=== PATIENT | female | born 1935 | race Caucasian/White ===

== ENCOUNTER 2016-10-01 16:44 | Emergency (ER) | payer MEDICARE ==
[2016-10-01] MEDS ORDERED: CEFUROXIME AXETIL 250 MG TABLET PO STA (17:29)
[2016-10-01] MEDS ORDERED: DEXAMETHASONE 10 MG/ML VIAL PO STA (17:29)
[2016-10-01] MEDS ORDERED: DEXAMETHASONE 10 MG/ML VIAL ONE (17:36)
[2016-10-01] MEDS ORDERED: CHERRY SYRUP 10 ML UDC PO ONE (17:36)
[2016-10-01] MEDS ORDERED: CEPHALEXIN 250 MG CAPSULE PO STA (17:38)
[2016-10-01] MEDS ORDERED: CEPHALEXIN 250 MG CAPSULE PO ONE (17:38)
== END 2016-10-01 17:48 | disposition home or self-care (01) ==
DX: J40 Bronchitis, not specified as acute or chronic (principal); R13.10 Dysphagia, unspecified; I10 Essential (primary) hypertension; Z85.89 Personal history of malignant neoplasm of other organs and systems; Z95.5 Presence of coronary angioplasty implant and graft; Z79.82 Long term (current) use of aspirin; Z87.891 Personal history of nicotine dependence
CPT/HCPCS: 71020; 99283; A9270

== ENCOUNTER 2016-11-25 16:56 | Emergency (ER) | payer MEDICARE ==
[2016-11-25] MEDS ORDERED: predniSONE 20 MG TABLET PO STA (17:30)
[2016-11-25] MEDS ORDERED: AZITHROMYCIN 250 MG TABLET PO STA (17:30)
[2016-11-25] MEDS ORDERED: AZITHROMYCIN 250 MG TABLET PO ONE (17:57)
[2016-11-25] MEDS ORDERED: predniSONE 20 MG TABLET ONE (17:57)
== END 2016-11-25 18:26 | disposition home or self-care (01) ==
DX: J40 Bronchitis, not specified as acute or chronic (principal); I10 Essential (primary) hypertension; Z85.01 Personal history of malignant neoplasm of esophagus; Z87.19 Personal history of other diseases of the digestive system; I25.2 Old myocardial infarction; E03.9 Hypothyroidism, unspecified; Z87.891 Personal history of nicotine dependence
CPT/HCPCS: 71020; 99283; A9270; J7512

== ENCOUNTER 2016-12-17 04:17 | Outpatient (CLI) | payer MEDICARE | END 2016-12-17 04:18 | disposition critical access hospital (66) | DX: R06.02 Shortness of breath (principal) | CPT/HCPCS: A0425; A0427 ==

== ENCOUNTER 2016-12-17 04:30 | Emergency (ER) | payer MEDICARE ==
[2016-12-17] MEDS ORDERED: DEXAMETHASONE 10 MG/ML VIAL IVP STA (04:37)
[2016-12-17] MEDS ORDERED: RACEPINEPHRINE 2.25% NEB INH ONE ×2 (04:39→09:00)
[2016-12-17] MEDS ORDERED: DEXAMETHASONE 10 MG/ML VIAL ONE (04:42)
[2016-12-17] MEDS ORDERED: RACEPINEPHRINE 2.25% NEB INH STA ×2 (04:46→08:52)
[2016-12-17] MEDS ORDERED: D5.45NS W/20 MEQ KCL 1,000 ML IV STA (08:36)
[2016-12-17] MEDS ORDERED: D5.45NS W/20 MEQ KCL 1,000 ML IV SCH (09:00)
[2016-12-17] MEDS ORDERED: SODIUM CHLORIDE INHALATION 3 ML NEB ONE (09:01)
== END 2016-12-17 10:39 | disposition short-term general hospital (02) ==
DX: R06.1 Stridor (principal); C13.9 Malignant neoplasm of hypopharynx, unspecified; C79.89 Secondary malignant neoplasm of other specified sites; I10 Essential (primary) hypertension; I25.2 Old myocardial infarction; E03.9 Hypothyroidism, unspecified; Z87.19 Personal history of other diseases of the digestive system; Z87.891 Personal history of nicotine dependence
CPT/HCPCS: 70360; 94640; 96365; 96375; 99284; A9270

== ENCOUNTER 2017-02-03 19:18 | Emergency (ER) | payer MEDICARE ==
--- NOTE | 2017-02-03 19:37 | ED Physician Documentation ---
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 and it is obstructed today.) Review of Systems Constitutional: reports: Reviewed and negative Cardiac: reports: Reviewed and negative Respiratory: reports: Reviewed and negative PD PAST MEDICAL HISTORY - Past Medical History Cardiovascular: Hypertension, [place] Respiratory: None Neuro: None Endocrine/Autoimmune: HyPOthyroidism GI: Diverticulitis : None HEENT: Other Psych: None Musculoskeletal: Other Derm: None - Past Surgical History Past Surgical History: Yes General: Cholecystectomy Cardiovascular: Coronary stent HEENT: Tonsil/Adenoidectomy - Present Medications Home Medications: Ambulatory Orders Medication Instructions Recorded Confirmed Atenolol [Tenormin] 50 mg PO BID 11/30/13 12/17/16 Felodipine [Felodipine ER] 10 mg PO DAILY 05/30/16 12/17/16 Levothyroxine Sodium 75 mcg PO DAILY 05/30/16 12/17/16 Omeprazole 20 mg PO DAILY 05/30/16 12/17/16 Simvastatin 40 mg PO QPM 05/30/16 12/17/16 cloNIDine [Catapres] 0.1 mg ORAL QPM 10/01/16 12/17/16 Cholecalciferol (Vitamin D3) 1 cap ORAL DAILY 12/17/16 12/17/16 [Vitamin D3] Cyanocobalamin (Vitamin B-12) 1 tab ORAL DAILY 12/17/16 12/17/16 [Vitamin B-12 (500 mcg sublingual)] Hydrochlorothiazide 12.5 mg ORAL DAILY 12/17/16 12/17/16 Ibuprofen 400 mg ORAL PRN PRN 12/17/16 12/17/16 Lisinopril 1 tab ORAL BID 12/17/16 12/17/16 Multivit with Iron-Minerals 1 tab ORAL DAILY 12/17/16 12/17/16 [Cerovite Jr] Ubidecarenone [Co Q-10] 1 cap ORAL DAILY 12/17/16 12/17/16 oxyCODONE [Roxicodone] 1 tab ORAL PRN PRN 12/17/16 12/17/16 - Allergies Allergies/Adverse Reactions: Allergies Allergy/AdvReac Type Severity Reaction Status Date / Time No Known Drug Allergies Allergy Verified 12/17/16 04:34 - Social History Does the pt smoke?: No Smoking Status: Former smoker Does the pt drink ETOH?: No Does the pt have substance abuse?: No - Immunizations Immunizations are current?: Yes - POLST Patient has POLST: No PD ED PE NORMAL - Vitals Vital signs reviewed: Yes - General General: No acute distress, Other (Nonverbal) - HEENT HEENT: Other (NG tube right nares) - Abdomen Abdomen: Soft, Non tender - Psych Psych: Normal mood, Normal affect Results - Vitals Vitals: Vital Signs - 24 hr 02/03/17 02/03/17 19:23 23:05 Heart Rate 60 53 L Respiratory 18 19 Rate Blood Pressure 176/69 H 190/57 H O2 Saturation 98 99 Oxygen O2 Source Room air PD MEDICAL DECISION MAKING - ED course ED course: Tried flushing the NG tube with water, it was completely obstructed, tried [employer], then used to central line guidewire with which went in but was too short to clear the obstruction. Found a longer wire, multiple more attempts were made but still unable to clear the obstruction. The R.N. tried as well without success. I spoke with Dr. Lu, ENT surgeon at [facility] who felt that the tube should be replaced, although the patient was not wild about that idea. Hoever after a few more hours of attempted flushing and using "clog zapper" we were able to clear the obstruction. Departure - Departure Disposition: 01 Home, Self Care Clinical Impression: Feeding tube blocked Qualifiers: Encounter type: initial encounter Qualified Code(s): T85.598A - Other mechanical complication of other gastrointestinal prosthetic devices, implants and grafts, initial encounter HTN (hypertension) Qualifiers: Hypertension type: essential hypertension Qualified Code(s): I10 - Essential ( primary) hypertension Condition: Good Record reviewed to determine appropriate education?: Yes Instructions: Tube NG Care Dc Comments: Flush tube with water after each use and crush pills VERY well.. Discharge Date/Time: 02/03/17 23:10
[2017-02-03 23:05] VITALS: BP 190/57
== END 2017-02-03 23:10 | disposition home or self-care (01) ==
LOC: ED 19:18
DX: T85.598A Other mechanical complication of other gastrointestinal prosthetic devices, implants and grafts, initial encounter (principal); I10 Essential (primary) hypertension; E03.9 Hypothyroidism, unspecified; I25.2 Old myocardial infarction; Z87.19 Personal history of other diseases of the digestive system; Z87.891 Personal history of nicotine dependence
CPT/HCPCS: 99283; 99284

== ENCOUNTER 2017-02-12 21:11 | Emergency (ER) | payer MEDICARE ==
--- NOTE | 2017-02-12 22:22 | ED Physician Documentation ---
History of Present Illness - Stated complaint Stated Complaint: CLOGGED FOOD TUBE - Chief complaint Chief Complaint: General - History obtained from History obtained from: Patient, Family - History of Present Illness Timing: Other (Her feeding tube became clogged again today. 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 and anticipate having tube in for another 3 weeks.) Review of Systems Constitutional: reports: Reviewed and negative Cardiac: reports: Reviewed and negative Respiratory: reports: Reviewed and negative PD PAST MEDICAL HISTORY - Past Medical History Cardiovascular: Hypertension, [place] Respiratory: None Neuro: None Endocrine/Autoimmune: HyPOthyroidism GI: Diverticulitis : None HEENT: Other Psych: None Musculoskeletal: Other Derm: None - Past Surgical History Past Surgical History: Yes General: Cholecystectomy Cardiovascular: Coronary stent HEENT: Tonsil/Adenoidectomy - Present Medications Home Medications: Ambulatory Orders Medication Instructions Recorded Confirmed Atenolol [Tenormin] 50 mg PO BID 11/30/13 12/17/16 Felodipine [Felodipine ER] 10 mg PO DAILY 05/30/16 12/17/16 Levothyroxine Sodium 75 mcg PO DAILY 05/30/16 12/17/16 Omeprazole 20 mg PO DAILY 05/30/16 12/17/16 Simvastatin 40 mg PO QPM 05/30/16 12/17/16 cloNIDine [Catapres] 0.1 mg ORAL QPM 10/01/16 12/17/16 Cholecalciferol (Vitamin D3) 1 cap ORAL DAILY 12/17/16 12/17/16 [Vitamin D3] Cyanocobalamin (Vitamin B-12) 1 tab ORAL DAILY 12/17/16 12/17/16 [Vitamin B-12 (500 mcg sublingual)] Hydrochlorothiazide 12.5 mg ORAL DAILY 12/17/16 12/17/16 Ibuprofen 400 mg ORAL PRN PRN 12/17/16 12/17/16 Lisinopril 1 tab ORAL BID 12/17/16 12/17/16 Multivit with Iron-Minerals 1 tab ORAL DAILY 12/17/16 12/17/16 [Cerovite Jr] Ubidecarenone [Co Q-10] 1 cap ORAL DAILY 12/17/16 12/17/16 oxyCODONE [Roxicodone] 1 tab ORAL PRN PRN 12/17/16 12/17/16 - Allergies Allergies/Adverse Reactions: Allergies Allergy/AdvReac Type Severity Reaction Status Date / Time No Known Drug Allergies Allergy Verified 02/12/17 21:22 - Social History Does the pt smoke?: No Smoking Status: Former smoker Does the pt drink ETOH?: No Does the pt have substance abuse?: No - Immunizations Immunizations are current?: Yes - POLST Patient has POLST: No PD ED PE NORMAL - Vitals Vital signs reviewed: Yes - General General: Alert and oriented X 3, No acute distress, Other (uses a [employer] to write, nonverbal) - HEENT HEENT: Other (NGT in R nares, clogged) - Neuro Neuro: Alert and oriented X 3, No motor deficit, No sensory deficit - Psych Psych: Normal mood, Normal affect Results - Vitals Vitals: Vital Signs - 24 hr 02/12/17 02/12/17 21:17 23:18 Temperature 36.7 C 36.2 C L Heart Rate 62 63 Respiratory 16 18 Rate Blood Pressure 169/62 H 181/58 H O2 Saturation 100 100 Oxygen O2 Source Room air PD MEDICAL DECISION MAKING - ED course ED course: It took a while but using a combination of syringe radiation, clog zapper, and a wire I was able to unclog her feeding tube. Departure - Departure Disposition: 01 Home, Self Care Clinical Impression: Feeding tube blocked Qualifiers: Encounter type: initial encounter Qualified Code(s): T85.598A - Other mechanical complication of other gastrointestinal prosthetic devices, implants and grafts, initial encounter Condition: Good Record reviewed to determine appropriate education?: Yes Comments: Flush feeding tube several times with water before and after each feeding. Your blood pressure was elevated today on check in to the emergency department. This does not mean that you have hypertension, it is a common phenomenon to check into the emergency department and have elevated blood pressure. I recommend that you see your primary care physician within the week to have it rechecked when you're feeling better. Discharge Date/Time: 02/12/17 23:45
[2017-02-12 23:19] VITALS: BP 181/58
== END 2017-02-12 23:45 | disposition home or self-care (01) ==
LOC: ED 21:11
DX: T85.598A Other mechanical complication of other gastrointestinal prosthetic devices, implants and grafts, initial encounter (principal); R03.0 Elevated blood-pressure reading, without diagnosis of hypertension; I25.2 Old myocardial infarction; E03.9 Hypothyroidism, unspecified; Z87.891 Personal history of nicotine dependence
CPT/HCPCS: 99283

== ENCOUNTER 2017-02-18 22:42 | Emergency (ER) | payer MEDICARE ==
--- NOTE | 2017-02-19 00:26 | ED Physician Documentation ---
History of Present Illness - Stated complaint Stated Complaint: FOOD TUBE CLOG - Chief complaint Chief Complaint: General - History obtained from History obtained from: Patient, Family - History of Present Illness Timing: How many hours ago (4) - Additonal information Additional information: The patient is an 81-year-old female with history of vocal cord cancer, status post tracheostomy, and feeding tube placement, who presents with a clogged feeding tube. She finished her last feeding about 4-1/2 hours prior to arrival. Subsequently she was unable to flush the tubing. She has a history of similar episodes in the past, These have been corrected with administration of feeding tube clog buster. Review of Systems Constitutional: denies: Fever Nose: denies: Congestion Cardiac: denies: Chest pain / pressure Respiratory: denies: Dyspnea GI: denies: Abdominal Pain, Vomiting PD PAST MEDICAL HISTORY - Past Medical History Cardiovascular: Hypertension, [place] Respiratory: None Neuro: None Endocrine/Autoimmune: HyPOthyroidism GI: Diverticulitis : None HEENT: Other Psych: None Musculoskeletal: Other Derm: None - Past Surgical History Past Surgical History: Yes General: Cholecystectomy Cardiovascular: Coronary stent HEENT: Tonsil/Adenoidectomy - Present Medications Home Medications: Ambulatory Orders Medication Instructions Recorded Confirmed Atenolol [Tenormin] 50 mg PO BID 11/30/13 02/18/17 Felodipine [Felodipine ER] 10 mg PO DAILY 05/30/16 02/18/17 Levothyroxine Sodium 75 mcg PO DAILY 05/30/16 02/18/17 Omeprazole 20 mg PO DAILY 05/30/16 02/18/17 Simvastatin 40 mg PO QPM 05/30/16 02/18/17 cloNIDine [Catapres] 0.1 mg ORAL QPM 10/01/16 02/18/17 Cholecalciferol (Vitamin D3) 1 cap ORAL DAILY 12/17/16 02/18/17 [Vitamin D3] Cyanocobalamin (Vitamin B-12) 1 tab ORAL DAILY 12/17/16 02/18/17 [Vitamin B-12 (500 mcg sublingual)] Hydrochlorothiazide 12.5 mg ORAL DAILY 12/17/16 02/18/17 Ibuprofen 400 mg ORAL PRN PRN 12/17/16 02/18/17 Lisinopril 1 tab ORAL BID 12/17/16 02/18/17 Multivit with Iron-Minerals 1 tab ORAL DAILY 12/17/16 02/18/17 [Cerovite Jr] Ubidecarenone [Co Q-10] 1 cap ORAL DAILY 12/17/16 02/18/17 oxyCODONE [Roxicodone] 1 tab ORAL PRN PRN 12/17/16 02/18/17 - Allergies Allergies/Adverse Reactions: Allergies Allergy/AdvReac Type Severity Reaction Status Date / Time No Known Drug Allergies Allergy Verified 02/18/17 22:55 - Social History Does the pt smoke?: No Smoking Status: Former smoker Does the pt drink ETOH?: No Does the pt have substance abuse?: No - Immunizations Immunizations are current?: Yes - POLST Patient has POLST: No PD ED PE NORMAL - Vitals Vital signs reviewed: Yes (systolic hypertension) - General General: Alert and oriented X 3, Well developed/nourished, Other (Pleasant elderly female with feeding tube and tracheostomy in place.) - HEENT HEENT: Atraumatic, EOMI - Neck Neck: No adenopathy, Other (Tracheostomy, with clean site.) - Cardiac Cardiac: RRR - Respiratory Respiratory: No respiratory distress - Abdomen Abdomen: Soft, Non tender - Derm Derm: No rash - Neuro Neuro: Alert and oriented X 3 Results - Vitals Vitals: Oxygen O2 Source Room air PD MEDICAL DECISION MAKING - ED course Complexity details: reviewed old records, re-evaluated patient, considered differential, d/w patient, d/w family ED course: The patient's clogged feeding tube was corrected after administration of feeding tube clogged zapper. After treatment the feeding tube was easily flushed. Departure - Departure Disposition: 01 Home, Self Care Clinical Impression: Feeding tube blocked Qualifiers: Encounter type: initial encounter Qualified Code(s): T85.598A - Other mechanical complication of other gastrointestinal prosthetic devices, implants and grafts, initial encounter Condition: Stable Follow-Up: Bruce Barth MD [Primary Care Provider] - Comments: Continue tube feedings as previously prescribed. Follow-up with your primary physician or return to the emergency department if you develop recurrent tube blockage, or otherwise worsening symptoms. Discharge Date/Time: 02/19/17 00:29
[2017-02-19 00:28] VITALS: BP 175/64
== END 2017-02-19 00:29 | disposition home or self-care (01) ==
LOC: ED 22:42
DX: K94.23 Gastrostomy malfunction (principal); I10 Essential (primary) hypertension; I25.2 Old myocardial infarction; E03.9 Hypothyroidism, unspecified; Z85.21 Personal history of malignant neoplasm of larynx; Z95.5 Presence of coronary angioplasty implant and graft
CPT/HCPCS: 99283

== ENCOUNTER 2017-03-19 08:32 | Outpatient (CLI) | payer MEDICARE | END 2017-03-19 08:33 | disposition home or self-care (01) | LOC: LAB 08:32 | PROVIDERS: ATTEND Internal Medicine | DX: E03.9 Hypothyroidism, unspecified (principal) | CPT/HCPCS: 36415; 84443 ==

== ENCOUNTER 2017-05-22 12:00 | Outpatient (CLI) | payer MEDICARE ==
--- NOTE | 2017-05-22 16:42 | CONSULTATION NOTE ---
Palliative Care Consultation - Referral Referring Provider: Purnima RODRIGUEZ Time of Visit: Referral setting: Home (patient with increase weakness; poor activity tolerance ; and to facilitate family conference, it is a taxing and considerable effort to leave the home) Referral Reason: Failure to Thrive - Information Sources Records reviewed: Previous records reviewed History/Review of Systems obtained from: Patient, Family (Daughter Natali present and participated in visit) Exam limitations: No limitations - History of Present Illness Brief History of Present Illness: This is a delightful 81-year-old woman who underwent a larygopharyngectomy in December of 2016. She had reconstruction with a radial forearm fasciocutaneous microvascular free flap. 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 She is seen by Dr. deshawn Arvizu, at the head and neck oncology and microcytic vascular surgery department at [facility] [place]. 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 He continuously leaks fluid, serosanguineous with out eating, food staff with eating. She finds this quite distressing as she is unable to eat in public as she leaks all over her front of her close and actually down into her tracheostomy. She has been working with speech therapy for both voice and swallowing. She finds it takes her close to an hour just to get 6-8 ounces of boost down, she is feeling overwhelmed at her weight loss, trying to keep up, and physically feeling poorly with dehydration and low calories. She currently weighs 99 pounds, she lost 20 pounds in the last 2 months and prior to the surgery and lost another 20 pounds, 40 pounds total from her baseline. For this third cancer, she presented with a right hypopharyngeal mass. 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 At that point in time she underwent a partial glossectomy and a neck dissection. She did have postoperative adjuvant radiotherapy. She also had a PEG tube at that time to support her nutritional status. In 2013 she developed a pharyngeal cancer which was excised with the micro-laser technique and did not require any further support. In this last July she started to complain of dysphagia, had lost 20 pounds, and complaining of right-sided pain as well as increased coughing episodes. She was quite frustrated as she has lost about 20 pounds prior to getting a final diagnosis. Medical/Surgical History - Past Medical History Cardiovascular: reports: Hypertension, High cholesterol, [place] Respiratory: reports: None Neuro: reports: None, Other (Belles Palsy) Endocrine/Autoimmune: reports: HyPOthyroidism GI: reports: Chronic constipation (tongue cancer;), Diverticulitis KIER BOILER: reports: Breast cancer : reports: None HEENT: reports: Other Psych: reports: None Musculoskeletal: reports: Osteoarthritis (hoping to get left hip done;), Fatigue , Other (hip fracture 05/2016) Derm: reports: Other (fistula) MRSA Hx?: No - Past Surgical History General: reports: Cholecystectomy Ortho: reports: Other (hip repair on right for fracture) /KIER BOILER: reports: Other (lumpectomy) Cardiovascular: reports: Coronary stent HEENT: reports: Tonsil/Adenoidectomy Derm: reports: Skin grafts Other past surgical history: right thyroid lobectomy and isthmusectomy - Substance History Use: Uses substance without health or social issues: Tobacco (quit smoking), Alcohol Social History - Living Situation Living arrangement: At home Living Situation: With spouse/s.o. (has mod/severe dementia), With family ( daughter Natali has moved in to assist with caregiving) Support System: has four children; with dementia needing supervision, he goes to time together 2 x a week for respite to go to appointments Family History - Family History Family History: Mother: ( in childbirth), Father: , Alcoholism (age 49) Medications/Allergies - Medications Home Medications: Ambulatory Orders Medication Instructions Recorded Confirmed Atenolol [Tenormin] 50 mg PO BID 11/30/13 02/18/17 Levothyroxine Sodium 75 mcg PO DAILY 05/30/16 05/22/17 cloNIDine [Catapres] 0.1 mg ORAL QPM 10/01/16 05/22/17 Lisinopril 40 mg ORAL BID 12/17/16 05/22/17 - Allergies Allergies/Adverse Reactions: Allergies Allergy/AdvReac Type Severity Reaction Status Date / Time No Known Drug Allergies Allergy Verified 02/18/17 22:55 Review of Systems - Constitutional Constitutional: reports: Fatigue, Weakness, Poor appetite, Weight loss. denies : Fever, Chills - Eyes Eyes: reports: Vision loss - Ears, Nose & Throat Ears, Nose & Throat: reports: Hearing loss (mild), Dry mouth, Other ( tracheostomy) - Cardiovascular Cardiovascular: reports: Irregular heart rate, Lightheadedness, Exertional dyspnea, Decr. exercise tolerance. denies: Chest pain, Edema - Respiratory Respiratory: reports: Sputum production (clear; able to cough out easily; uses humidity in home), SOB with exertion - Gastrointestinal Gastrointestinal: reports: Constipation, Poor appetite, Early satiety. denies: Nausea - Genitourinary Genitourinary: denies: Incontinence - Musculoskeletal Musculoskeletal: reports: Muscle aches, Stiffness, Limited range of motion ( left hip), Muscle weakness - Integumentary Integumentary: reports: Other (fistula opening less than 1 cm; draining enough to saturate small guaze 5 + times a day; plus when eats in spilling on to clothes;) - Neurological Neurological: reports: General weakness - Psychiatric Psychiatric: reports: Depression (very tearful through visit; feeling overwhelmed) - Endocrine Endocrine: reports: Hypothyroidism - Hematologic/Lymphatic Hematologic/Lymphatic: denies: Recurrent infections - All Other Systems All Other Systems: reports: Reviewed and negative Physical Exam - Vital Signs Temperature: 96.7 C Pulse Rate: 50 Respiratory Rate: 18 O2 Saturation: 95 (ra @ rest) Blood Pressure: 172/58 - Physical Exam General Appearance: positive: Mild distress (feeling overwhelmed by her current situation) Eyes Bilateral: positive: Normal inspection ENT: positive: Other (tongue with partial missing on right; back of left oral cavity some white matter; denies hx of candidiasis or discomfort; white adherent coating; no areas of bleeding or abnormal tissue appreciated grossly) Neck: positive: Other (scarred neck from surgery; tracheostomy opening clear; edges clean. incision with small opeining draining creamy serosangious fluid on dressing) Cardiovascular: positive: Bradycardia, Systolic murmur Respiratory: positive: Breath sounds nml Abdomen: positive: Non-tender, Soft, Nml bowel sounds Skin: positive: Dryness Extremities: positive: Nml appearance, No pedal edema, Other (limited ROM left hip and limited ambulation related to pain; had hoped to get replaced but had surgery for cancer) Neurologic/Psychiatric: positive: Oriented x3, Weakness, Depressed mood/affect, Other (using electolarynx actually fairly well; considereing voice prosthesis; is planning to attend support group next month in [place]) Palliative Care - POLST Patient has POLST: No Pain: No pain Tiredness/Fatigue: Moderate (4-6) (feeling poorly with decreased intake) Drowsiness/Sedation: None Nausea: None Depression: Moderate (4-6) Anxiety: Moderate (4-6) (worried about how to address current situation) Dyspnea: Mild (1-3) Anorexia: Weight loss Sleep: Variable sleep pattern (dependent on husbands wandering related to his dementia; often interfers in her sleep) Constipation: Yes, Unmanaged Feelings of wellbeing/Perceived Quality of Life: Poor, Worsening Performance Status: Patient limited by left hip pain secondary to osteoarthritis as far as long distance ambulation. Her activity level and tolerance is limited by her most likely mild dehydration and decreased calorie intake. She does present with deconditioning and weakness and is quite distressed by this. - Palliative Care Discussion: Patient believes that her durable power family law attorney is set up with her daughter Natali, she will see if she has appropriate documents, if not we will pursue this. Patient's does have dementia and this would not be appropriate. In discussing patient's goals, her short-term goal is to feel both physically and emotionally better, she is feeling quite depressed with persistent hopelessness and helplessness given her current situation. She currently is not able to meet her caloric needs, she is quite embarrassed with her body image with this fistula, and has tended to isolate herself both regarding feeding but also in socialization because of her speech. She does wish, to hope for the best, she most likely has some time in measurement of years, until next recurrence. Recurrences tend to be regional. But given her frail state, weight loss, and risk for infection this is of great concern both to her and her family. Her goal is to remain healthy, and able to support and care for her with dementia, she does have some assistance with this but would like to be more participatory. She values her akua community which is [employer], and very much has family support. We did introduce advanced directives including 5 wishes as a tool to help direct was most important to her, as well as a POLST if her wishes were such that included DNA R. Currently she has limited understanding regarding advanced advanced directives, this is her first visit and establishing rapport. 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 She is presenting as a failure to thrive, with weight loss, dehydration, and functional decline. Given the limitations of her current dysphasia secondary to surgery, she is unable to meet her caloric needs. This is also complicated by her fistula. I would recommend tube feedings for support, and weighing risks and benefits, particularly the impact on patient's current quality of life will see about moving forward on this request. Recommendations/Counseling Done: 1.Weight loss. Given the limitations are related to her surgery, patient's difficulty with swallowing, and ongoing complications related to her fistula she is unable to meet her current caloric needs. She has had PEG tube feedings in the past, she is definitely not interested in nasogastric feeding again, but would entertain surgery for a PEG. I suspect she would do better with a J-tube unclear as far as her risk for aspiration from reflux. She has managed before, this should meet short-term goal for weight gain adequate fluid intake and increase calories. Help with healing of the fistula as well as improved swallow she may eventually be able to meet her caloric needs orally. At this point in time this would be an impossible task. Will follow up with head and neck surgeon, most likely would be more practical to have placed locally. After feedback from Dr. Arvizu's office will proceed with PCP and making recommendation for tube feedings. She is [place] so will need to come from their office. 2. Depression. This is multifactorial in origin. We did discuss addressing the underlying etiology which currently is her distress with her physical decline, admitting this impacts her emotionally. She is quite tearful through our conversation. Introduced use of antidepressant, but would recommend first moving forward on tube feedings, and see if this improves her outlook as well as her physical and emotional well-being. 3. Constipation. Patient reports hard stool every 4-5 days, instructed to start MiraLAX at 17 g daily, decrease or hold for loose stools with the goal of daily soft BM to assist with good GI health. 4. Hypertension. Patient presents with hypertension today, will have patient keep log and follow up with PCP. May need to get hydrated before baseline established. 5. Advanced care planning. Introduced the concept of advanced directives, durable power of health family law attorney, and defining patient's most important goals. Currently her short-term goal is to pursue further tube feedings, will work with surgeon and PCP to help facilitate this, I suspect this will be the most impactful as far as her quality of life. Second goal, if she were to have weight gain, would be able to revisit as scheduled hip surgery for her left hip. She has at baseline been very active, walking neighborhood, and now is limited by her pain as well as her weakness.Third goal, she is interested in pursuing the use of a voice prosthesis and will follow up with her surgeon regarding this at her next appointment. Thank you Purnima Pineda palliative care consult service to be involved in the care of your patient she does have significant underlying complex care needs, I suspect her prognosis is actually measured in years, thus we need to address her current underlying symptoms that are presenting as failure to thrive. Time Spent: 75 minutes with greater than 50% done in counseling regarding goals of care, nutrition, and anticipatory guidance. Will add addendum had left message for surgeon for follow up on input fistula, type of feeding tube
== END 2017-05-22 12:01 | disposition home or self-care (01) ==
LOC: PC 12:00
PROVIDERS: ATTEND Nurse Practitioner Adult Health
DX: Z51.5 Encounter for palliative care (principal); R62.7 Adult failure to thrive; R63.4 Abnormal weight loss; F32.9 Major depressive disorder, single episode, unspecified; K59.00 Constipation, unspecified; I10 Essential (primary) hypertension; J39.2 Other diseases of pharynx; Z93.0 Tracheostomy status; R53.1 Weakness; R68.81 Early satiety; M16.12 Unilateral primary osteoarthritis, left hip; E86.0 Dehydration
CPT/HCPCS: 99345

== ENCOUNTER 2017-05-23 13:31 | Outpatient (CLI) | payer MEDICARE ==
[2017-05-23 14:15] LABS: CREATININE 0.5 mg/dL (0.4-1.0)
[2017-05-23] MEDS ORDERED: IOPAMIDOL-300 100 ML VIAL ONE (15:59)
[2017-05-23] MEDS ORDERED: IOPAMIDOL-300 100 ML VIAL IVP ONE (16:13)
--- NOTE | 2017-05-24 09:53 | CT Report ---
CT CHEST WITH CONTRAST: 05/23/2017 CLINICAL INDICATION: Hypopharyngeal cancer. TECHNIQUE: Axial CT images of the chest were obtained with 100 mL Isovue-300 intravenously. No prev ious chest CT is available for comparison. In accordance with CT protocol optimization, one or more of the following dose reduction techniques w ere utilized for this exam: automated exposure control, adjustment of mA and/or KV based on patient size, or use of iterative reconstructive technique. FINDINGS: The heart and great vessels demonstrate atherosclerotic calcifications. There is fibrosis in the anterior left upper lobe, likely representing post-radiation change. There is a 9-mm nodule in the medial left upper lobe, a 9-mm nodule in the medial right lower lobe, and a 5-mm nodule in the left lower lobe, likely representing metastatic disease. No effusion or pneumothorax is present. O sseous structures demonstrate degenerative changes. There are small mixed lytic and sclerotic lesion s in the T2 vertebral body, suspicious for metastatic disease. If clinically warranted, bone scan wo uld be more sensitive. Limited evaluation of upper abdominal structures demonstrates normal adrenal glands. IMPRESSION: 1. MULTIPLE BILATERAL PULMONARY NODULES, SUSPICIOUS FOR METASTATIC DISEASE. 2. MIXED LYTIC AND SCLEROTIC LESION IN THE T2 VERTEBRAL BODY, ALSO SUSPICIOUS FOR METASTATIC DISEASE . IF CLINICALLY WARRANTED, BONE SCAN MAY BE HELPFUL. JOB #: [id number] EXT JOB #:[id number]
--- NOTE | 2017-05-24 09:54 | CT Report ---
CT NECK WITH CONTRAST: 05/23/2017 CLINICAL INDICATION: Hypopharyngeal cancer. TECHNIQUE: Axial CT images of the neck were obtained with 100 mL Isovue-300 intravenously. COMPARISON: Previous neck CT 08/30/2011. FINDINGS: The patient has undergone interval neck dissection and tracheostomy. There is a heterogen eously enhancing mass arising in the prevertebral soft tissues, just right of midline, measuring 3.1 x 3.1 x 2.3 cm. There is no identifiable fat plane this mass from the right common and in ternal carotid arteries. This likely represents recurrent or residual tumor. The arterial structure s, however, enhance normally, and while there is compression of the right internal jugular vein, it is patent. Osseous structures demonstrate degenerative changes. Please also refer to CT chest of e same day. IMPRESSION: A 3.1 X 3.1 X 2.3 CM HETEROGENEOUSLY ENHANCING MASS ARISING IN THE PREVERTEBRAL SOFT TIS SUES JUST RIGHT OF MIDLINE, LIKELY REPRESENTING TUMOR. NEW TRACHEOSTOMY. In accordance with CT protocol optimization, one or more of the following dose reduction techniques w ere utilized for this exam: automated exposure control, adjustment of mA and/or KV based on patient size, or use of iterative reconstructive technique. JOB #: [id number] EXT JOB #:[id number]
== END 2017-05-23 13:32 | disposition home or self-care (01) ==
LOC: LAB 13:31
PROVIDERS: ATTEND Otolaryngology Plastic Surgery within the Head & Neck
DX: R91.8 Other nonspecific abnormal finding of lung field (principal); M48.9 Spondylopathy, unspecified; R22.1 Localized swelling, mass and lump, neck; Z93.0 Tracheostomy status
CPT/HCPCS: 36415; 70491; 71260; 82565; 84520; Q9967

== ENCOUNTER 2017-05-28 20:02 | Outpatient (CLI) | payer MEDICARE | END 2017-05-28 20:03 | disposition critical access hospital (66) | LOC: EMS 20:02 | PROVIDERS: ATTEND Surgery | DX: R53.1 Weakness (principal) | CPT/HCPCS: A0425; A0427 ==

== ENCOUNTER 2017-05-28 20:14 | Emergency (ER) | payer MEDICARE ==
[2017-05-28] MEDS ORDERED: SODIUM CHLORIDE 0.9% 1,000 ML IV ONE ×2 (20:50→22:10)
[2017-05-28 21:06] LABS: BASOPHILS # (AUTO) 0.2 10^3/uL (0.0-0.1); EOSINOPHILS % (AUTO) 0.1 %; HCT - HEMATOCRIT 39.3 % (37.0-47.0); HGB - HEMOGLOBIN 12.7 g/dL (12.0-16.0); LYMPHOCYTES # (AUTO) 0.5 10^3/uL (1.5-3.5); LYMPHOCYTES % (AUTO) 3.3 %; MEAN CORPUSCULAR HEMOGLOBIN 26.9 pg (27.0-31.0); MEAN CORPUSCULAR HGB CONC 32.2 g/dL (32.0-36.0); MEAN CORPUSCULAR VOLUME 83.6 fL (81.0-99.0); MEAN PLATELET VOLUME 7.9 fL (7.9-10.8); MONOCYTES # (AUTO) 0.4 10^3/uL (0.0-1.0); MONOCYTES % (AUTO) 2.4 %; NEUTROPHILS # (AUTO) 14.1 10^3/uL (1.5-6.6); NEUTROPHILS % (AUTO) 93.2 %; RED BLOOD COUNT 4.71 10^6/uL (4.20-5.40); RED CELL DISTRIBUTION WIDTH 15.1 % (12.0-15.0); UNCORRECTED WHITE BLOOD COUNT 15.1 x10^3/uL; WHITE BLOOD COUNT 15.1 x10^3/uL (4.8-10.8)
[2017-05-28 21:22] LABS: ALBUMIN/GLOBULIN RATIO 1.4 (1.0-2.2); BILIRUBIN,TOTAL 1.9 mg/dL (0.2-1.0); CALCIUM 9.2 mg/dL (8.5-10.3); CREATININE 0.6 mg/dL (0.4-1.0); MAGNESIUM 1.7 mg/dL (1.7-2.8); PHOSPHORUS 2.9 mg/dL (2.5-4.6); TOTAL PROTEIN 7.2 g/dL (6.7-8.2)
[2017-05-28] MEDS ORDERED: POTASSIUM CHLORIDE 20 MEQ TABLET PO STA (22:05)
[2017-05-28] MEDS ORDERED: POTASSIUM CHLORIDE 20 MEQ TABLET PO ONE (22:15)
--- NOTE | 2017-05-28 22:20 | XRAY Preliminary Report ---
Exam: XR Chest 1 View IMPRESSION: Left base haziness concerning for pneumonia. [facility] SITE ID: [id number]
--- NOTE | 2017-05-28 22:23 | XRAY Report ---
EXAM: CHEST RADIOGRAPHY EXAM DATE: 05/28/2017 10:02 PM. CLINICAL HISTORY: Leukocytosis. COMPARISON: 11/25/2016. TECHNIQUE: 1 view. FINDINGS: Lungs/Pleura: New left base haziness, stable small left midlung nodule, otherwise no focal opacities evident. No pleural effusion. No pneumothorax. Mediastinum: Within exam limitations, the cardiomediastinal contour is normal. Other: No bony abnormality identified. IMPRESSION: Left base haziness concerning for pneumonia. [facility] Referring Provider Line: [phone] SITE ID: [id number]
[2017-05-28] MEDS ORDERED: levoFLOXacin 750 MG/150 ML 750 MG/150 ML BAG IV ONE (22:59)
[2017-05-28 23:01] VITALS: BP 150/61
[2017-05-28 23:01] LABS: BILIRUBIN,URINE NEGATIVE (NEGATIVE); PH,URINE 6.5 PH (5.0-7.5)
[2017-05-28 23:04] LABS: UA w/ MICROSCOPIC CHARGE YES
[2017-05-28 23:09] LABS: UR CULTURE IF IND INDICATED; WBC,URINE 0-3 /HPF (0-5)
[2017-05-28] MEDS ORDERED: levoFLOXacin 250 MG TABLET PO STA (23:15)
[2017-05-28] MEDS ORDERED: levoFLOXacin 250 MG TABLET ONE (23:18)
--- NOTE | 2017-05-28 23:23 | ED Physician Documentation ---
History of Present Illness - Stated complaint Stated Complaint: DIZZY,WEAK,N/V - Chief complaint Chief Complaint: General - History obtained from History obtained from: Patient, Family - History of Present Illness Timing: How many days ago (3) - Additonal information Additional information: Patient is an 81 year old female with a history of metastatic breast cancer with complications including trach, and esophageal restruction. Patient and family report that she has had trouble eating and that today she had generalized weakness. patient states that today she felt a bit dizzy and nauseated. Patient denied any chest pain or shortness of breath. Review of Systems Constitutional: reports: Myalgias, Fatigue. denies: Fever, Chills Eyes: denies: Loss of vision, Irritation Ears: denies: Ear pain, Drainage/discharge Nose: denies: Congestion Throat: reports: Oral lesions / sores, Sore throat. denies: Dental pain / toothache Cardiac: denies: Chest pain / pressure, Palpitations, Calf pain Respiratory: denies: Dyspnea, Cough, Wheezing GI: reports: Nausea. denies: Vomiting, Constipation, Diarrhea : denies: Dysuria, Frequency, Hesitancy Skin: denies: Rash Musculoskeletal: reports: Neck pain. denies: Back pain, Extremity pain Neurologic: reports: Generalized weakness. denies: Focal weakness, Numbness, Difficulty speaking, LOC Psychiatric: denies: Depressed Immunocompromised: reports: Immunocompromised PD PAST MEDICAL HISTORY - Past Medical History Cardiovascular: Hypertension, High cholesterol, [place] Respiratory: None Neuro: None, Other Endocrine/Autoimmune: HyPOthyroidism GI: Chronic constipation, Diverticulitis STRIPPER PRELIMINARY: Breast cancer : None HEENT: Other Psych: None Musculoskeletal: Osteoarthritis, Fatigue, Other Derm: Other Other Past Medical History: Carter's Palsy - Past Surgical History Past Surgical History: Yes General: Cholecystectomy Ortho: Other /STRIPPER PRELIMINARY: Other Cardiovascular: Coronary stent HEENT: Tonsil/Adenoidectomy Derm: Skin grafts - Present Medications Home Medications: Ambulatory Orders Medication Instructions Recorded Confirmed Atenolol [Tenormin] 50 mg PO BID 11/30/13 05/28/17 Levothyroxine Sodium 75 mcg PO DAILY 05/30/16 05/28/17 cloNIDine [Catapres] 0.1 mg ORAL QPM 10/01/16 05/28/17 Lisinopril 40 mg ORAL BID 12/17/16 05/28/17 Atorvastatin [Lipitor] 10 mg PO DAILY 05/28/17 05/28/17 Levofloxacin [Levaquin] 750 mg PO DAILY #4 tablet 05/28/17 amLODIPine [Norvasc] 10 mg PO DAILY 05/28/17 05/28/17 - Allergies Allergies/Adverse Reactions: Allergies Allergy/AdvReac Type Severity Reaction Status Date / Time avocado Allergy Emesis Verified 05/28/17 20:22 - Social History Does the pt smoke?: No Smoking Status: Never smoker Does the pt drink ETOH?: No Does the pt have substance abuse?: No - Immunizations Immunizations are current?: Yes - POLST Patient has POLST: No PD ED PE NORMAL - Vitals Vital signs reviewed: Yes - General General: Alert and oriented X 3 - HEENT HEENT: Atraumatic - Cardiac Cardiac: RRR, No murmur - Respiratory Respiratory: No respiratory distress - Abdomen Abdomen: Soft, Non distended - Derm Derm: Normal color, Warm and dry, No rash - Extremities Extremities: No deformity, No edema - Neuro Neuro: Alert and oriented X 3, No motor deficit, No sensory deficit, Normal speech - Psych Psych: Normal mood, Normal affect PD ED PE EXPANDED - General General: Alert - HEENT HEENT: Dry mucous membranes, Other (trach stoma, looked clean and well cared for , minimal discharge from former esophageal fistula, no purulent discharge) Results - Vitals Vitals: Vital Signs - 24 hr 05/28/17 05/28/17 05/28/17 20:19 22:33 22:56 Temperature 36.6 C 36.9 C Heart Rate 77 74 70 Respiratory 18 15 14 Rate Blood Pressure 179/77 H 148/58 H 150/61 H O2 Saturation 100 97 Oxygen O2 Source Room air - EKG (time done) 2105 Rate: Rate (enter#) (73) Rhythm: NSR Gregory: Normal Intervals: Normal MI Ischemia: Q waves Compare to prior EKG: Old EKG unavailable - Labs Labs: Laboratory Tests 05/28/17 05/28/17 05/28/17 20:55 20:55 22:50 WBC 15.1 H RBC 4.71 Hgb 12.7 Hct 39.3 MCV 83.6 MCH 26.9 L MCHC 32.2 RDW 15.1 H Plt Count 171 MPV 7.9 Neut # 14.1 H Lymph # 0.5 L [place] # 0.4 Eos # 0.0 Baso # 0.2 H Absolute Nucleated RBC 0.00 Nucleated RBC % 0.0 Sodium 140 Potassium 3.0 L Chloride 103 Carbon Dioxide 24 Anion Gap 13.0 BUN 27 H Creatinine 0.6 Estimated GFR (MDRD) 96 Glucose 125 H Calcium 9.2 Phosphorus 2.9 Magnesium 1.7 Total Bilirubin 1.9 H AST 25 ALT 16 Alkaline Phosphatase 54 Total Protein 7.2 Albumin 4.2 Globulin 3.0 Albumin/Globulin Ratio 1.4 Lipase 29 Urine Color YELLOW Urine Clarity CLEAR Urine pH 6.5 Ur Specific [place] 1.015 Urine Protein NEGATIVE Urine Glucose (UA) NEGATIVE Urine Ketones 40 H Urine Occult Blood TRACE-LYSE Urine Nitrite NEGATIVE Urine Bilirubin NEGATIVE Urine Urobilinogen 0.2 (NORMAL) Ur Leukocyte Esterase TRACE H Urine RBC 6-10 H Urine WBC 0-3 Ur Squamous Epith Cells RARE Squamous Urine Bacteria Rare Ur Microscopic Review INDICATED Urine Culture Comments INDICATED - Rads (name of study) chest x-ray Radiology: Final report received (left base haziness concerning for pneumonia) PD MEDICAL DECISION MAKING - ED course Complexity details: reviewed old records, reviewed results, re-evaluated patient , considered differential, d/w patient, d/w family ED course: Patient was seen and examined at bedside. IV access was gained and labs were drawn. Patient was started on a fluid bolus. Patient was find to be mildly dehydrated with a leukocytosis. Patient was found to have a possible opacity on chest x-ray and was treated with levaquin. patient's potassium was replaced. Patient was fairly high risk with all of her comorbidities and admission was offered but patient stated that she wanted to go home. Patient stated that she understood the risks and would follow up with her doctor or come back if things worsening. Patient required no further work up and was stable for discharge with outpatient follow up. Departure - Departure Disposition: 01 Home, Self Care Clinical Impression: Pneumonia Condition: Good Instructions: ED Pneumonia Adult Follow-Up: Zacarias Lord ARNP [Primary Care Provider] - Within 3 Days Prescriptions: Levofloxacin [Levaquin] 750 mg PO DAILY #4 tablet Comments: Your symptoms today are likely being caused by an infection. You had your first dose of antibiotics today and will need to take it for the next 4 days. I understand that you want to go home, but you are at a risk for getting worse. You will need to follow up with your pmd this week. If you are unable to follow up with your pmd, you should return to the emergency department for further evaluation and care. Discharge Date/Time: 05/28/17 23:37
== END 2017-05-28 23:37 | disposition home or self-care (01) ==
LOC: EDUNIT# → ED 20:14
DX: J18.9 Pneumonia, unspecified organism (principal); I10 Essential (primary) hypertension; E78.00 Pure hypercholesterolemia, unspecified; I25.2 Old myocardial infarction; C50.919 Malignant neoplasm of unspecified site of unspecified female breast; E03.9 Hypothyroidism, unspecified; Z95.5 Presence of coronary angioplasty implant and graft
CPT/HCPCS: 36415; 71010; 80053; 81001; 83690; 83735; 84100; 85025; 87086; 93005; 96360; 99284; A9270; 81003

== ENCOUNTER 2017-06-01 06:11 | Day surgery (SDC) | payer MEDICARE ==
[2017-06-01] MEDS ORDERED: LACTATED RINGERS 1,000 ML IV ONE (06:33)
[2017-06-01] MEDS ORDERED: BUPIVACAINE 0.5%-EPI 1:200000 PF 30 ML VIAL SUBQ ONE (08:11)
[2017-06-01] MEDS ORDERED: LIDOCAINE 1% 50 ML MDV SUBQ ONE (08:11)
[2017-06-01] MEDS ORDERED: MIDAZOLAM 2 MG/2 ML VIAL IVP ONE (08:20)
[2017-06-01] MEDS ORDERED: METOPROLOL 5 MG/5 ML VIAL IVP ONE (08:20)
[2017-06-01] MEDS ORDERED: KETAMINE 500 MG/10 ML VIAL IVP ONE (08:20)
[2017-06-01] MEDS ORDERED: fentaNYL 100 MCG/2 ML VIAL IVP ONE (08:20)
[2017-06-01] MEDS ORDERED: HYDROmorphone 1 MG/ML AMP ONE (08:59)
[2017-06-01] MEDS ORDERED: ONDANSETRON 4 MG/2 ML VIAL ONE (09:21)
[2017-06-01] MEDS ORDERED: SODIUM CHLORIDE FLUSH 0.9% 10 ML SYRINGE IVP ONE (09:22)
[2017-06-01] MEDS ORDERED: HYDROmorphone 1 MG/ML SYRINGE IVP PRN ×2 (11:40→11:41)
[2017-06-01] MEDS ORDERED: SODIUM CHLORIDE FLUSH 0.9% 10 ML SYRINGE IVP PRN (11:45)
[2017-06-01] MEDS ORDERED: ONDANSETRON 4 MG/2 ML VIAL IVP PRN (11:45)
[2017-06-01] MEDS: LACTATED RINGERS 1,000 ML IV SCH (12:21)
[2017-06-01] MEDS: LISINOPRIL 20 MG TABLET PO SCH (13:56)
[2017-06-01] MEDS: ATENOLOL 25 MG TABLET PO SCH ×2 (13:56→20:00)
[2017-06-01] MEDS ORDERED: IBUPROFEN 400 MG TABLET PO PRN (20:09)
[2017-06-01] MEDS ORDERED: cloNIDine 0.1 MG TABLET PO SCH (21:00)
[2017-06-01] MEDS ORDERED: HYDROcod/ACETAM 5/325 MG TABLET PO PRN (22:02)
[2017-06-02 05:32] LABS: ALBUMIN/GLOBULIN RATIO 1.3 (1.0-2.2); BILIRUBIN,TOTAL 1.4 mg/dL (0.2-1.0); CALCIUM 8.7 mg/dL (8.5-10.3); CREATININE 0.4 mg/dL (0.4-1.0); MAGNESIUM 1.6 mg/dL (1.7-2.8); PHOSPHORUS 3.5 mg/dL (2.5-4.6); TOTAL PROTEIN 5.7 g/dL (6.7-8.2)
[2017-06-02 05:47] VITALS: BP 152/58
[2017-06-02] MEDS ORDERED: PANTOPRAZOLE 40 MG VIAL IVP SCH (07:00)
[2017-06-02] MEDS ORDERED: LEVOTHYROXINE 75 MCG TABLET PO SCH (07:00)
[2017-06-02] MEDS ORDERED: NEOMYCIN/BACITRA/POLYMYX OINT PACKET TOP SCH (08:00)
[2017-06-02] MEDS: LACTATED RINGERS 1,000 ML IV SCH (08:21)
[2017-06-02] MEDS: LISINOPRIL 20 MG TABLET PO SCH (08:42)
[2017-06-02] MEDS: ATENOLOL 25 MG TABLET PO SCH (08:42)
--- NOTE | 2017-06-02 10:42 | Discharge Plan ---
Discharge Plan Disposition: Home, Self Care Condition: Fair Diet: Soft Activity Restrictions: Wt Bearing as Tolerated Shower Restrictions: Yes Driving Restrictions: Yes Additional Instructions or Follow Up instructions: 3 cans given partially over 5 hours. Sunday up to 5 cans daily. Flush 15 ml water after each feeding or every 6 hrs. If Nurse from infusion company does not change dressing on Sunday, then make nurse appt Tues at surgery clinic for dressing change. No Smoking: If you smoke, Please STOP! Call for help. Follow-up with: Zacarias Lord ARNP [Primary Care Provider] - 1 Week Keven Da Silva MD [Provider Admit Priv/Credential] - 1 Week
== END 2017-06-02 11:16 | disposition home or self-care (01) ==
LOC: SDS 06:11 → OBS 09:16 → SDS 06-02 11:16
PROVIDERS: ATTEND Surgery
PROC: 0DH63UZ Insertion of Feeding Device into Stomach, Percutaneous Approach (ICD-10-PCS; principal; 2017-06-01 07:30)
PROC: 0DB68ZX Excision of Stomach, Via Natural or Artificial Opening Endoscopic, Diagnostic (ICD-10-PCS; 2017-06-01 07:30)
DX: K22.2 Esophageal obstruction (principal); K44.9 Diaphragmatic hernia without obstruction or gangrene; K29.70 Gastritis, unspecified, without bleeding; C10.9 Malignant neoplasm of oropharynx, unspecified; I10 Essential (primary) hypertension; E78.5 Hyperlipidemia, unspecified; Z85.3 Personal history of malignant neoplasm of breast; I25.2 Old myocardial infarction; F17.200 Nicotine dependence, unspecified, uncomplicated; R39.198 Other difficulties with micturition
CPT/HCPCS: 36415; 43239; 43246; 51701; 80053; 83735; 84100; 84134; 88305; 88342; A9270; J1170; J7120

== ENCOUNTER 2017-06-16 16:56 | Emergency (ER) | payer MEDICARE ==
--- NOTE | 2017-06-16 18:05 | ED Physician Documentation ---
History of Present Illness - Stated complaint Stated Complaint: FEEDING TUBE ISSUE - Chief complaint Chief Complaint: Resp - History obtained from History obtained from: Patient - History of Present Illness Timing: Today Pain level max: 0 Pain level now: 0 Improved by: nothing Worsened by: nothing - Additonal information Additional information: Patient is an 81-year-old female who presents to the emergency department with swelling on the anterior neck. She has a history of laryngeal cancer, status post removal of the larynx. She has a tracheostomy in place and had multiple fistulas, most of the fistulas are closed except one which now appears more swollen than usual. She also has swelling to the anterior neck and was approximately 3 x 3 cm area. Mild redness. Review of Systems Constitutional: denies: Fever, Chills Nose: denies: Rhinorrhea / runny nose, Congestion Throat: denies: Sore throat Cardiac: denies: Chest pain / pressure Respiratory: reports: Cough (mild, brown sputum) GI: denies: Abdominal Pain, Nausea, Vomiting, Diarrhea Skin: denies: Rash PD PAST MEDICAL HISTORY - Past Medical History Past Medical History: Yes Cardiovascular: Hypertension, High cholesterol, [place] Respiratory: None Neuro: None, Other Endocrine/Autoimmune: HyPOthyroidism GI: Chronic constipation, Diverticulitis CHARGER: Breast cancer : None HEENT: Other Psych: Depression Musculoskeletal: Osteoarthritis, Fatigue, Other Derm: Other - Past Surgical History Past Surgical History: Yes General: Cholecystectomy Ortho: Other /CHARGER: Other Cardiovascular: Coronary stent HEENT: Tonsil/Adenoidectomy Derm: Skin grafts - Present Medications Home Medications: Ambulatory Orders Medication Instructions Recorded Confirmed Atenolol [Tenormin] 50 mg PO BID 11/30/13 06/16/17 Levothyroxine Sodium 75 mcg PO DAILY 05/30/16 06/16/17 cloNIDine [Catapres] 0.1 mg ORAL QPM 10/01/16 06/16/17 Lisinopril 40 mg ORAL BID 12/17/16 06/16/17 amLODIPine [Norvasc] 10 mg PO DAILY 05/28/17 06/16/17 Acetaminophen 500 - 1,000 mg PO TID PRN 06/04/17 06/16/17 Potassium Chloride 20 meq PEG DAILY 06/04/17 06/16/17 - Allergies Allergies/Adverse Reactions: Allergies Allergy/AdvReac Type Severity Reaction Status Date / Time avocado Allergy Emesis Verified 06/16/17 17:19 - Social History Does the pt smoke?: No Smoking Status: Never smoker Does the pt drink ETOH?: No Does the pt have substance abuse?: No - Immunizations Immunizations are current?: Yes - POLST Patient has POLST: No PD ED PE NORMAL - Vitals Vital signs reviewed: Yes - General General: Alert and oriented X 3, No acute distress - HEENT HEENT: Moist mucous membranes - Neck Neck: Supple, no meningeal sign, Other (3 x 3 cm area of swelling with very minimal erythema to the anterior aspect of the neck, just above the tracheal stoma. No drainage. Tracheal stoma appears without infection.3 x 3 cm area of swelling with very minimal erythema to the anterior aspect of the neck, just above the tracheal stoma. No drainage. Tracheal stoma appears without infection.) - Cardiac Cardiac: RRR, Strong equal pulses - Respiratory Respiratory: No respiratory distress, Clear bilaterally - Derm Derm: Warm and dry - Neuro Neuro: Alert and oriented X 3 - Psych Psych: Normal mood, Normal affect Results - Vitals Vitals: Vital Signs - 24 hr 06/16/17 06/16/17 17:11 19:59 Temperature 36.5 C 36.7 C Heart Rate 60 68 Respiratory 16 21 Rate Blood Pressure 199/74 H 214/67 H O2 Saturation 100 100 Oxygen O2 Source Room air - Labs Labs: Laboratory Tests 06/16/17 06/16/17 06/16/17 18:20 18:20 18:20 WBC 8.6 RBC 4.54 Hgb 12.6 Hct 38.2 MCV 84.3 MCH 27.8 MCHC 33.0 RDW 16.8 H Plt Count 209 MPV 8.6 Neut # 6.4 Lymph # 1.4 L [place] # 0.8 Eos # 0.0 Baso # 0.1 Absolute Nucleated RBC 0.00 Nucleated RBC % 0.0 ESR 44 H Sodium 136 Potassium 3.8 Chloride 99 L Carbon Dioxide 28 Anion Gap 9.0 BUN 22 H Creatinine 0.5 Estimated GFR (MDRD) 118 Glucose 95 Calcium 9.2 Total Bilirubin 0.7 AST 37 ALT 30 Alkaline Phosphatase 75 C-Reactive Protein < 1.0 Total Protein 8.2 Albumin 4.3 Globulin 3.9 Albumin/Globulin Ratio 1.1 Lipase 35 - Rads (name of study) CT neck Radiology: Prelim report reviewed, EMP read contemporaneously, See rad report CXR Radiology: Prelim report reviewed, EMP read contemporaneously, See rad report ( NAD) PD MEDICAL DECISION MAKING - ED course Complexity details: reviewed results, re-evaluated patient, considered differential, d/w patient, d/w family, d/w marketing regional consultant ED course: 1809 - Dr. Arvizu (head and neck surgery [facility]) recommends labs, CT neck. Recontacted Dr. Arvizu after laboratory testing as well as the CT scan was performed and reviewed the findings together. Does not feel patient warrants antibiotics at this time and I feel this is reasonable. Will hold antibiotics currently. We will have her follow-up with Dr. Arvizu's office on Sunday for further evaluation and care and to see if she needs a repeat biopsy for possible recurrence of the mass. Patient and family counseled regarding signs and symptoms for which I believe and urgent re-evaluation would be necessary. Patient with good understanding of and agreement to plan and is comfortable going home at this time This document was made in part using voice recognition software. While efforts are made to proofread this document, sound alike and grammatical errors may occur. Departure - Departure Disposition: Home, Self Care Clinical Impression: Laryngeal cancer Condition: Good Instructions: ED Tumor [facility] Follow-Up: Luh Hobbs on Sunday [Other] Comments: I spoke with Dr. Luh jarrell. He wants you to call his office on Sunday for an appointment. Return if you worsen. There doesn't appear to be an infection chrystal. Discharge Date/Time: 06/16/17 20:01
[2017-06-16 18:39] LABS: BASOPHILS # (AUTO) 0.1 10^3/uL (0.0-0.1); BASOPHILS % (AUTO) 0.8 %; EOSINOPHILS % (AUTO) 0.4 %; HCT - HEMATOCRIT 38.2 % (37.0-47.0); HGB - HEMOGLOBIN 12.6 g/dL (12.0-16.0); LYMPHOCYTES # (AUTO) 1.4 10^3/uL (1.5-3.5); LYMPHOCYTES % (AUTO) 15.8 %; MEAN CORPUSCULAR HEMOGLOBIN 27.8 pg (27.0-31.0); MEAN CORPUSCULAR VOLUME 84.3 fL (81.0-99.0); MEAN PLATELET VOLUME 8.6 fL (7.9-10.8); MONOCYTES # (AUTO) 0.8 10^3/uL (0.0-1.0); MONOCYTES % (AUTO) 8.7 %; NEUTROPHILS # (AUTO) 6.4 10^3/uL (1.5-6.6); NEUTROPHILS % (AUTO) 74.3 %; RED BLOOD COUNT 4.54 10^6/uL (4.20-5.40); RED CELL DISTRIBUTION WIDTH 16.8 % (12.0-15.0); UNCORRECTED WHITE BLOOD COUNT 8.6 x10^3/uL; WHITE BLOOD COUNT 8.6 x10^3/uL (4.8-10.8)
[2017-06-16] MEDS ORDERED: IOPAMIDOL-300 100 ML VIAL IVP ONE (18:48)
[2017-06-16 18:52] LABS: ALBUMIN/GLOBULIN RATIO 1.1 (1.0-2.2); BILIRUBIN,TOTAL 0.7 mg/dL (0.2-1.0); BUN - BLOOD UREA NITROGEN 22 mg/dL (6-20); CALCIUM 9.2 mg/dL (8.5-10.3); CARBON DIOXIDE - CO2 28 mmol/L (21-32); CHLORIDE 99 mmol/L (101-111); CREATININE 0.5 mg/dL (0.4-1.0); GFR - MDRD 118 (>89); GLUCOSE 95 mg/dL (70-100); LIPASE 35 U/L (22-51); POTASSIUM 3.8 mmol/L (3.5-5.0); SODIUM 136 mmol/L (135-145); TOTAL PROTEIN 8.2 g/dL (6.7-8.2)
--- NOTE | 2017-06-16 19:19 | CT Report ---
EXAM: CT SOFT TISSUE NECK EXAM DATE: 06/16/2017 06:49 PM. HISTORY: Anterior soft tissue neck swelling, hypopharyngeal mass COMPARISONS: CT soft tissue neck 05/23/2017. TECHNIQUE: Routine soft tissue neck CT protocol. IV contrast: 100 cc Isovue-300. Reconstructions: Cor onal and sagittal. In accordance with CT protocol optimization, one or more of the following dose reduction techniques w ere utilized for this exam: automated exposure control, adjustment of mA and/or KV based on patient s ize, or use of iterative reconstructive technique. FINDINGS: Postoperative changes of laryngectomy. Increased thickness of heterogeneously enhancing soft tissue in the midline, right paracentral suprag lottic region. This tumor roughly measures 3.9 x 4.9 x 5.8 cm (previously 2.0 x 4.5 x 4.7 cm). The ma ss is comprised of heterogeneously enhancing soft tissue along its anterior and inferior margin with areas of hypodensity/necrosis posteriorly. There is focal peripherally enhancing, centrally hypodense collection to the left lobe midline, medial to the left carotid space just above the tracheostomy si te measuring 1.6 x 2.2 x 2.5 cm. This is new compared to 05/23/2017 Chronic postsurgical changes of bilateral neck dissections are again demonstrated. Fat stranding surr ounding bilateral carotid space correlates to postsurgical changes. Soft tissue posterior to the righ t carotid space demonstrates subtle enhancement and tumor extension posterior to the right carotid sp tammy cannot be completely excluded. Postsurgical tracheostomy. Atherosclerotic calcification and stenosis of the proximal left common car otid artery and subclavian artery. Atherosclerotic calcification of the aortic arch. Pulmonary artery appear unremarkable. Fibrosis demonstrated along the anterior medial left upper lobe. Rounded spiculated nodule demonstrat ed within the medial left superior segment of the left lower lobe measuring 9.8 mm (previously 7 mm), possibly metastasis versus primary bronchogenic carcinoma. Postsurgical changes of prior surgery in the axillary region with surgical clips. Visualized intracranial contents appear unremarkable. Atherosclerotic calcification of the proximal i ntracranial right vertebral artery. Parapharyngeal space and infratemporal fossa appear unremarkable. Orbits and paranasal sinuses are unremarkable. Significant degenerative changes at C5-C6 and C6-C7. Multilevel facet degenerative changes. No suspic ious lytic or sclerotic osseous lesions. IMPRESSION: 1. Increased size of heterogeneously enhancing mass lesion in the right paracentral neck superior to the laryngectomy site compared to 05/23/2017. Mass appears to surround the right carotid artery narro wing the right internal jugular vein, likely involving the right carotid space. Posterior hypoenhanci ng, potentially necrotic component appears larger when compared to 05/23/2017. Loculated peripherally enhancing centrally hypodense collection is seen to the left of the mass, medial to the left carotid space, possibly extension of necrotic material, superimposed infection/abscess considered less likel y due to lack of fat stranding/swelling, although cannot be completely excluded. 2. Enlarging spiculated nodule in the medial superior left upper lobe compared to 05/23/2017, metasta sis versus primary bronchogenic carcinoma. 3. 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 This i s stable compared to the prior study. 4. Tracheostomy with its tip at T2-T3. [facility] The above findings were discussed with Dr. Guan by Dr. Benji Hall at 19:15 hrs on 06/16/17. Referring Provider Line: [phone] SITE ID: [id number]
--- NOTE | 2017-06-16 19:41 | XRAY Preliminary Report ---
Exam: XR CHEST 2 VIEW PA/LAT IMPRESSION: 1. No evidence of acute cardiopulmonary process. 2. Stable nonspecific mild left apical pleural-parenchymal thickening. [facility] SITE ID: [id number]
--- NOTE | 2017-06-16 19:43 | XRAY Report ---
EXAM: CHEST RADIOGRAPHY EXAM DATE: 06/16/2017 07:29 PM. CLINICAL HISTORY: Cough. COMPARISON: 11/25/2016 10/01/2016. TECHNIQUE: 2 views. FINDINGS: Lungs/Pleura: Mild left apical pleural-parenchymal thickening is stable. No focal consolidation, pneu mothorax, or pleural effusion is seen. Mediastinum: Heart and mediastinal contours are unremarkable. Other: There is an apparent tracheostomy device in expected position. Surgical clips are present at t he left neck base. There is evidence of prior left breast surgery and axillary lymph node dissection. IMPRESSION: 1. No evidence of acute cardiopulmonary process. 2. Stable nonspecific mild left apical pleural-parenchymal thickening. [facility] Referring Provider Line: [phone] SITE ID: [id number]
[2017-06-16 19:59] VITALS: BP 214/67
== END 2017-06-16 20:01 | disposition home or self-care (01) ==
LOC: ED 16:56
DX: C32.9 Malignant neoplasm of larynx, unspecified (principal); Z93.0 Tracheostomy status; I10 Essential (primary) hypertension; I25.2 Old myocardial infarction; E78.00 Pure hypercholesterolemia, unspecified; E03.9 Hypothyroidism, unspecified; M19.90 Unspecified osteoarthritis, unspecified site; Z85.3 Personal history of malignant neoplasm of breast
CPT/HCPCS: 36415; 70491; 71020; 80053; 83690; 85025; 85651; 86140; 99283; 99284; Q9967

== ENCOUNTER 2017-06-19 08:50 | Outpatient (CLI) | payer MEDICARE ==
[2017-06-19] MEDS ORDERED: BARIUM SULFATE 148 GM POWDER PO ONE (09:46)
--- NOTE | 2017-06-20 09:28 | XRAY Report ---
MODIFIED BARIUM SWALLOW: 06/19/2017 COMPARISON STUDY: Modified barium swallow 01/14/2014. INDICATION: Extensive neck dissection due to carcinoma. Severe dysphagia. TOTAL FLUORO TIME: 1 minute, 27 seconds. TOTAL NUMBER OF IMAGES: 72. FINDINGS/IMPRESSION: Serial thicknesses of barium were administered orally and followed fluoroscopic ally with the Speech Pathologist in attendance. Barium was not visualized inferior to the vallecula. Swallow was not effectively initiated. There w as no aspiration or penetration. Please refer to the Speech report for further details. JOB #: [id number] EXT JOB #:[id number]
== END 2017-06-19 08:51 | disposition home or self-care (01) ==
LOC: DI 08:50
PROVIDERS: ATTEND Internal Medicine
DX: C76.0 Malignant neoplasm of head, face and neck (principal); C13.9 Malignant neoplasm of hypopharynx, unspecified
CPT/HCPCS: 74230

== ENCOUNTER 2017-06-28 18:01 | Outpatient (CLI) | payer MEDICARE ==
--- NOTE | 2017-06-28 14:08 | CONSULTATION NOTE ---
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 Initially nutritional status has improved somewhat as she is getting 6 cans and is up to 100 pounds. Of note her fistula has quit draining, does appear to be well-healed, but weight is fairly remarkable on her exam is increased swelling in the right neck area. She is receiving her first chemotherapy, she has had chemotherapy teaching with Maya Vaughan. She will be receiving carboplatin and cetuximab. Her daughter Natali is the primary caregiver, the patient tries to manage as much as possible independently. They are all quite overwhelmed, adding the complexity is Delarosa does have dementia and has very little understanding of what is going on with his , as well as needed supervision at most times. Social History - Living Situation Living arrangement: At home Living Situation: With spouse/s.o., With family Support System: Daughter Natali is primary caregiver both for her mother and father, she is quite tearful and feeling overwhelmed. They do use time together to be able to take a break, she does exhibit signs and symptoms of caregiver fatigue. This is not lost on the patient Dayana, who is quite tearful by the situation as well and feels very badly about this Medications/Allergies - Medications Home Medications: Ambulatory Orders Medication Instructions Recorded Confirmed Atenolol [Tenormin] 50 mg PO BID 11/30/13 06/28/17 Levothyroxine Sodium 75 mcg PO DAILY 05/30/16 06/28/17 cloNIDine [Catapres] 0.1 mg ORAL QPM 10/01/16 06/28/17 Lisinopril 40 mg ORAL BID 12/17/16 06/28/17 amLODIPine [Norvasc] 10 mg PO DAILY 05/28/17 06/28/17 Acetaminophen 500 - 1,000 mg PO TID PRN 06/04/17 06/28/17 Methocarbamol 500 mg PO QID PRN 06/21/17 06/28/17 Prochlorperazine Supp [Compazine 25 mg LA Q8HR PRN 06/26/17 06/28/17 Supp] Hydrocodone/Acetaminophen 5 - 10 mg PEG Q4HR PRN 06/28/17 06/28/17 [Hydrocodon-Acetamin 7.5-325/15] Nystatin 5 ml PO QID 06/28/17 06/28/17 Ondansetron [Ondansetron Odt] 4 mg SL Q6HR PRN 06/28/17 06/28/17 Ondansetron HCl [Zofran] 4 mg PO Q6H PRN #10 tablet 06/30/17 Promethazine HCl 10 - 20 ml PO Q6H PRN #300 ml 06/30/17 - Allergies Allergies/Adverse Reactions: Allergies Allergy/AdvReac Type Severity Reaction Status Date / Time avocado Allergy Emesis Verified 06/30/17 16:30 Review of Systems - Constitutional Constitutional: reports: Fatigue, Weight stable (100 per report) - Eyes Eyes: reports: Vision loss - Ears, Nose & Throat Ears, Nose & Throat: reports: Hearing loss, Dry mouth, Other (with increasing mass has not been able to swallow;) - Cardiovascular Cardiovascular: reports: Decr. exercise tolerance, Other (hypertension) - Respiratory Respiratory: reports: Cough, Sputum production, Wheezing, SOB with exertion, Other (trach) - Gastrointestinal Gastrointestinal: reports: Other (PEG tube feedings about 6 cans a day with flushes;). denies: Constipation, Nausea - Genitourinary Genitourinary: reports: Frequency - Musculoskeletal Musculoskeletal: reports: Muscle pain, Back pain, Stiffness, Limited range of motion (left hip), Muscle weakness, Assistive devices (has walker) - Integumentary Integumentary: reports: Other (fistula closed; no further drainage) - Neurological Neurological: reports: Headache (dull right sided but not responsive to apap), Other (uses electolarynx) - Psychiatric Psychiatric: reports: Depression, Anxiety - Endocrine Endocrine: reports: Hypothyroidism - Hematologic/Lymphatic Hematologic/Lymphatic: reports: Anemia - All Other Systems All Other Systems: reports: Reviewed and negative Physical Exam - Physical Exam General Appearance: positive: Mild distress, Anxious Eyes Bilateral: positive: No lid inflammation ENT: positive: Other (white patches scattered on tongue/buccal cavity; increase discomfort and dryness; does not feel at this time down throat) Neck: positive: Other (increased tumor mass effect swelling right side of neck area; trach tube slight crooked in response with some rubbing at top; having increase difficulty managing oral secretions as cannot swallow) Palliative Care - POLST Patient has POLST: No Pain: Pain worsening, Location (dull ache in right side of head; left hip DJD; has tried acetminophen without results; has used ibuprofen with some response but concern given her ongoing hypertensive issues; has tolerated opioids in past ; would like liquid form), Pattern (both hip and headache intermittent) Tiredness/Fatigue: Moderate (4-6) Drowsiness/Sedation: None Nausea: None Depression: Moderate (4-6) Anxiety: Moderate (4-6) Dyspnea: Mild (1-3) Anorexia: Weight loss (using 6 cans at this time) Sleep: Variable sleep pattern (this is attributed to husbands behaviors at night as well as her anxiety) Constipation: Intermittent constipation Feelings of wellbeing/Perceived Quality of Life: Poor, Worsening Performance Status: Patient still able to bathe independently, her ambulation is only limited by her left hip pain not deconditioning at this time. She is managing her tube feedings fairly independently with minimal assist. - Palliative Care Discussion: Both patient and daughter feeling overwhelmed by her current decline, increased and recurrent disease, and the uncertainty of the future. Patient is feeling poorly both physically and emotionally given the increased burden she is putting on her daughter, is feeling some distress and overwhelmed by the complexity of the situation. Both understand the treatment is palliative in nature, she is hoping to decrease her swallowing issues and by some time as well. Impression and Recommendations - Palliative Care Impression: This is an 81-year-old woman with hypopharyngeal cancer carcinoma with recurrent masses, metastatic disease to both her T2 and pulmonary nodules. She is initiating palliative chemotherapy, is feeling both physically and emotionally overwhelmed, her goal is hopefully to improve her quality of life as well as prolong her survival. Recommendations/Counseling Done: 1. Malnutrition. Patient is tolerating 6 cans of feeding a day, she is working with dietitian from [facility]. Reinforced the need to stay hydrated particularly in the context of her chemotherapy, reviewed signs and symptoms of dehydration including darkened urine, increased dizziness, and a feeling of thirst. 2. Oral candidiasis. I suspect this is adding to her discomfort of her mouth, did prescribe nystatin 100,000 units per male with instructions for 5 mils 4 times daily, and need for good oral care. 3. Depression, she is continued to experience depressive symptoms and feeling overwhelmed by her current situation. Counseling to normalize her current feelings of grief and loss, reactions to uncertainty, and distress with her current home situation. Will make a referral to the palliative care medical billing coder as support for both patient and daughter. 4. Constipation. Patient reports her bowels are moving every day or every other day currently no symptoms of constipation or diarrhea, though she does recognize me of change in bowel program in the context of initiating opioids as well as her chemotherapy. 5. Acute on chronic pain. Patient is experiencing some increasing headache pain, suspect related to tumor compression. Did give her description for hydrocodone acetaminophen 10 mg/325 mg per 15 ml inst to use 7.5 to 10 mls every 4 hours as needed to be able to use and titrate accordingly. Were able to verbalize back instructions. 6. Fistula. This appears to have close at this point in time. No further leaking or dressing needed. She still has pressure area above her trach, this is impacted by the increasing mass on that right side. Instructed continue to monitor and wear trachostomy tube looser if able. 7. Hypertension. They did not bring in the log of blood pressures, but reports that it is staying in the fairly high side but not alarmingly. She has long-term been on multiple hypertensive medications. 8. Hypokalemia. She has completed her potassium supplementation. She is within normal range, I suspect this was more due to malnutrition will continue to monitor. 9. Advanced care planning. Patient aware of the seriousness of her illness, is feeling somewhat overwhelmed by the quickness of her decline. She is at this point moving forward with palliative chemotherapy. She will weigh ongoing the benefits and burdens regarding this. Time Spent: 45 minutes with greater than 50% of this done in counseling for depression, pain management, and management of nutrition as well as anticipatory guidance.
== END 2017-06-28 18:02 | disposition home or self-care (01) ==
LOC: PC 18:01
PROVIDERS: ATTEND Nurse Practitioner Adult Health
DX: Z51.5 Encounter for palliative care (principal); E46 Unspecified protein-calorie malnutrition; B37.0 Candidal stomatitis; F43.21 Adjustment disorder with depressed mood; G89.29 Other chronic pain; R51 Headache; M16.12 Unilateral primary osteoarthritis, left hip; L89.899 Pressure ulcer of other site, unspecified stage; I10 Essential (primary) hypertension; C13.9 Malignant neoplasm of hypopharynx, unspecified; C78.02 Secondary malignant neoplasm of left lung; C78.01 Secondary malignant neoplasm of right lung; C79.51 Secondary malignant neoplasm of bone; F41.9 Anxiety disorder, unspecified; Z93.0 Tracheostomy status; Z93.1 Gastrostomy status
CPT/HCPCS: 99215

== ENCOUNTER 2017-07-05 13:17 | Outpatient (CLI) | payer MEDICARE ==
--- NOTE | 2017-07-05 19:28 | CONSULTATION NOTE ---
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 She has completed her first chemotherapy, she did have significant nausea and vomiting with her carboplatin M and ended up in the emergency room over the weekend. Unfortunately there was some misunderstanding, patient did not continue with her tube feedings and became dehydrated as well. I discussed both with the patient on speaker phone as well as the daughter the need to continue, using antiemetics, and strategies of small frequent feedings. I am seeing her today she is here for her day 8 of cetuximab, unfortunately she is having a reaction to the Benadryl with restless leg syndrome. She is also having increased trouble with swallowing, this results in large amounts of secretions that she has to spit out. She also had several episodes of vomiting through theThe visit, she had no nausea with this but more was a reaction in conjunction with her restless leg syndrome. She has had significant fatigue, she has used the hydrocodone elixir with some improvement of her pain, she has had some intermittent constipation. She is here with both her daughter and her who has moderate to severe dementia. There identified concerns today, is that she has had increased cough, she is with a tracheostomy. She is having trouble with her secretions and with her cough effort. She does have diminished breath sounds throughout all as well as some upper airway rhonchi. She denies fever chills that she is at high risk for pneumonia. Social History - Living Situation Living arrangement: At home Living Situation: With spouse/s.o., With family Support System: Patient tends to be somewhat independent, she is a caregiver for her demented . Natali her daughter has been trying to be caregiver to both. She is exhibiting signs and symptoms of caregiver burnout. Have offered her the palliative care social group worker at this point in time that is on hold Medications/Allergies - Medications Home Medications: Ambulatory Orders Medication Instructions Recorded Confirmed Atenolol [Tenormin] 50 mg PO BID 11/30/13 07/04/17 Levothyroxine Sodium 75 mcg PO DAILY 05/30/16 07/04/17 cloNIDine [Catapres] 0.1 mg ORAL QPM 10/01/16 07/04/17 Lisinopril 40 mg ORAL BID 12/17/16 07/04/17 amLODIPine [Norvasc] 10 mg PO DAILY 05/28/17 07/04/17 Acetaminophen 500 - 1,000 mg PO TID PRN 06/04/17 07/04/17 Methocarbamol 500 mg PO QID PRN 06/21/17 07/04/17 Prochlorperazine Supp [Compazine 25 mg OK Q8HR PRN 06/26/17 07/04/17 Supp] Hydrocodone/Acetaminophen 5 - 10 mg PEG Q4HR PRN 06/28/17 07/04/17 [Hydrocodon-Acetamin 7.5-325/15] Nystatin 5 ml PO QID 06/28/17 07/04/17 Ondansetron [Ondansetron Odt] 4 mg SL Q6HR PRN 06/28/17 07/04/17 Ondansetron HCl [Zofran] 4 mg PO Q6H PRN #10 tablet 06/30/17 07/04/17 Promethazine HCl 10 - 20 ml PO Q6H PRN #300 ml 06/30/17 07/04/17 - Allergies Allergies/Adverse Reactions: Allergies Allergy/AdvReac Type Severity Reaction Status Date / Time avocado Allergy Emesis Verified 06/30/17 16:30 Review of Systems - Constitutional Constitutional: reports: Fatigue, Weakness - Ears, Nose & Throat Ears, Nose & Throat: reports: Dry mouth (improvement with nystatin) - Cardiovascular Cardiovascular: reports: Lightheadedness, Decr. exercise tolerance - Respiratory Respiratory: reports: Cough (increased cough over last couple of days), Sputum production, SOB with exertion - Gastrointestinal Gastrointestinal: reports: Nausea, Vomiting (over weekend; has resolved; had tried compazine with side effects thought she was having a stroke), Other (Tube feedings trying to keep up with extra water and 6 cans a day) - Genitourinary Genitourinary: reports: Urgency - Musculoskeletal Musculoskeletal: reports: Limited range of motion (left hip), Other (severe "jumpy legs" with benadryl adminisitration) - Integumentary Integumentary: reports: Dryness, Other (denies rash or skin changes secondary to chemotherapy) - Neurological Neurological: reports: General weakness, Headache (has used hydrocodone for neck /headache pain a couple of times with relief), Abnormal gait (due to DJD) - Psychiatric Psychiatric: reports: Depression, Anxiety - Endocrine Endocrine: denies: Diabetes type 2 - Hematologic/Lymphatic Hematologic/Lymphatic: reports: Anemia - All Other Systems All Other Systems: reports: Reviewed and negative Physical Exam - Vital Signs Temperature: 36.9 C Respiratory Rate: 71 Blood Pressure: 162/57 - Physical Exam General Appearance: positive: Moderate distress ("spitting" actually large volumes of fluid/vomit though denies nausea with it) Eyes Bilateral: positive: Other (watery) ENT: positive: Other (candidiasis improved though still with some white patches ; reports feeling better though) Neck: positive: Trachea midline, Stiff neck, Other (swelling on right side of neck; reports not better or worse) Cardiovascular: positive: Regular rate & rhythm Respiratory: positive: Diminished throughout, Rhonchi (upper airways; trach difficulty clearing secretions; creamy in nature) Abdomen: positive: Soft Skin: positive: Pallor, Other (moist desquamation upper chest airway with increase resp. secretions) Extremities: positive: No pedal edema, Other (unable to stay still; moving restless legs) Neurologic/Psychiatric: positive: Oriented x3, Weakness, Depressed mood/affect Palliative Care - POLST Patient has POLST: No Pain: Pain unchanged, Location (right neck area and headache pain/pressure) Tiredness/Fatigue: Severe (7-10) Drowsiness/Sedation: None Nausea: None, With vomiting (had TF just before arrival; "spit' but actually large volumes/observed abdominal contrations; patient with separate trachea/ esophagus with surgical resection) Depression: Moderate (4-6) Anxiety: Moderate (4-6) Dyspnea: Mild (1-3), Comment (worsened with coughing) Sleep: Variable sleep pattern Constipation: Yes, Opoid induced, Managed ("normal" BM today) Feelings of wellbeing/Perceived Quality of Life: Fair, Worsening Performance Status: Patient is independent in her ADLs, she has been doing her own medication management and tube feedings, she is allowing Natali to provide support at least some supervision over the last few days. She tries to participate in household tasks, she feels quite guilty about being a burden on her daughter. She is able to ambulate, though this is impacted by her severe left hip osteoarthritis. I would put her actually at a PPS today of 50% Impression and Recommendations - Palliative Care Impression: This is an 81-year-old woman with hypopharyngeal cancer with metastases to her lung and bone, she has had some complications with her first round of chemotherapy, including side effects from Benadryl most likely culprit, nausea and vomiting poorly controlled, dehydration and difficulty again with malnutrition. She continues to have difficulty with swallowing and managing oral secretions will order her suction machine today. Recommendations/Counseling Done: 1. Dysphasia. Patient with mass pressing on her right upper neck area, unable to manage secretions with swallowing. She "spits them" on a regular basis into Kleenex. He had improved with treatment of her oral candidiasis, it is quite tiring for her particularly when she is feeling poorly. Contacted [employer], and prescription sent for oral suction machine with the acres section to be delivered today. 2. Pain of neoplastic origin. She has used the hydrocodone a couple times to manage a dull aching pain on the right side of her neck resulting in headache pain as well. She reports currently this is managed and only intermittent. 3. Constipation, opioid induced. She is working with the [employer]ira[employer] and senna, she is fearful of diarrhea, counseling and instruction regarding need for aggressive bowel program particularly with increased use of ondansetron. 4. Cough. Patient high risk for aspiration pneumonia, she has had a change in her secretions both in amount, though they are somewhat white and throughout frothy. Will get chest x-ray in follow-up today. 5. oral candidiasis. This has improved somewhat, on exam appears somewhat better but not resolved. Instructed to continue currently. 6. Fistula. Had been closed, does appear to have some leakage from it, appears like consistency of tube feeding that she is currently vomiting up. No signs of symptoms of infection at this time. 7. Advanced care planning. Patient in quite a bit of distress today did not revisit at this point though have wanted to talk about this as far as moving forward on documenting her wishes. Will defer to next meeting. Time Spent: Time spent 45 minutes with greater than 50% of this and coordination of care have been ordering suction machine follow-up with clinical staff at the time of visit for managing acute symptoms as well as counseling for symptom management of pain, nausea, malnutrition, and constipation.
== END 2017-07-05 13:18 | disposition home or self-care (01) ==
LOC: PC 13:17
PROVIDERS: ATTEND Nurse Practitioner Adult Health
DX: Z51.5 Encounter for palliative care (principal); R13.10 Dysphagia, unspecified; G89.3 Neoplasm related pain (acute) (chronic); K59.03 Drug induced constipation; T40.2X5D Adverse effect of other opioids, subsequent encounter; R05 Cough; B37.0 Candidal stomatitis; L98.8 Other specified disorders of the skin and subcutaneous tissue; C13.9 Malignant neoplasm of hypopharynx, unspecified; C78.00 Secondary malignant neoplasm of unspecified lung; C79.51 Secondary malignant neoplasm of bone; R11.2 Nausea with vomiting, unspecified; T45.1X5A Adverse effect of antineoplastic and immunosuppressive drugs, initial encounter; Z93.1 Gastrostomy status; G25.81 Restless legs syndrome; T45.0X5A Adverse effect of antiallergic and antiemetic drugs, initial encounter; Z79.891 Long term (current) use of opiate analgesic; Z93.0 Tracheostomy status; Z63.6 Dependent relative needing care at home; E11.9 Type 2 diabetes mellitus without complications; M16.12 Unilateral primary osteoarthritis, left hip; E46 Unspecified protein-calorie malnutrition
CPT/HCPCS: 99215

== ENCOUNTER 2017-07-05 16:07 | Outpatient (CLI) | payer MEDICARE ==
--- NOTE | 2017-07-06 10:23 | XRAY Report ---
TWO-VIEW CHEST: 07/05/2017 CLINICAL INDICATION: Cough. FINDINGS: Frontal and lateral views of the chest are compared to previous frontal view of 06/22/2017 . The cardiac silhouette is within normal limits. Right subclavian port terminates in the distal super ior vena cava. There is an 11-mm nodule at the right lung base, suspicious for pulmonary metastatic disease, previously demonstrated on CT of 05/23/2017. No focal infiltrate, effusion, or pneumothorax is present. Old, healed rib fracture and postoperative changes in the left axilla are stable. IMPRESSION: PULMONARY NODULE, COMPATIBLE WITH PULMONARY METASTATIC DISEASE, PREVIOUSLY DOCUMENTED ON CT OF 05/23/2017. NO EVIDENCE OF ACUTE CARDIOPULMONARY DISEASE. JOB #: [id number] EXT JOB #:[id number]
== END 2017-07-05 16:08 | disposition home or self-care (01) ==
LOC: DI 16:07
PROVIDERS: ATTEND Nurse Practitioner Adult Health
DX: C13.9 Malignant neoplasm of hypopharynx, unspecified (principal); R91.1 Solitary pulmonary nodule
CPT/HCPCS: 71020

== ENCOUNTER 2017-08-02 12:20 | Outpatient (CLI) | payer MEDICARE ==
--- NOTE | 2017-08-02 17:41 | CONSULTATION NOTE ---
Palliative Care Follow Up - Referral Referring Provider: Purnima RODRIGUEZ Time of Visit: [id number] Referral setting: Home (Is a taxing considerable effort for the patient to leave the home, she has significant left hip pain as well as fatigue.) Referral Reason: Hypopharyngeal Cancer - Information Sources Records reviewed: Previous records reviewed History/Review of Systems obtained from: Patient, Family (Daughter Natali present for the visit. 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 She is finishing her second cycle of chemotherapy, and has had to be put on hold related to skin toxicities. This includes cracking of her fingers and peeling, as well as severe fatigue. She has noted some softening of the tumor around her neck, some increased ability to manage and swallow her secretions, but does complain of tenseness and tension in her neck and upper back. She reports no increase in shortness of breath or difficulty with secretions, but still remain problematic. She does have a tracheostomy as a result of previous surgeries. She also has a fistula, she is hoping that it will heal, but still leaks from time to time. This is been a deterrent as far as being able to resume oral feedings. She does report her depression is better, but she is very discouraged regarding her lack of energy and fatigue. She has recently had her levothyroxine adjusted. Though she reports her blood pressures have remained "in the normal range". She is used to running higher, and is wondering if this is contributing to some of her distress. Social History - Living Situation Living arrangement: At home Living Situation: With spouse/s.o., With family Support System: Spouse has dementia, does need 24-hour supervision. He is less and less able to do things, so gets quite frustrated. She has been his primary caregiver and has only been able to participate somewhat, they do have her daughter Natali who is an excellent caregiver and overseeing both of their care. Patient still tries to be as independent as possible. Medications/Allergies - Medications Home Medications: Ambulatory Orders Medication Instructions Recorded Confirmed Atenolol [Tenormin] 50 mg PEG BID 11/30/13 08/02/17 cloNIDine [Catapres] 0.1 mg PEG QPM 10/01/16 08/02/17 Lisinopril 40 mg PEG BID 12/17/16 08/02/17 amLODIPine [Norvasc] 10 mg PO DAILY 05/28/17 08/02/17 Acetaminophen 500 - 1,000 mg PEG TID PRN 06/04/17 08/02/17 Methocarbamol 500 mg PO QID PRN 06/21/17 08/02/17 Prochlorperazine Supp [Compazine 25 mg MS Q8HR PRN 06/26/17 08/02/17 Supp] Hydrocodone/Acetaminophen 5 - 10 mg PEG Q4HR PRN 06/28/17 08/02/17 [Hydrocodon-Acetamin 7.5-325/15] Nystatin 5 ml PO QID 06/28/17 08/02/17 Ondansetron HCl [Zofran] 4 mg PO Q6H PRN #10 tablet 06/30/17 08/02/17 Promethazine HCl 10 - 20 ml PO Q6H PRN #300 ml 06/30/17 08/02/17 Levothyroxine [Synthroid] 1.5 tab PEG QDAC 07/26/17 08/02/17 Polyethylene Glycol 3350 [Miralax] 17 gm PEG DAILY PRN 08/02/17 08/02/17 Dexamethasone [Decadron] 2 mg PO DAILY 08/03/17 08/03/17 Fluconazole [Diflucan] 100 mg PO ONCE 08/03/17 08/03/17 - Allergies Allergies/Adverse Reactions: Allergies Allergy/AdvReac Type Severity Reaction Status Date / Time avocado Allergy Emesis Verified 06/30/17 16:30 Review of Systems - Constitutional Constitutional: reports: Fatigue, Weight stable (110-105), Other (has been trying to get 2000 mls a day) - Ears, Nose & Throat Ears, Nose & Throat: reports: Other (thrush; oral secretions; can swallow some; occasionally using suction) - Cardiovascular Cardiovascular: reports: Exertional dyspnea, Decr. exercise tolerance - Respiratory Respiratory: reports: Cough, Sputum production (clear; managing better) - Gastrointestinal Gastrointestinal: reports: Nausea (managing with occasional ondansetron). denies: Constipation, Reflux/heartburn - Musculoskeletal Musculoskeletal: reports: Muscle pain (upper thoracic tightness), Stiffness, Limited range of motion (left hip alters gait; painful), Muscle weakness - Integumentary Integumentary: reports: Dryness, Other (crackes in fingers; peeling hands) - Neurological Neurological: reports: Headache (feels like has hat tied around her head and under chin), Abnormal gait, Other (uses electrolarynx for communcation) - Psychiatric Psychiatric: reports: Depression (expressing feelings of sadness and anticipatory grief) - Endocrine Endocrine: reports: Hypothyroidism - Hematologic/Lymphatic Hematologic/Lymphatic: reports: Anemia (33.6), Bruising. denies: Recurrent infections - All Other Systems All Other Systems: reports: Reviewed and negative Physical Exam - Vital Signs Temperature: 96.9 C Pulse Rate: 56 Respiratory Rate: 18 O2 Saturation: 99 (ra @ rest) Blood Pressure: 122/48 - Physical Exam General Appearance: positive: Mild distress, Anxious Eyes Bilateral: positive: Normal inspection, Other (left eye droop) ENT: positive: Other (thicker plaques of candidiasis noted; has only been using nystation 1-2 times a day) Neck: positive: Lymphadenopathy (R), Lymphadenopathy (L), Other (swelling from tumor noted on right side; tenderness at back; fistula incision appears healed though reports still "leaks" at times) Cardiovascular: positive: Regular rate & rhythm, Bradycardia Respiratory: positive: Rhonchi (upper airways only; clear bases). negative: Wheezes Abdomen: positive: Soft, Nml bowel sounds, Other (PEG tube) Skin: positive: Pallor, Bruising Extremities: positive: No pedal edema Neurologic/Psychiatric: positive: Oriented x3, Depressed mood/affect Palliative Care - POLST Patient has POLST: Yes POLST Status: DNR, Limited Interventions Pain: Pain worsening, Location (neck and left hip; only takes occasional apap and/or methocarbonal. Hydrocodone available but has not felt that sever.) Tiredness/Fatigue: Severe (7-10) (notes worse in AM on awakening; tolerates activity poorly for a few a hours then improves through day) Drowsiness/Sedation: None Nausea: Mild (1-3) (intermittent with chemotherapy; much improved) Depression: Mild (1-3) Anxiety: Mild (1-3) Dyspnea: Moderate (4-6) (with coughing) Sleep: Variable sleep pattern (dependent on husbands sleep patterns) Constipation: Yes, Managed Feelings of wellbeing/Perceived Quality of Life: Fair, Worsening Performance Status: Patient reports poor activity tolerance is able to ambulate but has left hip pain. With decreased activity pain does increase. She is feeling post week in the morning. She is able to do her shower independently but does take quite a bit of energy. - Palliative Care Discussion: Patient quite discouraged that she is feeling so weak, was hoping to have improved energy and quality of life particularly giving a break from her chemotherapy. She did have a nice Thanksgiving, is looking forward to the holidays with her family. Does express distress about putting the burden on her daughter Natali. Counseling to normalize her feelings of grief and loss. Patient does have her SUMMER ST in place with DNAR and limited interventions Results - Lab Results Lab results reviewed: Yes Lab and Imaging Results: k 4.3; na 135; hct 33.6; wbc 8.9 from 08/01 labs Impression and Recommendations - Palliative Care Impression: This is a nirali 81-year-old woman with hypopharyngeal cancer with metastases to the lung and bone. She is having increased symptom burden, most distressful is her fatigue. Patient experiencing side effects of her chemotherapy, is currently on hold.Patient presents is quite tearful and discouraged today. Recommendations/Counseling Done: 1. Fatigue. This is multifactorial in origin, including recent change for her hypothyroidism, side effects of chemotherapy, and anemia. Counseling regarding multiple options, did decide in the end to initiate dexamethasone 2 mg twice daily for 3 days and then 2 mg ongoing. Counseled this is just a short-term intervention that may help her over this hump. We also discussed treating her depression, she would like to hold off at this point in time. Hopefully this will help elevate her mood as well as improve her feelings of fatigue. 2. Dysphagia. Patient with mass pressing on right upper neck area, still continues to have difficulty managing secretions, this is able to swallow some. Her oral candidiasis is worsened again, which I suspect this adds to this distress of this. She does have the oral suction machine, but has not needed it. 3. Pain of neoplastic origin. Patient has not needed to use further hydrocodone for right neck or headache pain though does acknowledge it is uncomfortable at times. This continues to improve somewhat though she does have increased pain and tightness across her neck. Did discuss just trying some heat in this area, she does not like to take medications. She does use Tylenol for her severe DJD of her left hip, this does impact her ambulation. 4. Oral candidiasis. This is now worsened, will have her take Diflucan 100 mg 1 and continue the nystatin up to 4 times a day. Will have her do weekly 4 weeks see if this will improve. Am concerned not only is it oral but may also be pharyngeal as well. 5. Cough. Her secretions are clear, no fever or chills, breath sounds are clear though is at high risk for infection given her immunocompromised state. Counseling reviewed with daughter and patient for signs and symptoms to notify PCP or myself. 6. Hypertension. Patient's blood pressures are actually within normal range, she reports she tends to feel better with higher numbers. She has not been tracking though on a regular basis. Did leave a message for her PCP Purnima per her, will have patient take blood pressures on a regular basis 2 times a day to get a sense of trans-, would recommend decreasing lisinopril from 40 mg twice daily to 20 mg twice daily if patient continues to feel poorly and blood pressure remains on the lower side. #7 is again alteration secondary to chemotherapy side effects. Patient was slits in her hand, she is using appropriate ointment, reviewed care and instructions regarding this. 7. Depression. Patient is tearful, feeling overwhelmed, fatigue is impacting her quality of life as well. Counseling regarding normalizing her feelings of grief and loss, her distress of increased dependence. Did counseling services director weigh benefits and burdens of treating depression, would like to wait yet. 8. Advanced care planning SUMMER ST in place, patient does understand the seriousness of her illness, is hoping to get both quantity and quality of life through her treatment regimens. She does not though want to experience recurrent hospitalizations or prolonged suffering if she is experiencing a end- of-life event. Time Spent: 45 minutes with greater than 50% of this done in counseling and coordination of care regarding management of fatigue, oral candidiasis, underlying pain and depression and anticipatory guidance
== END 2017-08-02 12:21 | disposition home or self-care (01) ==
LOC: PC 12:20
PROVIDERS: ATTEND Nurse Practitioner Adult Health
DX: Z51.5 Encounter for palliative care (principal); R53.83 Other fatigue; T45.1X5D Adverse effect of antineoplastic and immunosuppressive drugs, subsequent encounter; E03.9 Hypothyroidism, unspecified; D64.9 Anemia, unspecified; R13.19 Other dysphagia; G89.3 Neoplasm related pain (acute) (chronic); C13.9 Malignant neoplasm of hypopharynx, unspecified; C78.00 Secondary malignant neoplasm of unspecified lung; C79.51 Secondary malignant neoplasm of bone; M16.12 Unilateral primary osteoarthritis, left hip; B37.0 Candidal stomatitis; R05 Cough; I10 Essential (primary) hypertension; F32.9 Major depressive disorder, single episode, unspecified; R23.8 Other skin changes; Z93.1 Gastrostomy status; Z66 Do not resuscitate; Z93.0 Tracheostomy status
CPT/HCPCS: 99349

== ENCOUNTER 2017-09-01 16:25 | Emergency (ER) | payer MEDICARE ==
--- NOTE | 2017-09-01 17:19 | ED Physician Documentation ---
History of Present Illness - Stated complaint Stated Complaint: NECK PX - Chief complaint Chief Complaint: General - History obtained from History obtained from: Patient, Family - History of Present Illness Timing: Other (This is a nirali 81-year-old woman with recurrent hypopharyngeal cancer with metastases and neck pain from same. Her oncologist prescribed her oxycodone which is making her nauseous and she requests a substitution.) Review of Systems Constitutional: denies: Fever, Chills Cardiac: denies: Chest pain / pressure, Palpitations Respiratory: denies: Dyspnea, Cough PD PAST MEDICAL HISTORY - Past Medical History Cardiovascular: Hypertension, High cholesterol, PR Respiratory: Other Neuro: None, Other Endocrine/Autoimmune: HyPOthyroidism GI: Chronic constipation, Diverticulitis JOB COMPOSITOR: Breast cancer : None HEENT: Other Psych: Depression Musculoskeletal: Osteoarthritis, Fatigue, Other Derm: Other - Past Surgical History Past Surgical History: Yes General: Cholecystectomy, Other Ortho: Other /JOB COMPOSITOR: Other Cardiovascular: Coronary stent HEENT: Tonsil/Adenoidectomy, Other Derm: Skin grafts - Present Medications Home Medications: Ambulatory Orders Medication Instructions Recorded Confirmed Atenolol [Tenormin] 50 mg PEG BID 11/30/13 08/29/17 cloNIDine [Catapres] 0.1 mg PEG QPM 10/01/16 08/29/17 Lisinopril 40 mg PEG BID 12/17/16 08/29/17 amLODIPine [Norvasc] 10 mg PO DAILY 05/28/17 08/29/17 Acetaminophen 500 - 1,000 mg PEG TID PRN 06/04/17 08/29/17 Methocarbamol 500 mg PO QID PRN 06/21/17 08/29/17 Prochlorperazine Supp [Compazine [address] Q8HR PRN 06/26/17 08/29/17 Supp] Hydrocodone/Acetaminophen 5 - 10 mg PEG Q4HR PRN 06/28/17 08/29/17 [Hydrocodon-Acetamin 7.5-325/15] Nystatin 5 ml PO QID 06/28/17 08/29/17 Ondansetron HCl [Zofran] 4 mg PO Q6H PRN #10 tablet 06/30/17 08/29/17 Promethazine HCl 10 - 20 ml PO Q6H PRN #300 ml 06/30/17 08/29/17 Levothyroxine [Synthroid] 1.5 tab PEG QDAC 07/26/17 08/29/17 Polyethylene Glycol 3350 [Miralax] 17 gm PEG DAILY PRN 08/02/17 08/29/17 Dexamethasone [Decadron] 2 mg PO DAILY 08/03/17 08/29/17 Fluconazole [Diflucan] 100 mg PO ONCE 08/03/17 08/29/17 Dexamethasone 1 mg PO DAILY 08/08/17 08/29/17 Fluconazole 2 tab PO DAILY 08/08/17 08/29/17 Atorvastatin [Lipitor] 1 tab PO DAILY 08/29/17 08/29/17 oxyCODONE [Roxicodone] 5 mg PO Q4HR PRN 08/29/17 08/29/17 fentaNYL [Fentanyl 25mcg patch] 1 each TD Q3D #3 patch.td72 09/01/17 - Allergies Allergies/Adverse Reactions: Allergies Allergy/AdvReac Type Severity Reaction Status Date / Time avocado Allergy Emesis Verified 09/01/17 16:32 - Social History Does the pt smoke?: No Smoking Status: Never smoker Does the pt drink ETOH?: No Does the pt have substance abuse?: No - Immunizations Immunizations are current?: Yes - POLST Patient has POLST: Yes PD ED PE NORMAL - Vitals Vital signs reviewed: Yes - General General: Alert and oriented X 3, No acute distress - HEENT HEENT: Other (Uses a vocal cord box to talk, she has a tracheostomy in place, there is a firm mass on the right side of the neck that is mildly tender.) - Psych Psych: Normal mood, Normal affect Results - Vitals Vitals: Vital Signs - 24 hr 09/01/17 16:27 Temperature 36.3 C L Heart Rate 80 Respiratory 22 Rate Blood Pressure 156/58 H O2 Saturation 94 Oxygen O2 Source Room air PD MEDICAL DECISION MAKING - ED course ED course: She needs something different for pain that will make her nauseous. She is already on Zofran. I wanted to give her a fentanyl patch. I tried but failed to get a hold of the palliative care nurse practitioner, I did leave her message. We will start her on fentanyl and she can return if worse. Departure - Departure Disposition: 01 Home, Self Care Clinical Impression: Laryngeal cancer Condition: Good Record reviewed to determine appropriate education?: Yes Prescriptions: fentaNYL [Fentanyl 25mcg patch] 1 each TD Q3D #3 patch.[id number] Comments: If you are having troubles you can call me tonight or tomorrow afternoon at . Return if worse. Hopefully Rosy will call you and see how you are doing as well. Your blood pressure was elevated today on check into the emergency department. This does not mean that you have hypertension, it is a common phenomenon to come to the emergency department and have elevated blood pressure. I recommend that you see your primary care physician within the week to have it rechecked when you are feeling better.
[2017-09-01] MEDS ORDERED: fentaNYL 25 MCG PATCH TOP STA (18:18)
[2017-09-01 19:03] VITALS: BP 150/60
== END 2017-09-01 19:03 | disposition home or self-care (01) ==
LOC: ED 16:25
DX: C32.9 Malignant neoplasm of larynx, unspecified (principal); C79.9 Secondary malignant neoplasm of unspecified site; R11.2 Nausea with vomiting, unspecified; T45.1X5A Adverse effect of antineoplastic and immunosuppressive drugs, initial encounter; C50.919 Malignant neoplasm of unspecified site of unspecified female breast; I25.2 Old myocardial infarction; I10 Essential (primary) hypertension; E78.00 Pure hypercholesterolemia, unspecified; E03.9 Hypothyroidism, unspecified; Z93.0 Tracheostomy status; Z95.5 Presence of coronary angioplasty implant and graft; Z93.1 Gastrostomy status
CPT/HCPCS: 96372; 99283; A9270

== ENCOUNTER 2017-09-01 21:38 | Emergency (ER) | payer MEDICARE ==
[2017-09-01] MEDS ORDERED: PROMETHAZINE 25 MG/1 ML VIAL IM STA (22:10)
[2017-09-01] MEDS ORDERED: ACETAMINOPHEN 160 MG/5 ML SUSP UDC PO STA (23:11)
[2017-09-01] MEDS ORDERED: LIDOCAINE PATCH 5% TOP STA (23:12)
--- NOTE | 2017-09-01 23:48 | ED Physician Documentation ---
History of Present Illness - Stated complaint Stated Complaint: VOMITING - Chief complaint Chief Complaint: Abd Pain - History obtained from History obtained from: Patient, Family - History of Present Illness Timing: Today - Additonal information Additional information: Patient is an 81 year old female with a history of throat ca who is presenting to the emergency department for pain and vomiting. Patient has tried mulitple opiods and most of them make her vomit. patient and daughter report that the zofran doesn't seem to help. patient was seen in the emergency department earlier today and a fentanyl patch was placed on the patient. this evening patient's vomiting became worse so the daughter brought the patient in for evaluation. Review of Systems Constitutional: denies: Fever, Chills Eyes: denies: Decreased vision Ears: denies: Ear pain, Drainage/discharge Nose: denies: Congestion Cardiac: denies: Chest pain / pressure, Palpitations Respiratory: reports: Cough. denies: Wheezing GI: reports: Nausea, Vomiting. denies: Constipation, Diarrhea : reports: Reviewed and negative Skin: reports: Rash, Lesions Musculoskeletal: reports: Neck pain Neurologic: reports: Generalized weakness. denies: Focal weakness, Numbness Immunocompromised: reports: Immunocompromised PD PAST MEDICAL HISTORY - Past Medical History Cardiovascular: Hypertension, High cholesterol, [place] Respiratory: Other Neuro: Other Endocrine/Autoimmune: HyPOthyroidism GI: Chronic constipation, Diverticulitis [employer] C[employer] FEEDER: Breast cancer : None HEENT: Other Psych: Depression Musculoskeletal: Osteoarthritis, Fatigue, Other Derm: Other Other Past Medical History: neck tumor. tongue CA, Throat CA, largnectomy - Past Surgical History Past Surgical History: Yes General: Cholecystectomy, Other Ortho: Other /[employer]EDER: Other Cardiovascular: Coronary stent HEENT: Tonsil/Adenoidectomy, Other Derm: Skin grafts - Present Medications Home Medications: Ambulatory Orders Medication Instructions Recorded Confirmed Atenolol [Tenormin] 50 mg PEG BID 11/30/13 08/29/17 cloNIDine [Catapres] 0.1 mg PEG QPM 10/01/16 08/29/17 Lisinopril 40 mg PEG BID 12/17/16 08/29/17 amLODIPine [Norvasc] 10 mg PO DAILY 05/28/17 08/29/17 Acetaminophen 500 - 1,000 mg PEG TID PRN 06/04/17 08/29/17 Methocarbamol 500 mg PO QID PRN 06/21/17 08/29/17 Prochlorperazine Supp [Compazine 25 mg ND Q8HR PRN 06/26/17 08/29/17 Supp] Hydrocodone/Acetaminophen 5 - 10 mg PEG Q4HR PRN 06/28/17 08/29/17 [Hydrocodon-Acetamin 7.5-325/15] Nystatin 5 ml PO QID 06/28/17 08/29/17 Ondansetron HCl [Zofran] 4 mg PO Q6H PRN #10 tablet 06/30/17 08/29/17 Promethazine HCl 10 - 20 ml PO Q6H PRN #300 ml 06/30/17 08/29/17 Levothyroxine [Synthroid] 1.5 tab PEG QDAC 07/26/17 08/29/17 Polyethylene Glycol 3350 [Miralax] 17 gm PEG DAILY PRN 08/02/17 08/29/17 Dexamethasone [Decadron] 2 mg PO DAILY 08/03/17 08/29/17 Fluconazole [Diflucan] 100 mg PO ONCE 08/03/17 08/29/17 Dexamethasone 1 mg PO DAILY 08/08/17 08/29/17 Fluconazole 2 tab PO DAILY 08/08/17 08/29/17 Atorvastatin [Lipitor] 1 tab PO DAILY 08/29/17 08/29/17 oxyCODONE [Roxicodone] 5 mg PO Q4HR PRN 08/29/17 08/29/17 Lidocaine Patch 5% [Lidoderm Patch] 1 each TOP DAILY #14 patch 09/01/17 fentaNYL [Fentanyl 25mcg patch] 1 each TD Q3D #3 patch.td72 09/01/17 - Allergies Allergies/Adverse Reactions: Allergies Allergy/AdvReac Type Severity Reaction Status Date / Time avocado Allergy Emesis Verified 09/01/17 16:32 - Social History Does the pt smoke?: No Smoking Status: Never smoker Does the pt drink ETOH?: No Does the pt have substance abuse?: No - Immunizations Immunizations are current?: Yes - POLST Patient has POLST: Yes PD ED PE NORMAL - Vitals Vital signs reviewed: Yes - General General: Alert and oriented X 3 - Neck Neck: Other (right sided neck mass) PD ED PE EXPANDED - General General: Alert, Other (actively vomiting) - Neck Neck: Other (trach) - Cardiac Cardiac: Tachy - Respiratory Respiratory: Rhonchi - Abdomen Abdomen: Surgical scars, Other (PEG tube in place) Results - Vitals Vitals: Vital Signs - 24 hr 09/01/17 09/01/17 21:44 23:55 Temperature 35.9 C L 36.8 C Heart Rate 123 H 88 Respiratory 20 20 Rate Blood Pressure 144/68 H 187/63 H O2 Saturation 93 100 Oxygen O2 Source Room air PD MEDICAL DECISION MAKING - ED course Complexity details: reviewed old records, reviewed results, re-evaluated patient , considered differential, d/w patient, d/w family ED course: Patient was seen and examined at bedside. Patient's fentanyl patch was removed. Patient was treated with IM phenagren. Patient had no vomiting for about an hour. Patient was treated with tylenol and a lidoderm patch was placed on her neck. Patient was still nauseated but wanted to go home. Patient was discharge in stable condition. Departure - Departure Disposition: Home, Self Care Clinical Impression: Chemotherapy induced nausea and vomiting Condition: Good Instructions: ED Nausea Vomiting Follow-Up: regine,care provider [Other] - Within 3 Days Prescriptions: Lidocaine Patch 5% [Lidoderm Patch] 1 each TOP DAILY #14 patch Discharge Date/Time: 09/01/17 23:55
[2017-09-01 23:56] VITALS: BP 187/63
== END 2017-09-01 23:55 | disposition home or self-care (01) ==
LOC: ED 21:38
DX: R11.2 Nausea with vomiting, unspecified (principal); T45.1X5A Adverse effect of antineoplastic and immunosuppressive drugs, initial encounter; C50.919 Malignant neoplasm of unspecified site of unspecified female breast; I10 Essential (primary) hypertension; E78.00 Pure hypercholesterolemia, unspecified; I25.2 Old myocardial infarction; E03.9 Hypothyroidism, unspecified; Z93.1 Gastrostomy status; Z95.5 Presence of coronary angioplasty implant and graft

== ENCOUNTER 2017-09-03 16:15 | Outpatient (CLI) | payer MEDICARE ==
--- NOTE | 2017-09-03 18:39 | CONSULTATION NOTE ---
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 She has had increasing pain and discomfort in the area of her right neck where the mass is. Of note on her most recent CT scan though the dominant mass has not changed significantly in size a had increased at some level. She also is complaining of pain up in her upper neck area as well as fairly severe in her right shoulder. She had been prescribed some oxycodone by Dr. Robledo, ibuprofen was not managing this, as well as is causing her some stomach distress and some increased signs and symptoms of bleeding with her bronchial secretions. She started the oxycodone unfortunately she had severe nausea and vomiting and ended up in the ED over the weekend. In the context of this they put her on a fentanyl patch and unfortunately as the patch was absorbing within 2 3 hours she was back into the ED as well. Today she is using acetaminophen 650 mg 3 times daily as well as a topical lidocaine patch to her neck area in the back. She feels is adequately controlled though is rightfully distressed about if she does have more pain what is she going to do with her intolerance to pain medication. She is also having more difficulty with her oral secretions, she is using her suction more. She is unable to swallow any of these and these are quite problematic. She has also had some increased bronchial secretions and more difficulty coughing and clearing these as well. These are slightly blood tinged which has been for about 2 or 3 days. She denies any flu, chills, fever. No increased shortness of breath. She is just feeling pretty run out from her distress over the weekend with the ED. Currently patient is scheduled to start K to do next week. She still has some residual splitting of her fingers from her last chemotherapy. She continues to complain of severe fatigue. But is still managing to ambulate around the house , and attend to her ADLs, and manage her own tube feedings. Social History - Living Situation Living arrangement: At home Living Situation: With spouse/s.o., With family Support System: Daughter Natali and provides transportation, as well as oversight and care for patient's who has advanced Alzheimer's. She assists her mother as needed with medication management, and ADLs.They have recently made connections with home watch him to be able to provide some respite for the daughter. Medications/Allergies - Medications Home Medications: Ambulatory Orders Medication Instructions Recorded Confirmed Atenolol [Tenormin] 50 mg PEG BID 11/30/13 09/03/17 cloNIDine [Catapres] 0.1 mg PEG QPM 10/01/16 09/03/17 Lisinopril 40 mg PEG BID 12/17/16 09/03/17 amLODIPine [Norvasc] 10 mg PO DAILY 05/28/17 09/03/17 Acetaminophen 500 - 1,000 mg PEG TID PRN 06/04/17 09/03/17 Methocarbamol 500 mg PO QID PRN 06/21/17 09/03/17 Prochlorperazine Supp [Compazine 12.5 - [address] Q8HR PRN 06/26/17 09/03/17 Supp] Nystatin 5 ml PO BID 06/28/17 09/03/17 Ondansetron HCl [Zofran] 4 mg PO Q6H PRN #10 tablet 06/30/17 09/03/17 Levothyroxine [Synthroid] 1.5 tab PEG QDAC 07/26/17 09/03/17 Polyethylene Glycol 3350 [Miralax] 17 gm PEG DAILY PRN 08/02/17 09/03/17 Atorvastatin [Lipitor] 1 tab PO DAILY 08/29/17 09/03/17 Lidocaine Patch 5% [Lidoderm Patch] 1 each TOP DAILY #14 patch 09/01/17 09/03/17 - Allergies Allergies/Adverse Reactions: Allergies Allergy/AdvReac Type Severity Reaction Status Date / Time avocado Allergy Emesis Verified 09/01/17 16:32 fentanyl AdvReac Nausea Verified 09/03/17 18:40 oxycodone AdvReac Nausea Verified 09/03/17 18:40 Review of Systems - Constitutional Constitutional: reports: Fatigue, Other (weight variable 106;Tolerating her tube feeding at 6 cans trying to keep the total fluid greater than 2000 mils, she does get thirsty and will increase her water intake. If she is too much pressure it "bubbles back up" and causes more difficulty with secretions.) - Ears, Nose & Throat Ears, Nose & Throat: reports: Mouth lesions (improved) - Cardiovascular Cardiovascular: reports: Decr. 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 with increase tumor pressure) ENT: positive: No signs of dehydration, Oral lesions (canidiasis well controlled currently with nystatin BID; just few white patches limited to tongue ) Neck: positive: Stiff neck (poor range of motion), Other (swelling right side of neck appears larger than last visit) Cardiovascular: positive: Regular rate & rhythm Respiratory: positive: Diminished in bases, Rhonchi (upper airways anteriorly; clear with coughing) Abdomen: positive: Soft, Nml bowel sounds Skin: positive: Pallor, Other (fistula site with small crevice) Extremities: positive: No pedal edema Neurologic/Psychiatric: positive: Oriented x3, Depressed mood/affect Palliative Care - POLST Patient has POLST: Yes POLST Status: DNR, Selective Treatment Pain: Pain worsening, Location (back of neck right side; right neck "full"; left hip;Using methocarbamol 500 mg TID, with APAP 650 mg with lidocaine patch on back of neck.) Tiredness/Fatigue: Severe (7-10) Drowsiness/Sedation: None Nausea: None (did have vomiting with opioids over weekend) Depression: Mild (1-3) Anxiety: Mild (1-3) Dyspnea: Mild (1-3) Sleep: Variable sleep pattern Constipation: Yes, Opoid induced, Managed Feelings of wellbeing/Perceived Quality of Life: Fair, Acceptable, Worsening Performance Status: Patient still managing bathing with just minor assist from daughter, is doing her on tube feedings and medications. She is able to ambulate short distances in the home. She does feel quite fatigued, and worries about getting out particular around management of her secretions. - Palliative Care Discussion: She is very discouraged over the weekend, she is feeling better now that her pain is under control. She is worried about worsening pain and what her options are. We did discuss in the future patient would be a good candidate for methadone, the side effects particularly in opioid intolerant patients are better, as well as could initiate some gabapentin. This did relieve her concerns somewhat as she is worried about how her is going to go particularly with difficulty with secretions, her airway, and now with pain. She is somewhat discouraged, though is glad that there is further option as far as treatment. She wishes she felt better, she does tend to isolate herself because of management of her increasing secretions.She dislikes being a burden on her daughter. Results - Lab Results Lab results reviewed: Yes Lab and Imaging Results: Recent chest CT with contrast does show regression of some pulmonary nodules, but there is a new 4 mm nodule in the right middle lobe. CT of her neck original mass 5.3 x 4.6 x 3.8 cm now measuring 5.2 x 5.2 x 3.6 cm Impression and Recommendations - Palliative Care Impression: This is an 81-year-old woman who unfortunately now has proven to be somewhat opioid intolerant, she does have pain of neoplastic origin and increasing difficulty with management of secretions. She is still receiving active palliative chemotherapy, but does present with fairly high symptom burden of fatigue, pain, depression, and dyspnea. Patient's goals continue to focus on extending quantity of life as long as quality of life is acceptable. Recommendations/Counseling Done: Pain of neoplastic origin. Patient describes her pain as a dull ache in her right neck and radiating across her right shoulder and fairly intense in her right shoulder joint. She has gotten some relief with the lidocaine on the back of her neck so she is in faithfully doing 12 hours on and 12 hours off. I did instruct patient can leave it on for longer periods of time up to 24 hours so would recommend off a couple hours to give her skin a break. Also recommended she try cutting the patch and putting part of it on her right shoulder discomfort. Patient had been taking ibuprofen about 1200 mg and was asked not to do that anymore secondary to concern about bleeding. Patient's methocarbamol 500 mg 3 times daily does help with some of the stiffness. This does appear to get exacerbated with sleeping in her bed. She does have a wedge. I suspect between managing her secretions and her tumor burden she would do better in a hospital bed, she declined this at this point in time encouraged to try perhaps sleeping in the recliner. She is using acetaminophen 650 mg 3 times daily as well. We did counseling regarding future medications that are options given her opioid intolerance. This was of quite relieved to her and her family. Patient declined to start methadone at this point in time, but would make that the next step in starting with methadone 2.5 mg daily and increase every 3-4 days. 2. Secretion management secondary to dysphagia. She is using her Ang now, this is better managing as well as removing the secretions does help with the fistula drainage. She has noted though she is needing some more difficulty with her trach and secretions. They are somewhat slightly thickened and blood- tinged today. Call to [employer] to get trach supplies for suctioning. 2 also have respiratory therapist come out and do training with patient and family. Patient is at high risk for aspiration pneumonia, am concerned about her increasing secretions and difficulty managing them. 3. Fatigue this is multifactorial in origin. Patient does appear to be getting adequate food and fluids at this point in time with no further weight loss. Her blood pressure is increased back to her normal high range, she would like to be able to participate more in activities that bring her georgie and allow her to be with her family. She is hoping to see her granddaughter malik on Sunday. 4. Caregiver fatigue. Natali continues to support both her parents, she does have friends thatFeels are supportive. They have initiated hiring some she has some home watch caregiver group to give her respite, and also so she and her mom can go out. I continue to flush out a schedule that can be supportive for them both. 5. Advanced care planning. Patient to initiate new palliative chemotherapy, he does remain at high risk for pneumonia and sequela from her progressing tumor growth. Counseling regarding depression and normalizing her feelings of round grief and loss. Will continue to provide anticipatory guidance Time Spent: 85 minutes with greater than 50% of this done in counseling regarding management of pain, depression, secretions as well as coordination of care follow-up with [employer] regarding trach supplies and training with RT.
== END 2017-09-03 16:16 | disposition home or self-care (01) ==
LOC: PC 16:15
PROVIDERS: ATTEND Nurse Practitioner Adult Health
DX: Z51.5 Encounter for palliative care (principal); G89.3 Neoplasm related pain (acute) (chronic); C13.9 Malignant neoplasm of hypopharynx, unspecified; C78.00 Secondary malignant neoplasm of unspecified lung; C79.51 Secondary malignant neoplasm of bone; B37.0 Candidal stomatitis; Z66 Do not resuscitate; T40.2X5A Adverse effect of other opioids, initial encounter; Z79.1 Long term (current) use of non-steroidal anti-inflammatories (NSAID); R13.10 Dysphagia, unspecified; J95.04 Tracheo-esophageal fistula following tracheostomy; R53.83 Other fatigue
CPT/HCPCS: 99349

== ENCOUNTER 2017-09-20 18:51 | Outpatient (CLI) | payer MEDICARE ==
--- NOTE | 2017-09-20 19:13 | CONSULTATION NOTE ---
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 She does have a dominant mass in her right side of her neck that does appear to be causing more pain and swelling. We have been titrating her gabapentin with some relief, but she is feeling overall somewhat discouraged. She is experiencing some pressure on her trach/laryngectomy site, the bleeding has improved somewhat, she does have intermittent reflux that causes increased coughing, that then drains out her fistula and down into her stoma. She remains at high risk for pneumonia. She denies any chills fever or increased shortness of breath at this point in time. But is concerned over all her continued poor quality of life Social History - Living Situation Living arrangement: At home Living Situation: With spouse/s.o. (Spouse has advanced Alzheimer's, this is been both stressful on the daughter and the patient. He does appear to understand that she is not well, recognizes her most days. Is concerned about long-term care planning for him as well.), With family (Daughter Natali is caring for both patient and her , does have some caregiver fatigue) Medications/Allergies - Medications Home Medications: Ambulatory Orders Medication Instructions Recorded Confirmed Atenolol [Tenormin] 50 mg PEG BID 11/30/13 09/20/17 cloNIDine [Catapres] 0.5 mg PEG QPM 10/01/16 09/20/17 Lisinopril 40 mg PEG BID 12/17/16 09/20/17 amLODIPine [Norvasc] 10 mg PO DAILY 05/28/17 09/20/17 Acetaminophen 500 - 1,000 mg PEG TID PRN 06/04/17 09/20/17 Methocarbamol 500 mg PO QID PRN 06/21/17 09/20/17 Prochlorperazine Supp [Compazine 12.5 - 25 mg [place] Q8HR PRN 06/26/17 09/20/17 Supp] Nystatin 5 ml PO QID 06/28/17 09/20/17 Ondansetron HCl [Zofran] 4 mg PO Q6H PRN #10 tablet 06/30/17 09/20/17 Levothyroxine [Synthroid] 150 mcg PEG QDAC 07/26/17 09/20/17 Polyethylene Glycol 3350 [Miralax] 17 gm PEG DAILY PRN 08/02/17 09/20/17 Lidocaine Patch 5% [Lidoderm Patch] 1 each TOP DAILY #14 patch 09/01/17 09/20/17 Gabapentin 200 mg PEG .0800;1400;1800 09/20/17 09/20/17 Gabapentin 300 mg PEG ACHS 09/20/17 09/20/17 Omeprazole [PriLOSEC] 20 mg PEG BID 09/20/17 09/20/17 - Allergies Allergies/Adverse Reactions: Allergies Allergy/AdvReac Type Severity Reaction Status Date / Time avocado Allergy Emesis Verified 09/01/17 16:32 fentanyl AdvReac Nausea Verified 09/03/17 18:40 oxycodone AdvReac Nausea Verified 09/03/17 18:40 Review of Systems - Constitutional Constitutional: reports: Fatigue, Weakness, Weight stable (105; using fibersource-causing too much stooling and cramping; 6 cans day with 400 ml water ) - Eyes Eyes: reports: Vision loss - Ears, Nose & Throat Ears, Nose & Throat: reports: Hearing loss, Dry mouth - Cardiovascular Cardiovascular: reports: Palpitations (this am), Decr. exercise tolerance - Respiratory Respiratory: reports: Cough, SOB at rest, SOB with exertion - Gastrointestinal Gastrointestinal: reports: Diarrhea, Nausea, Bloating. denies: Reflux/heartburn - Genitourinary Genitourinary: reports: Incontinence - Musculoskeletal Musculoskeletal: reports: Stiffness (neck and upper back), Limited range of motion (bilateral shoulders), Muscle weakness - Neurological Neurological: reports: General weakness - Psychiatric Psychiatric: reports: Depression - Endocrine Endocrine: reports: Hypothyroidism - Hematologic/Lymphatic Hematologic/Lymphatic: reports: Anemia. denies: Recurrent infections - All Other Systems All Other Systems: reports: Reviewed and negative Physical Exam - Vital Signs Temperature: 98.6 C Pulse Rate: 86 Respiratory Rate: 18 O2 Saturation: 95 (ra @ rest) Blood Pressure: 122/62 - Physical Exam General Appearance: positive: Mild distress, Anxious Eyes Bilateral: positive: No scleral icterus, Other (right eye ptosis worsening) ENT: positive: Oral lesions (white coating on tongue; down in to pharyngeal area ) Neck: positive: Tracheal deviation (tracheostomy tube with deviation to left; some bleeding noted with cough;), Other (increase swelling right side of neck; skin tag at fistula formation;). negative: Trachea midline Cardiovascular: positive: Regular rate & rhythm Respiratory: positive: Rhonchi (scattered through out; clear with coughing) Abdomen: positive: Nml bowel sounds, Tenderness Skin: positive: Pallor, Other (moist around exit site of trachea secondary to secretions; fistula still leaking at times) Extremities: positive: No pedal edema, Other (left hip severe DJD) Neurologic/Psychiatric: positive: Oriented x3, Weakness, Depressed mood/affect, Flat affect Palliative Care - POLST Patient has POLST: Yes POLST Status: DNR, Selective Treatment Pain: Pain worsening Tiredness/Fatigue: Severe (7-10) Drowsiness/Sedation: Moderate (4-6) Nausea: Mild (1-3) (using ondansetron) Depression: Moderate (4-6) Anxiety: Moderate (4-6) Dyspnea: Mild (1-3) Anorexia: Moderate (4-6) Sleep: Variable sleep pattern Constipation: No Feelings of wellbeing/Perceived Quality of Life: Poor, Worsening Performance Status: Patient spending more time sitting in recliner, does ambulate around the house, daughter is helping her more with smaller tasks particular on her medications and feedings.PPS 60% - Palliative Care Discussion: Patient discouraged overall, worried about the future. Is aware all interventions are palliative in nature, many stressors including long-term plan for her , and concerned about being a burden on her daughter. Trying to stay in the moment, but does not feel well, is hopeful treatment is going to buy her some time. Impression and Recommendations - Palliative Care Impression: This is a nirali 81-year-old woman with continued high symptom burden related to her hypopharyngeal cancer. She is currently receiving palliative immunotherapy, is hoping to improve quality as well as quantity of life Recommendations/Counseling Done: 1.1. Pain of neoplastic origin. Have been titrating up gabapentin, and attempt to provide better pain control. Pain is pressure and feeling like a tight band around her head and neck. Have increased gabapentin to 200 mg 4 times daily, will increase nighttime to 300 mg as this is the time she has most difficulty as far as awakening. She is taking intermittent Tylenol, though this is at times make her a little bit more nauseated. Instructed to hold the methyl carbinol at this point in time as it is not really spasms she is experiencing and not to add to her feeling of sedation. She is using lidocaine patches to supplement, encouraged to continue to use heat as well. May need to introduce methadone if pain does not improve. 2. Malnutrition. Patient is not tolerating fiber source feedings, reports causes lots of cramping and too much stooling. Called to Karly. staking engineer, [phone], to change formula. Instructed to send two fiber source and four regular formula for 24 hour supplement. Encouraged patient to use more water in day, only at about 400 mls with meds. Did discuss at length with patient about recommendation to continue sitter continuous feedings particularly at night, she has had some problem with GERD, though landy Montelongo is helping. 3. Hypertension. Patient feels blood pressure has been running quite low, she attributes some of her sick feeling at night actually to her clonidine specifically when dosing this. Had spoken earlier to Purnima per [facility], she is in agreement to titrate medications as needed. Previous blood pressures have been as low as 112/48. Will go ahead and titrate off clonidine 0.1 mg half tab at bedtime for 4-5 days then discontinue, this was in consultation with pharmacist. They are instructed to take blood pressure daily and notify me if it is escalating. 4. Depression. Patient had initiate mirtazapine 7.5 mg at bedtime per Dr. Robledo, will leave it at 7.5 mg until other medications titrated and stabilized as feeling poorly in the evening. Patient with intermittent nausea, feeling discouraged overall. This is multifactorial in origin. Time Spent: 60 minutes with greater than 50% of this done in counseling regarding depression , adjustment to illness, medication reconciliation and adherence, as well as coordination of care with dietitian and anticipatory guidance
== END 2017-09-20 18:52 | disposition home or self-care (01) ==
LOC: PC 18:51
PROVIDERS: ATTEND Nurse Practitioner Adult Health
DX: Z51.5 Encounter for palliative care (principal); G89.3 Neoplasm related pain (acute) (chronic); E46 Unspecified protein-calorie malnutrition; I10 Essential (primary) hypertension; F32.9 Major depressive disorder, single episode, unspecified; K21.9 Gastro-esophageal reflux disease without esophagitis; J95.04 Tracheo-esophageal fistula following tracheostomy; C13.9 Malignant neoplasm of hypopharynx, unspecified; C78.00 Secondary malignant neoplasm of unspecified lung; C79.51 Secondary malignant neoplasm of bone; Z66 Do not resuscitate; Z79.899 Other long term (current) drug therapy
CPT/HCPCS: 99350

== ENCOUNTER 2017-10-04 15:10 | Outpatient (CLI) | payer MEDICARE ==
--- NOTE | 2017-10-04 18:40 | XRAY Report ---
TWO VIEW CHEST: 10/04/2017 CLINICAL INDICATION: Cough, shortness of breath, increasing white count. COMPARISON: Chest CT 08/23/2017, chest x-ray 07/05/2017. FINDINGS: Frontal and lateral views of the chest demonstrate a normal cardiac silhouette. Right subclavian port is stable. There is a new small left effusion with basilar infiltrate. Tracheostomy is stable. The right lung is clear. No pneumothorax. IMPRESSION: NEW SMALL LEFT PLEURAL EFFUSION WITH BASILAR INFILTRATE. TD: 10/04/2017 18:39
== END 2017-10-04 15:11 | disposition home or self-care (01) ==
LOC: DI 15:10
PROVIDERS: ATTEND Nurse Practitioner Adult Health
DX: R91.8 Other nonspecific abnormal finding of lung field (principal); J90 Pleural effusion, not elsewhere classified
CPT/HCPCS: 71046

== ENCOUNTER 2017-10-04 16:48 | Outpatient (CLI) | payer MEDICARE ==
--- NOTE | 2017-10-04 17:28 | CONSULTATION NOTE ---
Palliative Care Follow Up - Referral Referring Provider: Purnima RODRIGUEZ Time of Visit: [id number] Referral setting: Home (Is a taxing and considerable effort for the patient to leave the home, she is quite fatigued and having increased symptoms today.) Referral Reason: hypopharyngeal cancer - Information Sources Records reviewed: Previous records reviewed History/Review of Systems obtained from: Patient, Family (daughter natali present for visit) Exam limitations: Clinical condition (patient using electrolarnyx; more difficult to understand) - History of Present Illness Update Brief HPI Update: This is a nirali 81-year-old woman with 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 She has a dominant mass in her right side of her neck that is increasing in size and firmness, as well as progressive skin changes at her fistula site including surrounding area of cellulitis and blistering, currently is not open but looks quite fragile, and this has increased in pain and size. She has felt more fatigued, has had increased cough, almost daily nausea, and muscle weakness. Her pain is progressive as well including localized to the right side of her neck radiating from the subclavicular area down into her mediastinal, as well as feeling like she has a tourniquet on her head. She currently has her gabapentin up to 400 mg 3 times daily after visit with Dr. Robledo on 09/26, and she is leaning Tylenol every 8 hours. She has been opioid intolerant up to this point and feels currently her pain regimen is acceptable. She does have scattered rhonchi in her lower lobes left greater than right, as well as diminished in the bases. Her "button" she uses for her tracheostomy, also appears to have be shifting because of the mass-effect in her throat. Social History - Living Situation Living arrangement: At home Living Situation: With spouse/s.o. (Her spouse has advanced dementia, he goes to time together a daycare program a couple times a week, and Natali her daughter mostly oversees his care at this point in time.), With family (Her daughter Natali is living with both her parents to provide support and care.) Medications/Allergies - Medications Home Medications: Ambulatory Orders Medication Instructions Recorded Confirmed Atenolol [Tenormin] 50 mg PEG BID 11/30/13 10/05/17 cloNIDine [Catapres] 0.25 mg PEG QPM 10/01/16 10/05/17 Lisinopril 40 mg PEG BID 12/17/16 10/05/17 amLODIPine [Norvasc] 10 mg PO DAILY 05/28/17 10/05/17 Acetaminophen 500 - 1,000 mg PEG TID PRN 06/04/17 10/05/17 Methocarbamol 500 mg PO QID PRN 06/21/17 10/05/17 Prochlorperazine Supp [Compazine 12.5 - 25 mg [place] Q8HR PRN 06/26/17 10/05/17 Supp] Nystatin 5 ml PO QID 06/28/17 10/05/17 Ondansetron HCl [Zofran] 4 mg PO Q6H PRN #10 tablet 06/30/17 10/05/17 Levothyroxine [Synthroid] 150 mcg PEG QDAC 07/26/17 10/05/17 Polyethylene Glycol 3350 [Miralax] 17 gm PEG DAILY PRN 08/02/17 10/05/17 Lidocaine Patch 5% [Lidoderm Patch] 1 each TOP DAILY #14 patch 09/01/17 10/05/17 Gabapentin 400 mg PEG TID 09/20/17 10/05/17 Omeprazole [PriLOSEC] 20 mg PEG BID 09/20/17 10/05/17 Levofloxacin [Levaquin] 750 mg PEG .Q48 X 3 DOSE 10/05/17 10/05/17 - Allergies Allergies/Adverse Reactions: Allergies Allergy/AdvReac Type Severity Reaction Status Date / Time avocado Allergy Emesis Verified 09/01/17 16:32 fentanyl AdvReac Nausea Verified 09/03/17 18:40 oxycodone AdvReac Nausea Verified 09/03/17 18:40 Review of Systems - Constitutional Constitutional: reports: Fatigue, Malaise, Weakness, Weight stable (107) - Eyes Eyes: reports: Vision loss - Ears, Nose & Throat Ears, Nose & Throat: reports: Postnasal drainage, Dry mouth - Cardiovascular Cardiovascular: reports: Exertional dyspnea, Decr. exercise tolerance - Respiratory Respiratory: reports: Cough, Hemoptysis, SOB with exertion - Gastrointestinal Gastrointestinal: reports: Diarrhea (improved), Nausea (using ondansetron at least daily), Reflux/heartburn (improved) - Musculoskeletal Musculoskeletal: reports: Back pain, Muscle aches, Stiffness, Limited range of motion (neck and left hip), Muscle weakness - Integumentary Integumentary: reports: Other (fistula worsening) - Neurological Neurological: reports: General weakness, Headache, Abnormal gait (severe left hip DJD) - Psychiatric Psychiatric: reports: Depression, Anxiety - Endocrine Endocrine: reports: Hypothyroidism - Hematologic/Lymphatic Hematologic/Lymphatic: reports: Anemia (hct 33.5) - All Other Systems All Other Systems: reports: Reviewed and negative Physical Exam - Vital Signs Temperature: 98.5 C Pulse Rate: 57 Respiratory Rate: 20 O2 Saturation: 99 (ra @ rest) Blood Pressure: 132/68 - Physical Exam General Appearance: positive: Alert, Mild distress Eyes Bilateral: positive: Other (right eye drooping worse) ENT: positive: No signs of dehydration, Other (candidiasis improved) Neck: positive: Other (mass right posterior neck enlarged; increase in fullness through all of nect area; fistula was just scarring last examined with small "button"; now several raised fluid filled blisters and surrounding area reddened ; no open at this time but appears close) Cardiovascular: positive: Regular rate & rhythm Respiratory: positive: Rhonchi (scattered lower lobes; left greater than right; cough moist;). negative: Wheezes Abdomen: positive: Non-tender, Other (has PEG tube) Skin: positive: Pallor, Wound (see neck) Extremities: positive: No pedal edema Neurologic/Psychiatric: positive: Oriented x3, Depressed mood/affect Palliative Care - POLST Patient has POLST: Yes POLST Status: DNR, Selective Treatment Pain: Pain worsening, Location (neck; on gabapentin 400 mg TID; apap q8 hours) Tiredness/Fatigue: Severe (7-10) Drowsiness/Sedation: Mild (1-3) Nausea: Moderate (4-6) Depression: Moderate (4-6) Anxiety: Mild (1-3) Dyspnea: Moderate (4-6) Anorexia: Mild (1-3) Sleep: Variable sleep pattern Constipation: Yes, Opoid induced, Managed Feelings of wellbeing/Perceived Quality of Life: Poor, Worsening Performance Status: Patient with decreased activity tolerance, spending most of the time in recliner , feeling quite weak. Reports her shower just wipes her out, this is been worsening over the last week. We will put her at a PPS of 50% - Palliative Care Discussion: Patient expressing concern over her increasing neck mass, feeling poorly, and her deteriorating quality of life. She dislikes being a burden on her daughter , she is worried about the future, she does express concern over her deterioration when her daughter leaves the room, she reports her daughter likes to stay positive, and all are hoping for the best but she is concerned about her future. She is somewhat overwhelmed at the thought of adding radiation, stress and travel, as well and is concerned about side effects. Results - Lab Results Lab results reviewed: Yes Lab and Imaging Results: 09/26 WBC 14.5;ashutosh 13 Impression and Recommendations - Palliative Care Impression: This is an 81-year-old woman with recurrent hypopharyngeal carcinoma with metastatic disease to the lung and bone. She currently is on immunotherapy of pembrolizumab after progression on carboplatin and cetuximab. She presents today with symptoms of pnemonia; increasing tumor burden; fistula worsening; and high symptom burden of pain, fatigue, nausea, dyspnea, and weakness. Recommendations/Counseling Done: 1.Recurrent hypopharyngeal carcinoma,, with increase in size. Patient is scheduled for consult with radiation next week, concern regarding visual displacement of her tracheostomy button, and progressive fistula. Patient does describe increased pain radiating down right side of neck, also increase in secretions. Her hemoptysis had improved, but was recurrent yesterday. Call placed to Dr. Arvizu's office, regarding need for further evaluation, possible new sizing for her tracheostomy, as they need a prescription that is appropriate for new supplies. Would also be of help, to have a better idea what is happening in her airway space. Report left on voicemail, requesting urgent visit for patient, and call back for further information. Will send most recent notes. Daughter Natali to follow up has not heard about appointment by end of day. 2. Pneumonia. Did discuss with patient need to get chest x-ray, elevated white count for pneumonia versus cellulitis/fistula. Stat chest x-ray performed with new Basilar left infiltrate, as well as small pleural effusion. Patient started on Levaquin 750 mg every 48 hours 3 doses after consultation with pharmacist regarding creatinine clearance and recommended dosing. This is called in to [facility], medication may be crushed and put through PEG tube. 3. Pain of neoplastic origin. She has had some increased pain control with the gabapentin titrated up, she has switched to time-released Tylenol every 8 hours, she is suspect that the liquid Tylenol was adding to her diarrhea. 4. Fatigue, most likely multifactorial in origin. Counseling regarding pacing activities, continuing with focus on hydration, and managing pain. 5. Depression. Patient expressing feelings of concern, grief, counseling to normalize her current experience as well as to encourage expression of her fears and concerns. Time Spent: 45 minutes with greater than 50% of this done in counseling coordination of care , follow-up on ordering a chest x-ray, update to Dr. Robledo, and follow-up with Dr. Arvizu.
== END 2017-10-04 16:49 | disposition home or self-care (01) ==
LOC: PC 16:48
PROVIDERS: ATTEND Nurse Practitioner Adult Health
DX: Z51.5 Encounter for palliative care (principal); C13.9 Malignant neoplasm of hypopharynx, unspecified; C78.00 Secondary malignant neoplasm of unspecified lung; C79.51 Secondary malignant neoplasm of bone; R04.2 Hemoptysis; L03.221 Cellulitis of neck; J18.9 Pneumonia, unspecified organism; R91.8 Other nonspecific abnormal finding of lung field; J90 Pleural effusion, not elsewhere classified; G89.3 Neoplasm related pain (acute) (chronic); R53.83 Other fatigue; F32.9 Major depressive disorder, single episode, unspecified; Z93.1 Gastrostomy status; Z93.0 Tracheostomy status; Z79.899 Other long term (current) drug therapy; Z66 Do not resuscitate
CPT/HCPCS: 99349

== ENCOUNTER 2017-10-11 11:45 | Outpatient (CLI) | payer MEDICARE ==
--- NOTE | 2017-10-11 17:16 | CONSULTATION NOTE ---
Palliative Care Follow Up - Referral Referring Provider: Purnima RODRIGUEZ Time of Visit: 11:45-12:30 Referral setting: Home (It is a taxing considerable effort for the patient leave the home, she does have increased difficulty with secretions and to facilitate family conference.) Referral Reason: Hypopharyngeal Cancer - Information Sources Records reviewed: Previous records reviewed History/Review of Systems obtained from: Patient, Family (Natali daughter at visit ) Exam limitations: Clinical condition (Becoming more difficult to understand her with her electrolarynx) - History of Present Illness Update Brief HPI Update: This is a nirali 81-year-old woman with 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 She has continued extended growth, with a dominant mass in her right size, his continued to enlarge. She also has tumor growth now under needs her fistula site, which is now open and draining clear serous fluid. She had progression despite treatment on carboplatinum and cetuximab, is currently receiving immunotherapy of pembrolizumab., When I saw her last week she did present with increased cough , fatigue, and adventitious breath sounds. Her chest x-ray did show left infiltrate, and she was started on Levaquin. She is feeling somewhat better, her cough is improved though persistent, unfortunately now she presents with increased oral candidiasis. She is also had improvement in her pain, she had been on gabapentin 400 mg 3 times daily, they had decreased it secondary to needing a new prescription, so was taking 200 mg a.m. 200 mg mid day, and 600 at night.Patient did have a consult for radiation, was fairly traumatic in the context she had a examination of the larynx endoscopy, at this point in time the notes show the patient had no tumor lesion seen or palpable on the oral tongue base in the posterior lateral pharynx. She did not feel given the distress of laying flat, needing to be contained and lays still with difficulty with coughing and her secretions, at the benefits would outweigh the burdens, she did have radiation before with significant side effects. At this point in time she is declining radiation, though we did agree I would follow-up with Dr. Diaz with some residual questions she had. She remains quite miserable, discouraged with her continued high symptom burden, and now management of her increasing tumor mass as well as open area on her neck. Dr. Arvizu had seen picture of fistula, and felt it was tumor growth, did not go to appointment, would like RX though for new "button"/Laryngectomy tube and patient feels to far to travel. Social History - Living Situation Living arrangement: At home Living Situation: With spouse/s.o. (with advanced dementia), With family (Natali her daughter provides care and support for both parents, he can be quite challenging with managing appointments and her father with his dementia. He does appear to have some insight that Dayana is sick, but certainly does not understand the severity of the situation.) Medications/Allergies - Medications Home Medications: Ambulatory Orders Medication Instructions Recorded Confirmed Atenolol [Tenormin] 50 mg PEG BID 11/30/13 10/12/17 cloNIDine [Catapres] 0.25 mg PEG QPM 10/01/16 10/12/17 Lisinopril 40 mg PEG BID 12/17/16 10/12/17 amLODIPine [Norvasc] 10 mg PO DAILY 05/28/17 10/12/17 Acetaminophen 500 - 1,000 mg PEG TID PRN 06/04/17 10/12/17 Methocarbamol 500 mg PO QID PRN 06/21/17 10/12/17 Prochlorperazine Supp [Compazine 12.5 - 25 mg [place] Q8HR PRN 06/26/17 10/12/17 Supp] Nystatin 5 ml PO QID 06/28/17 10/12/17 Ondansetron HCl [Zofran] 4 mg PO Q6H PRN #10 tablet 06/30/17 10/12/17 Levothyroxine [Synthroid] 150 mcg PEG QDAC 07/26/17 10/12/17 Polyethylene Glycol 3350 [Miralax] 17 gm PEG DAILY PRN 08/02/17 10/12/17 Lidocaine Patch 5% [Lidoderm Patch] 1 each TOP DAILY #14 patch 09/01/17 10/12/17 Gabapentin 300 mg PEG .AM/1400 09/20/17 10/12/17 Omeprazole [PriLOSEC] 20 mg PEG BID 09/20/17 10/12/17 Fluconazole [Diflucan] 100 mg PEG .QD X3, THEN WEEKLY 10/12/17 10/12/17 Gabapentin 600 mg PEG ACHS 10/12/17 10/12/17 - Allergies Allergies/Adverse Reactions: Allergies Allergy/AdvReac Type Severity Reaction Status Date / Time avocado Allergy Emesis Verified 09/01/17 16:32 fentanyl AdvReac Nausea Verified 09/03/17 18:40 oxycodone AdvReac Nausea Verified 09/03/17 18:40 Review of Systems - Constitutional Constitutional: reports: Fatigue, Weakness, Weight stable (111 with clothes at radiation) - Ears, Nose & Throat Ears, Nose & Throat: reports: Mouth lesions - Cardiovascular Cardiovascular: reports: Decr. exercise tolerance - Respiratory Respiratory: reports: Cough (improved but still continuous), Sputum production ( clear white), SOB with exertion - Gastrointestinal Gastrointestinal: reports: Other (PEG bolus feeding of 6 cartons daily) - Genitourinary Genitourinary: denies: Incontinence - Musculoskeletal Musculoskeletal: reports: Muscle pain, Muscle aches, Stiffness, Limited range of motion (Having increased stiffness and neck discomfort radiating down into right shoulder.), Muscle weakness - Integumentary Integumentary: reports: Other (fistula opended draining) - Neurological Neurological: reports: General weakness, Headache (less but pressure from tumor) , Other (more difficulty forming words with electrolarynx) - Psychiatric Psychiatric: reports: Depression - Endocrine Endocrine: reports: Hypothyroidism - Hematologic/Lymphatic Hematologic/Lymphatic: reports: Recurrent infections (presented with pneumonia last week) - All Other Systems All Other Systems: reports: Reviewed and negative Physical Exam - Vital Signs Temperature: 98.0 C Pulse Rate: 72 Respiratory Rate: 18 O2 Saturation: 99 (ra @ rest) Blood Pressure: 142/52 - Physical Exam General Appearance: positive: Mild distress (Does get overwhelmed and exhausted with managing oral/respiratory secretions.) Eyes Bilateral: positive: Other (right eye droop) ENT: positive: Oral lesions (Thick coating of white, oral candidiasis on tongue , and bilateral buccal scattered patches.) Neck: positive: Other (Right mass continues to protrude outward, does appear more firm in nature, is causing more pressure at tracheostomy site with rotation of button, she does report more difficulty getting in and out.) Cardiovascular: positive: Regular rate & rhythm, Diastolic murmur Respiratory: positive: Diminished in bases, Rhonchi (scattered but much improved ). negative: Wheezes Abdomen: positive: Soft, Nml bowel sounds, Other (PEG tube) Skin: positive: Wound (Left-sided neck fluid-filled blister about 1.5 x 1 cm, closer to distal and of fistula small open area of eschar less than 0.5 cm. Does appear to intermittently drain unfortunately drips down into her tracheostomy area. Unable to really contain her provide dressing that is not uncomfortable.) Extremities: positive: No pedal edema Neurologic/Psychiatric: positive: Oriented x3, Weakness, Depressed mood/affect Palliative Care - POLST Patient has POLST: Yes POLST Status: DNR, Selective Treatment Pain: Pain improved, Location (Pain is described as tight and pressuring into her right side, also has some sharp shooting discomfort down the right heart of her throat. Her pain also extends into her right neck where pressure is as well as into her shoulder. She is using lidocaine topical patches with some relief. Her current baseline pain medications she had adjusted secondary to running out of gabapentin 100 mg, she is using Tylenol, as well as occasional methocarbonal for support) Tiredness/Fatigue: Severe (7-10) (some improvement with treatment of pneumonia) Drowsiness/Sedation: Mild (1-3) Nausea: Mild (1-3) Depression: Moderate (4-6) Anxiety: Moderate (4-6) Dyspnea: Mild (1-3) Sleep: Variable sleep pattern Constipation: No Feelings of wellbeing/Perceived Quality of Life: Poor, Worsening Performance Status: Patient spends most of her time in a recliner, she can walk short distances though she is quite fatigued. She tends to isolate herself and gets discouraged with trying to manage her secretions and drainage around her neck. I would put her at a PPS of 60% - Palliative Care Discussion: Patient remains quite saddened and somewhat anxious, by her progressive symptoms , and when daughter leaves the room is expressing her concerns about what happens with her disease at end of life. She absolutely feels at this point the burdens outweigh the benefits regarding radiation, her daughter Natali remains quite hopeful that the immunotherapy is going to be that "miracle drug" . Patient is concerned about how her symptoms are going to be managed at end of life, we did discuss the role of hospice, she does have her PEG tube, would be able to use that for her medications and focus on comfort at that time. She continues to express distress regarding no longer being able to be that caregiver role for her , and feeling somewhat overwhelmed with the uncertainty of the situation. Results - Lab Results Lab results reviewed: Yes Impression and Recommendations - Palliative Care Impression: This is a nirali 81-year-old woman with recurrent hypopharyngeal carcinoma with metastatic disease to the lung, and progressive right neck mass. She has been treated for her pneumonia, this is improved her fatigue and cough. She continues with high symptom burden of pain, fatigue, and depression. Palliative care to continue to follow for symptom management and support through ongoing palliative therapy for cancer. Recommendations/Counseling Done: 1. Recurrent hypopharyngeal carcinoma, continues increase in size. Patient did receive her radiation therapy consult, somewhat discouraged but quite adamant at this point in time her perceptions of burdens outweigh the benefits. Patient has some residual questions, I will follow-up with Dr. Gary Thompson and relay these back. Dr. Arvizu's office did follow up, had sent a picture for evaluation, does feel tumors below the fistula along that surgical incisional line. Patient does not feel at this point will be of benefit to follow-up, though still needs new prescription for supplies and resizing. They do have contact number for [facility], have left message as far as process, may be able to make referral to local ENT for prescription. Will coordinate with PCP 2 Pneumonia. Patient presented with elevated white count, increased cough, and stat chest x-ray revealed new basiler left infiltrate, Did treat with Levaquin 50 mg every 48 hours 3 doses with consultation with pharmacist regarding creatinine clearance. She has completed this, with some improvement in symptoms. I do suspect though she is continuing to aspirate. 3. Pain of neoplastic origin pain is somewhat improved, we did schedule to ease dosing with 300 mg capsules, 1 AM, 1 at 1400, and 2 at bedtime. She will continue use the intermittent acetaminophen, lidocaine patch, and methocarbamolAs needed. 4. Oral candidiasis. Patient does present with significant symptoms and discomfort regarding oral candidiasis, suspect exacerbated by antibiotics. Will go ahead and order Diflucan 100 mg 3, and then weekly and continue to evaluate. 5. Depression. Patient continues to express feelings of concern, grief, and fear of the future. Counseling to include the continuum of care as well as initiated conversation regarding hospice support at the point it is appropriate. Reassurance given the focus is to relief suffering, and can manage her symptoms to medications through her PEG tube. Time Spent: Time spent 45 minutes with good than 50% of this done in counseling regarding pain management, depression, anticipatory guidance. Coronation of care with radiation oncologist and [facility] in follow-up regarding management of tracheostomy.
== END 2017-10-11 11:46 | disposition home or self-care (01) ==
LOC: PC 11:45
PROVIDERS: ATTEND Nurse Practitioner Adult Health
DX: Z51.5 Encounter for palliative care (principal); G89.3 Neoplasm related pain (acute) (chronic); C13.9 Malignant neoplasm of hypopharynx, unspecified; C78.00 Secondary malignant neoplasm of unspecified lung; C79.51 Secondary malignant neoplasm of bone; J18.9 Pneumonia, unspecified organism; B37.0 Candidal stomatitis; F32.9 Major depressive disorder, single episode, unspecified; F41.9 Anxiety disorder, unspecified; R53.83 Other fatigue; L98.8 Other specified disorders of the skin and subcutaneous tissue; Z93.1 Gastrostomy status; Z96.3 Presence of artificial larynx; Z66 Do not resuscitate
CPT/HCPCS: 99349

== ENCOUNTER 2017-11-01 20:04 | Outpatient (CLI) | payer MEDICARE ==
--- NOTE | 2017-11-01 20:58 | CONSULTATION NOTE ---
Palliative Care Follow Up - Referral Referring Provider: Purnima RODRIGUEZ Time of Visit: [id number] Referral setting: Home Referral Reason: Hypopharyngeal cancer/Pain of neoplastic origin - Information Sources Records reviewed: Previous records reviewed History/Review of Systems obtained from: Patient, Family (daughter Marisol at visit) Exam limitations: Clinical condition (difficult to communicate with electrolarynx) - History of Present Illness Update Brief HPI Update: This is a nirali 81-year-old woman with hypopharyngeal carcinoma with metastases to her lung and bone including a T2 lesion. She continues to have a dominant mass in the right side of her neck, this does appear enlarged, of most note to myself the extension is filled and closer up to her job bone. There used to be some space and there. She has had progressive pain particularly in the back of her right neck area. She does have some radiation and sharp shooting pains down her right shoulder resulting in intermittent muscle spasms. She does have some rhonchi that clear with coughing, her secretions are clear. Does appear her pneumonia has resolved. She she has had no fever or further chills. She did have severe nausea and vomiting lasting about a week after her last immunotherapy treatment, this is since resolved with only occasional evening nausea. Her most impactful symptom is her overwhelming fatigue, this is progressed through the last couple treatment cycles. She has at this point in time decided not to pursue radiation therapy, she does recognize the treatment is palliative in nature, and wonder given her difficult week after treatment whether she should continue. She does present with depressive symptoms today, I am meeting with her and her other daughter Marisol. Her daughter Natali who is her primary caregiver is getting some respite today. Social History - Living Situation Living arrangement: At home Living Situation: With spouse/s.o., With family (daughter Natali is primary caregiver for both parents; she is on respite day today) Medications/Allergies - Medications Home Medications: Ambulatory Orders Medication Instructions Recorded Confirmed Atenolol [Tenormin] 50 mg PEG BID 11/30/13 11/01/17 Lisinopril 40 mg PEG BID 12/17/16 11/01/17 amLODIPine [Norvasc] 10 mg PO DAILY 05/28/17 11/01/17 Acetaminophen 500 - 1,000 mg PEG TID PRN 06/04/17 11/01/17 Methocarbamol 500 mg PO QID PRN 06/21/17 11/01/17 Prochlorperazine Supp [Compazine 12.5 - 25 mg [place] Q8HR PRN 06/26/17 11/01/17 Supp] Ondansetron HCl [Zofran] 4 mg PO Q6H PRN #10 tablet 06/30/17 11/01/17 Levothyroxine [Synthroid] 150 mcg PEG QDAC 07/26/17 11/01/17 Polyethylene Glycol 3350 [Miralax] 17 gm PEG DAILY PRN 08/02/17 11/01/17 Lidocaine Patch 5% [Lidoderm Patch] 1 each TOP DAILY #14 patch 09/01/17 11/01/17 Gabapentin 300 mg PEG .AM/NOON 09/20/17 11/01/17 Omeprazole [PriLOSEC] 20 mg PEG BID PRN 09/20/17 11/01/17 Fluconazole [Diflucan] 100 mg PEG .WEEKLY 10/12/17 11/01/17 Gabapentin 600 mg PEG .1800 2200 10/12/17 11/01/17 Mirtazapine 7.5 mg PO ACHS 11/01/17 11/01/17 - Allergies Allergies/Adverse Reactions: Allergies Allergy/AdvReac Type Severity Reaction Status Date / Time avocado Allergy Emesis Verified 09/01/17 16:32 fentanyl AdvReac Nausea Verified 09/03/17 18:40 oxycodone AdvReac Nausea Verified 09/03/17 18:40 Review of Systems - Constitutional Constitutional: reports: Fatigue, Weakness, Weight loss (103). denies: Fever, Chills - Eyes Eyes: reports: Vision loss - Ears, Nose & Throat Ears, Nose & Throat: reports: Other (better control of candidiasis with weekly diflucan) - Cardiovascular Cardiovascular: reports: Lightheadedness, Decr. exercise tolerance - Respiratory Respiratory: reports: Cough, SOB with exertion. denies: Hemoptysis - Gastrointestinal Gastrointestinal: reports: Nausea (had severe nausea and vomiting for one week after treatment last week; now resolved with nausea about one to two times a week; change up of formula helped too), Reflux/heartburn - Genitourinary Genitourinary: denies: Incontinence - Musculoskeletal Musculoskeletal: reports: Muscle aches (right neck pain and stiffness), Stiffness, Muscle weakness, Joint pain (left hip worsening;) - Integumentary Integumentary: reports: Other (reports no bleeding at trach exit site/nor erosion; some tightness). denies: Rash - Neurological Neurological: reports: General weakness, Headache (pressure along right side of head) - Psychiatric Psychiatric: reports: Depression (worsening dark mood; more persistent) - Endocrine Endocrine: reports: Intolerance to cold - Hematologic/Lymphatic Hematologic/Lymphatic: reports: Recurrent infections (recent treatment for pneumonia) - All Other Systems All Other Systems: reports: Reviewed and negative Physical Exam - Vital Signs Temperature: 97.4 C Pulse Rate: 73 Respiratory Rate: 18 O2 Saturation: 97 (ra @ rest) Blood Pressure: 136/62 - Physical Exam General Appearance: positive: No acute distress Eyes Bilateral: positive: Normal inspection, Other (drooping right eyelid) ENT: positive: Other (candidiasis much improved on diflucan;) Neck: positive: Other (tumor swelling has increased in space) Cardiovascular: positive: Regular rate & rhythm Respiratory: positive: Diminished in bases, Rhonchi (clear with coughing). negative: Wheezes Abdomen: positive: Soft Skin: positive: Pallor, Dryness, Other (PEG exit site without signs of infection ) Extremities: positive: No pedal edema, Other (gait with limping on left; left hip pain worsening) Neurologic/Psychiatric: positive: Oriented x3, Depressed mood/affect Palliative Care - POLST Patient has POLST: Yes POLST Status: DNR, Selective Treatment Pain: Pain worsening, Location (right neck pain; head pressure ; left hip) Tiredness/Fatigue: Severe (7-10) Drowsiness/Sedation: Moderate (4-6) Nausea: Mild (1-3) Depression: Severe (7-10) Anxiety: Mild (1-3) Dyspnea: Mild (1-3) Sleep: Variable sleep pattern Constipation: Yes, Managed Feelings of wellbeing/Perceived Quality of Life: Fair, Worsening Performance Status: Patient does need some assistance with showering, she is still able to dress. She is managing her own tube feeding and medications with Natali's assistance. She does spend most of the time in a recliner, she is reticent to go out both because of fatigue and the enlarging mass. - Palliative Care Discussion: Discussion focused on patient's feeling of grief and loss, persistent depressive symptoms, and diminishing quality of life. We did focus on weighing benefits and burdens regarding continuing treatment, she is due for her last cycle before restaging next week, did frame in the context of symptom management that no treatment also has consequences as well. She remains worried about the impact of her illness on her family, she is finding less and less things that provide her quality of life, and with progressive discomfort worried about the future. This is a first time I met with Marisol and her, addressed questions and concerns. Results - Lab Results Lab results reviewed: Yes Impression and Recommendations - Palliative Care Impression: Is a nirali 81-year-old woman with recurrent hypopharyngeal carcinoma with metastatic disease to the lung, and progressive right neck mass. She continues with high symptom burden regarding fatigue, depression, and pain. Palliative care to provide support for pain and symptom management as well as anticipatory guidance until transition to hospice. Recommendations/Counseling Done: 1. Oral candidiasis. Patient is doing much better on weekly Diflucan, she dislikes nystatin swish and swallow which so far has not been effective, will continue. 2. Pain of neoplastic origin secondary to increasing right neck mass. Patient currently using gabapentin 300 mg a.m. 2 PM and dinner and 600 p.m. at bedtime. Counseling regarding patient's concerns, has used Tylenol for breakthrough pain medication with good effect, though has had increased pain over the last several days. We did discuss her current gabapentin total dosing is only 1500 mg and we have some room to titrate up, will go ahead and titrate up another 300 mg today and every few days as patient needs for comfort. Discussed adding methadone, given her nausea and vomiting after treatment last week, will wait until last cycle completed. Then agreed would introduce slowly to see if patient can tolerate. Am concerned regarding her tools and managing her pain at end of life. She is also using intermittent methyl carbinol for spasms as well as lidocaine patches. Discussed the addition of heat has she does have tightness in that area, or other topicals alternating with lidocaine patch. 2. Protein calorie malnutrition. Patient is holding weight at 103. They are changing of formula as she has had part most likely of her nausea with the fiber source. They are using a combination of boost fiber source at this point in time. Patient does appear to be able to titrate this according to her need. Did encourage her not to the point in nausea, but if she is having a better day to increase up to 6 cans as possible, and to also make sure she is getting enough water. 3. Hypo-pharyngeal carcinoma, recurrent. Neck mass does appear to be increasing in size, as well as discomfort. She does feel currently her Will tube does fit, there is a smaller one if needed, she is not having any erosion at this point in time. She is managing his secretions with both oral suction and adequate cough effort currently. 4. Depression. Patient had initiate mirtazapine, but only taken 1 dose secondary to felt it disturbed her sleep. Did offer to change of antidepressant , she is having trouble sleeping would like to rechallenge mirtazapine will try this evening, if this does not work she will contact me. Counseling regarding depression, anticipatory grief, and feelings of grief and loss. 5. Advanced care planning. Patient's SUMMER ST in place, she does have a very complex disease, and concern about sequela as disease progresses. Will continue to provide palliative care support and active symptom management. Transition to hospice when appropriate Time Spent: 60 minutes with greater than 50% of this done in counseling regarding pain and symptom management, depression, and anticipatory guidance
== END 2017-11-01 20:05 | disposition home or self-care (01) ==
LOC: PC 20:04
PROVIDERS: ATTEND Nurse Practitioner Adult Health
DX: Z51.5 Encounter for palliative care (principal); B37.0 Candidal stomatitis; G89.3 Neoplasm related pain (acute) (chronic); E46 Unspecified protein-calorie malnutrition; C13.9 Malignant neoplasm of hypopharynx, unspecified; C78.00 Secondary malignant neoplasm of unspecified lung; C79.51 Secondary malignant neoplasm of bone; F32.9 Major depressive disorder, single episode, unspecified; Z87.01 Personal history of pneumonia (recurrent); Z93.1 Gastrostomy status; Z66 Do not resuscitate; Z79.899 Other long term (current) drug therapy; Z93.0 Tracheostomy status
CPT/HCPCS: 99350

== ENCOUNTER 2017-11-11 15:59 | Inpatient (IN) | payer MEDICARE ==
[2017-11-11] MEDS ORDERED: MORPHINE 2 MG/ML CARPUJECT IVP STA ×2 (16:13→18:22)
--- NOTE | 2017-11-11 16:15 | ED Physician Documentation ---
History of Present Illness - Stated complaint Stated Complaint: DIFF BREATHING - History obtained from History obtained from: Patient, Family - History of Present Illness Timing: Today Pain level max: 0 Pain level now: 0 Improved by: nothing Worsened by: nothing - Additonal information Additional information: Patient is an 81-year-old female with a history of hypopharyngeal cancer and laryngectomy. She states that today she began having trouble breathing and felt like her heart rate was increased. Family tried suctioning her at home but this did not help her difficulty breathing. Does not normally use nebulizers. Is currently undergoing chemotherapy. Sees Dr. Robledo. No fevers. Mild dry cough. Review of Systems Ten Systems: 10 systems reviewed and negative Constitutional: denies: Fever, Chills Ears: denies: Ear pain Nose: denies: Rhinorrhea / runny nose, Congestion Throat: denies: Sore throat Cardiac: denies: Chest pain / pressure Respiratory: reports: Dyspnea GI: denies: Abdominal Pain, Nausea, Vomiting, Diarrhea Skin: denies: Rash Musculoskeletal: denies: Neck pain, Back pain Neurologic: denies: Focal weakness, Numbness, Headache PD PAST MEDICAL HISTORY - Past Medical History Cardiovascular: Hypertension, High cholesterol, [place] Respiratory: Other Neuro: Other Endocrine/Autoimmune: HyPOthyroidism GI: Chronic constipation, Diverticulitis ENTRY LEVEL CHEMIST: Breast cancer : None HEENT: Other Psych: Depression Musculoskeletal: Osteoarthritis, Fatigue, Other Derm: Other - Past Surgical History Past Surgical History: Yes General: Cholecystectomy, Other Ortho: Other /ENTRY LEVEL CHEMIST: Other Cardiovascular: Coronary stent HEENT: Tonsil/Adenoidectomy, Other Derm: Skin grafts - Present Medications Home Medications: Ambulatory Orders Medication Instructions Recorded Confirmed Atenolol [Tenormin] 50 mg PEG BID 11/30/13 11/07/17 Lisinopril 40 mg PEG BID 12/17/16 11/07/17 amLODIPine [Norvasc] 10 mg PO DAILY 05/28/17 11/07/17 Acetaminophen 500 - 1,000 mg PEG TID PRN 06/04/17 11/07/17 Methocarbamol 500 mg PO QID PRN 06/21/17 11/07/17 Prochlorperazine Supp [Compazine 12.5 - 25 mg ND Q8HR PRN 06/26/17 11/07/17 Supp] Ondansetron HCl [Zofran] 4 mg PO Q6H PRN #10 tablet 06/30/17 11/07/17 Levothyroxine [Synthroid] 150 mcg PEG QDAC 07/26/17 11/07/17 Polyethylene Glycol 3350 [Miralax] 17 gm PEG DAILY PRN 08/02/17 11/07/17 Lidocaine Patch 5% [Lidoderm Patch] 1 each TOP DAILY #14 patch 09/01/17 11/07/17 Gabapentin 300 mg PEG .AM/NOON 09/20/17 11/07/17 Omeprazole [PriLOSEC] 20 mg PEG BID PRN 09/20/17 11/07/17 Fluconazole [Diflucan] 100 mg PEG .WEEKLY 10/12/17 11/07/17 Gabapentin 600 mg PEG .1800 2200 10/12/17 11/07/17 Mirtazapine 7.5 mg PO ACHS 11/01/17 11/07/17 - Allergies Allergies/Adverse Reactions: Allergies Allergy/AdvReac Type Severity Reaction Status Date / Time avocado Allergy Emesis Verified 09/01/17 16:32 fentanyl AdvReac Nausea Verified 09/03/17 18:40 oxycodone AdvReac Nausea Verified 09/03/17 18:40 - Social History Does the pt smoke?: No Smoking Status: Never smoker Does the pt drink ETOH?: No Does the pt have substance abuse?: No - Immunizations Immunizations are current?: Yes - POLST Patient has POLST: Yes PD ED PE NORMAL - Vitals Vital signs reviewed: Yes - General General: Alert and oriented X 3, No acute distress - HEENT HEENT: PERRL, Ears normal, Moist mucous membranes - Neck Neck: Supple, no meningeal sign, Other (tracheal stoma in place without signs of infection.) - Cardiac Cardiac: RRR - Respiratory Respiratory: No respiratory distress, Other (decreased BS on the L.) - Abdomen Abdomen: Soft, Non tender, Non distended - Derm Derm: Warm and dry - Extremities Extremities: No calf tenderness / cord - Neuro Neuro: Alert and oriented X 3 - Psych Psych: Normal mood, Normal affect Results - Vitals Vitals: Vital Signs - 24 hr 11/11/17 11/11/17 11/11/17 16:04 16:56 18:47 Temperature 36.1 C L 37.5 C Heart Rate 98 87 97 Respiratory 24 17 16 Rate Blood Pressure 169/86 H 145/60 H 158/76 H O2 Saturation 94 90 L 94 11/11/17 20:22 Temperature Heart Rate 89 Respiratory 22 Rate Blood Pressure 145/57 H O2 Saturation 99 Oxygen O2 Source Simple Mask - Labs Labs: Laboratory Tests 11/11/17 11/11/17 11/11/17 16:30 16:30 16:30 WBC 20.4 H RBC 3.96 L Hgb 10.7 L Hct 33.3 L MCV 84.1 MCH 27.2 MCHC 32.3 RDW 14.2 Plt Count 361 MPV 6.5 L Neut # 18.9 H Lymph # 0.5 L Branch # 0.7 Eos # 0.0 Baso # 0.1 Absolute Nucleated RBC 0.00 Nucleated RBC % 0.0 Manual Slide Review Indicated Platelet Estimate NORMAL (130-450,000) Platelet Morphology NORMAL APPEARANCE RBC Morph Micro Appear 1+ ANISOCYTOSIS Sodium 128 L Potassium 4.4 Chloride 87 L Carbon Dioxide 28 Anion Gap 13.0 BUN 18 Creatinine 0.4 Estimated GFR (MDRD) 153 Glucose 182 H Calcium 8.7 Magnesium Total Bilirubin < 0.2 L AST 64 H ALT 88 H Alkaline Phosphatase 98 Troponin I < 0.04 Total Protein 6.7 Albumin 2.9 L Globulin 3.8 Albumin/Globulin Ratio 0.8 L Lipase 13 L 11/11/17 16:30 WBC RBC Hgb Hct MCV MCH MCHC RDW Plt Count MPV Neut # Lymph # Branch # Eos # Baso # Absolute Nucleated RBC Nucleated RBC % Manual Slide Review Platelet Estimate Platelet Morphology RBC Morph Micro Appear Sodium Potassium Chloride Carbon Dioxide Anion Gap BUN Creatinine Estimated GFR (MDRD) Glucose Calcium Magnesium 2.0 Total Bilirubin AST ALT Alkaline Phosphatase Troponin I Total Protein Albumin Globulin Albumin/Globulin Ratio Lipase - Rads (name of study) CXR Radiology: Prelim report reviewed, EMP read contemporaneously, See rad report ( Increasing left-sided pleural effusion now large. Left lower lung consolidation is also increased, a component of which likely reflects compressive atelectasis. Underlying infection or other process cannot be excluded) CT chest Radiology: Prelim report reviewed, EMP read contemporaneously, See rad report ( Increased large neck malignant mass as described above. 2. Multiple new left- sided pleural-based masses concerning for pleural metastasis. 3. New large left pleural effusion. Left passive atelectasis. Pneumonia not excluded. 4. New right lung pulmonary nodules most concerning for metastasis. 5. New mediastinal lymphadenopathy concerning for metastasis. 6. There is debris within the trachea and fluid in the bilateral bronchi, left greater than right. 6. See the remainder of the findings as above. ) PD MEDICAL DECISION MAKING - ED course Complexity details: reviewed old records, reviewed results, re-evaluated patient , considered differential, d/w patient, d/w family, d/w systems consultant (Dr. Renee - oncology) ED course: Patient is an 81-year-old female with a long history of hypopharyngeal cancer, presents with worsening dyspnea today. Appears to have a large left pleural effusion. I discussed the case with her oncologist polymerization helper who recommends admission to the hospital and radiology to drain the effusion in the morning. A CT scan also be performed. She is hypoxic and is requiring supplemental oxygen. Feels better after small doses of morphine for the air hunger. Discussed the case with Dr. Rodriguez, hospitalist who accepts. This document was made in part using voice recognition software. While efforts are made to proofread this document, sound alike and grammatical errors may occur. Departure - Departure Disposition: [facility] DC/Xfer Clinical Impression: Hypoxia, Pleural effusion Pneumonia Qualifiers: Pneumonia type: due to unspecified organism Laterality: left Lung location: unspecified part of lung Qualified Code(s): J18.9 - Pneumonia, unspecified organism Condition: Stable Discharge Date/Time: 11/11/17 21:58
[2017-11-11 16:41] LABS: BASOPHILS # (AUTO) 0.1 10^3/uL (0.0-0.1); BASOPHILS % (AUTO) 0.4 %; EOSINOPHILS % (AUTO) 0.2 %; HGB - HEMOGLOBIN 10.7 g/dL (12.0-16.0); LYMPHOCYTES # (AUTO) 0.5 10^3/uL (1.5-3.5); LYMPHOCYTES % (AUTO) 2.7 %; MEAN CORPUSCULAR HEMOGLOBIN 27.2 pg (27.0-31.0); MEAN CORPUSCULAR HGB CONC 32.3 g/dL (32.0-36.0); MEAN CORPUSCULAR VOLUME 84.1 fL (81.0-99.0); MEAN PLATELET VOLUME 6.5 fL (7.9-10.8); MONOCYTES # (AUTO) 0.7 10^3/uL (0.0-1.0); MONOCYTES % (AUTO) 3.7 %; NEUTROPHILS # (AUTO) 18.9 10^3/uL (1.5-6.6); PLT - PLATELET COUNT 361 10^3/uL (130-450); RED BLOOD COUNT 3.96 10^6/uL (4.20-5.40); RED CELL DISTRIBUTION WIDTH 14.2 % (12.0-15.0); WHITE BLOOD COUNT 20.4 x10^3/uL (4.8-10.8)
[2017-11-11 16:53] LABS: ALBUMIN 2.9 g/dL (3.2-5.5); ALBUMIN/GLOBULIN RATIO 0.8 (1.0-2.2); ALKALINE PHOSPHATASE 98 IU/L (42-121); ALT ALANINE AMINOTRANSFERASE 88 IU/L (10-60); AST ASPARTATE AMINOTRANSFERASE 64 IU/L (10-42); BILIRUBIN,TOTAL < 0.2 mg/dL (0.2-1.0); BUN - BLOOD UREA NITROGEN 18 mg/dL (6-20); CALCIUM 8.7 mg/dL (8.5-10.3); CARBON DIOXIDE - CO2 28 mmol/L (21-32); CHLORIDE 87 mmol/L (101-111); CREATININE 0.4 mg/dL (0.4-1.0); GFR - MDRD 153 (>89); GLUCOSE 182 mg/dL (70-100); LIPASE 13 U/L (22-51); SODIUM 128 mmol/L (135-145); TOTAL PROTEIN 6.7 g/dL (6.7-8.2)
[2017-11-11 16:56] LABS: PLATELET ESTIMATE, MANUAL NORMAL (130-450,000) (NORMAL); PLATELET MORPHOLOGY NORMAL APPEARANCE (NORMAL); RBC MORPHOLOGY (MULTIPLE) 1+ ANISOCYTOSIS (NORMAL)
--- NOTE | 2017-11-11 16:58 | XRAY Report ---
EXAM: CHEST RADIOGRAPHY EXAM DATE: 11/11/2017 04:43 PM. CLINICAL HISTORY: Dyspnea. COMPARISON: 10/04/2017. TECHNIQUE: 1 view. FINDINGS: Lungs/Pleura: Large left pleural effusion now seen, increased compared to prior. Left basilar consoli dation is also increased. Unchanged coarse linear right basilar opacities, likely reflecting atelecta sis and scarring. No new right-sided consolidation. No pneumothorax. Mediastinum: Heart size and mediastinum appear unchanged. Atheromatous calcification noted aortic arc h. Other: Stable position of chest port catheter. IMPRESSION: 1. Increasing left-sided pleural effusion now large. 2. Left lower lung consolidation is also increased, a component of which likely reflects compressive atelectasis. Underlying infection or other process cannot be excluded. [facility] Referring Provider Line: [phone] SITE ID: [id number]
--- NOTE | 2017-11-11 16:58 | XRAY Preliminary Report ---
Exam: XR CHEST 1 VIEW X-RAY IMPRESSION: 1. Increasing left-sided pleural effusion now large. 2. Left lower lung consolidation is also increased, a component of which likely reflects compressive atelectasis. Underlying infection or other process cannot be excluded. [facility] SITE ID: [id number]
[2017-11-11] MEDS ORDERED: ONDANSETRON 4 MG/2 ML VIAL IVP STA (18:22)
[2017-11-11] MEDS ORDERED: IOPAMIDOL-300 100 ML VIAL ONE (19:10)
[2017-11-11] MEDS ORDERED: IOPAMIDOL-300 100 ML VIAL IVP ONE (19:50)
--- NOTE | 2017-11-11 20:47 | CT Report ---
EXAM: CT CHEST EXAM DATE: 11/11/2017 07:56 PM. CLINICAL HISTORY: Left sided pleural effusion, leukocytosis. COMPARISONS: Chest CT 08/23/2017. TECHNIQUE: Routine helical CT imaging was performed through the chest. IV contrast: 80 ML Isovue 300. Reconstructions: Coronal and sagittal. In accordance with CT protocol optimization, one or more of the following dose reduction techniques w ere utilized for this exam: automated exposure control, adjustment of mA and/or KV based on patient s ize, or use of iterative reconstructive technique. FINDINGS: Increased size of the large neck mass occluding the airway and encasing neck vessels. The m ass measures 8.8 x 10.7 cm. Patient has a tracheostomy tube. The left subclavian artery appears mostly occluded, appears similar to the prior. High-grade stenosis with consultation seen at the proximal common carotid artery, unchanged. No thoracic aortic aneurysm or dissection. Prominent heart size. Increased paratracheal lymphadenopathy measuring 1.3 cm. Subcarinal lymphadenopathy measures 1.1 cm, increased. Large left pleural effusion is new. There is passive atelectasis with consolidation at the left upper lobe and left lower lobe. Pneumonia not excluded. Multiple new pleural-based masses seen on the left side, the largest is seen posteriorly measuring 4.4 x 2.3 cm most concerning for pleural metastasis. Left apex fibrosis again noted. New right upper lobe pulmonary nodule measures 7 mm. New right middle lobe pulmonary nodule measures 5 mm. Mild right base atelectasis. There is debris within the trachea and fluid in the bilateral bronchi, l eft greater than right. No acute bone findings are seen. 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 In the upper abdomen, status post cholecystectomy without bile duct dilatation. IMPRESSION: 1. Increased large neck malignant mass as described above. 2. Multiple new left-sided pleural-based masses concerning for pleural metastasis. 3. New large left pleural effusion. Left passive atelectasis. Pneumonia not excluded. 4. New right lung pulmonary nodules most concerning for metastasis. 5. New mediastinal lymphadenopathy concerning for metastasis. 6. There is debris within the trachea and fluid in the bilateral bronchi, left greater than right. 6. See the remainder of the findings as above. [facility] Referring Provider Line: [phone] SITE ID: [id number]
[2017-11-11] MEDS ORDERED: TEMAZEPAM 15 MG CAPSULE PO PRN (20:48)
[2017-11-11] MEDS ORDERED: ACETAMINOPHEN 325 MG TABLET PO PRN (20:48)
[2017-11-11] MEDS: SODIUM CHLORIDE 0.9% 1,000 ML IV SCH (23:53)
[2017-11-11] MEDS: MORPHINE 2 MG/ML CARPUJECT IVP PRN (23:53)
[2017-11-11] MEDS: ONDANSETRON 4 MG/2 ML VIAL IVP PRN (23:56)
[2017-11-12] MEDS: AZTREONAM 2 GM in SODIUM CHLORIDE 0.9% MINIBAG 100 ML IV SCH ×3 (00:03→16:43)
[2017-11-12] MEDS: LISINOPRIL 20 MG TABLET PEG SCH ×3 (00:31→21:41)
[2017-11-12] MEDS: ATENOLOL 25 MG TABLET PEG SCH ×3 (00:32→21:41)
[2017-11-12] MEDS: MIRTAZAPINE 15 MG TABLET PO SCH ×2 (00:32→07:02)
[2017-11-12] MEDS: SODIUM CHLORIDE FLUSH 0.9% 10 ML SYRINGE IVP SCH ×3 (00:34→16:43)
[2017-11-12] MEDS ORDERED: FLUCONAZOLE 100 MG TABLET PEG SCH (02:00)
[2017-11-12] MEDS: MORPHINE 2 MG/ML CARPUJECT IVP PRN ×2 (03:05→07:03)
[2017-11-12] MEDS: SODIUM CHLORIDE FLUSH 0.9% 10 ML SYRINGE IVP PRN ×2 (03:07→12:36)
[2017-11-12] MEDS: GABAPENTIN 300 MG CAPSULE PEG SCH ×5 (03:07→21:41)
[2017-11-12] MEDS: LEVOTHYROXINE 75 MCG TABLET PEG SCH (07:02)
[2017-11-12] MEDS: ONDANSETRON 4 MG/2 ML VIAL IVP PRN ×2 (07:03→12:36)
[2017-11-12] MEDS ORDERED: POLYETHYLENE GLYCOL 3350 17 GM PACKET PEG PRN (07:26)
[2017-11-12] MEDS ORDERED: ONDANSETRON ODT 4 MG Prepack 2 TL PRN (07:26)
[2017-11-12] MEDS ORDERED: PROCHLORPERAZINE 25 MG SUPP PR PRN (07:26)
[2017-11-12] MEDS ORDERED: ONDANSETRON ODT 4 MG TABLET TL PRN (07:30)
[2017-11-12 07:37] LABS: HGB - HEMOGLOBIN 10.8 g/dL (12.0-16.0); MEAN CORPUSCULAR HEMOGLOBIN 27.4 pg (27.0-31.0); MEAN CORPUSCULAR HGB CONC 32.7 g/dL (32.0-36.0); MEAN CORPUSCULAR VOLUME 83.7 fL (81.0-99.0); MEAN PLATELET VOLUME 6.3 fL (7.9-10.8); RED BLOOD COUNT 3.95 10^6/uL (4.20-5.40); RED CELL DISTRIBUTION WIDTH 14.5 % (12.0-15.0); WHITE BLOOD COUNT 14.1 x10^3/uL (4.8-10.8)
[2017-11-12 07:52] LABS: CALCIUM 7.7 mg/dL (8.5-10.3); CREATININE 0.4 mg/dL (0.4-1.0)
--- NOTE | 2017-11-12 07:56 | HISTORY & PHYSICAL EXAMINATION ---
DATE OF SERVICE: 11/11/17 Physician: Bindu Dawn MD HISTORY OF PRESENT ILLNESS: This is an 81-year-old white female with a history of head and neck cancer, laryngectomy, tracheostomy with PEG tube feedings. She has a history of spread of the cancer and is currently undergoing chemotherapy. She also has a history of remote GA and coronary stenting, hypertension, hypothyroidism, depression, and chronic pain. The patient and her with dementia are being taken care of by their daughter, the caregiver. The patient presented today with more trouble breathing than usual and difficulty clearing secretions. The family tried to suction her at home, but this did not help the shortness of breath and she was brought to the emergency room. There were no fevers and she has a slight cough. The emergency room findings were that of left-sided pleural effusion, which she has had before. The emergency room doctor called the oncologist covering for Dr. Robledo, her oncologist. That oncologist recommended that the patient be admitted here for thoracentesis of the left-sided pleural effusion by Interventional Radiology. PAST MEDICAL HISTORY 1. Head and neck cancer. 2. Laryngectomy with tracheostomy and PEG tube feedings. 3. Spread of the malignancy and currently undergoing chemotherapy. 4. Hypertension. 5. Remote GA with coronary stenting. 6. Hypothyroidism. 7. Hypertension. 8. Depression. 9. Chronic pain. ALLERGIES 1. AVOCADOS. 2. FENTANYL. 3. OXYCODONE. MEDICINES 1. Tenormin 50 mg by PEG b.i.d. 2. Lisinopril 40 mg by PEG b.i.d. 3. Norvasc 10 mg by PEG daily. 4. Tylenol p.r.n. pain. 5. Methocarbamol 500 mg q.i.d. 6. Compazine p.r.n. nausea. 7. Zofran p.r.n. nausea. 8. Synthroid 150 mcg via PEG daily. 9. MiraLax via PEG daily. 10. Lidocaine patch topically daily. 11. Gabapentin 300 mg in the a.m. and noon. 12. Prilosec 20 mg by PEG b.i.d. p.r.n. 13. Diflucan 100 mg by PEG weekly for oral thrush. 14. Gabapentin 600 mg by PEG at dinnertime and bedtime. 15. Mirtazapine 7.5 mg p.o. before meals and at bedtime. REVIEW OF SYSTEMS: The patient currently has pain in the right neck area, rated 7/10. She denies air hunger currently. The patient is able to feed herself with Isosource 6 cans per day via PEG. The patient is able to suction herself orally, but possibly not via the trach. She communicates with an electronic hand-held device. She denies any edema. There is occasional constipation. A comprehensive review of systems was performed by asking the patient (but she is difficult to understand, communicating with the hand-held wand), and therefore also with review of chart, and the pertinent positives are above. FAMILY HISTORY: No inherited diseases. SOCIAL HISTORY: The patient is a nonsmoker, drinks no alcohol or illicit drugs. The patient lives with her and he has dementia. Their daughter is the caregiver for both patients. The patient is homebound and does not drive. PHYSICAL EXAMINATION GENERAL: Cachectic white female. VITAL SIGNS: Blood pressure 114/56, pulse of 85 in sinus rhythm, afebrile, oxygen via trach collar at 8 liters is 96%. HEENT: Reveals laryngectomy and she uses a transponder for speaking. She has asymmetry to her lower face. The oral mucosa is moist. NECK: Positive JVD as well as superficial spider vessels consistent with her subclavian stenosis. There is no carotid bruit. CHEST: Diminished breath sounds at both bases and entirely diminished on the left side. HEART: Heart sounds are distant. No audible murmur. ABDOMEN: Thin, decreased bowel sounds, nontender. EXTREMITIES: Show no edema. The skin does have tenting. NEUROLOGIC: Motor strength grossly intact. LABORATORY DATA: White count 20.4 with left shift, hemoglobin 10.7, platelet count 361, sodium 128, potassium 4.4, BUN 18, creatinine 0.4, magnesium 2.0, AST 64, ALT 88, bilirubin normal. Troponin not detectable at <0.04. Albumin 2.9. EKG: Normal sinus rhythm and within normal limits. CHEST X-RAY: Moderate to large left pleural effusion. Left lower lobe consolidation. Heart and mediastinum are unchanged from prior, and there is atheromatous calcification of the aortic arch. CT OF THE CHEST had extensive findings: Increased large neck malignant mass encasing the vessels of her neck. Multiple new left-sided pleural based masses suggesting pleural metastasis. New large left pleural effusion and left passive atelectasis versus infiltrate of pneumonia. New right lung pulmonary nodules concerning for metastasis. New mediastinal lymphadenopathy concerning for metastasis. Debris within the trachea and fluid in the bilateral bronchi, left greater than right. IMPRESSION/DIAGNOSES 1. Healthcare-associated pneumonia. 2. Pleural effusion, Left sided, large. 3. Extensive and diffuse neck and thoracic masses/metastases. 4. Head and neck cancer with a tracheostomy and PEG tube feedings. 5. Malnutrition/cachexia. 6. 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 7. Hypertension history. 8. Myocardial infarction history. 9. Depression history. PLAN: Admit the patient to telemetry. Begin gentle IV hydration. Begin IV antibiotics with Aztreonam 2 grams IV q.8 hours for a healthcare-associated pneumonia in an immunocompromised patient. Obtain ultrasound markings of the left pleural effusion for possible thoracentesis. Obtain further input from her Oncologist as well as palliative care LAWN MOWER OPERATOR, Rosy Rodriguez, who has seen her before or consider enrolling in Hospice. Continue with her nutritional feedings per PEG tube and continue pain medications and blood pressure medications. DEEP VENOUS THROMBOSIS PROPHYLAXIS: SCDs. CODE STATUS: DNR. ATTESTATION: The patient is expected to be discharged or transferred to another facility within 96 hours: Yes. TD: 11/12/2017 07:55 RHONDA
[2017-11-12] MEDS ORDERED: ACETAMINOPHEN 160 MG/5 ML SUSP UDC PEG PRN (08:49)
[2017-11-12] MEDS ORDERED: FAMOTIDINE 20 MG TABLET PO SCH (09:00)
[2017-11-12] MEDS ORDERED: amLODIPine 5 MG TABLET PO SCH (09:00)
[2017-11-12] MEDS ORDERED: POLYETHYLENE GLYCOL 3350 17 GM PACKET PO SCH (09:00)
[2017-11-12] MEDS ORDERED: METHADONE 5 MG TABLET PO SCH (09:00)
[2017-11-12] MEDS ORDERED: TEMAZEPAM 15 MG CAPSULE PEG PRN (09:11)
[2017-11-12] MEDS: FAMOTIDINE 20 MG TABLET PEG SCH (10:02)
[2017-11-12] MEDS: METHADONE 5 MG TABLET PEG SCH ×2 (10:02→21:40)
[2017-11-12] MEDS: amLODIPine 5 MG TABLET PEG SCH (10:03)
[2017-11-12] MEDS: POLYETHYLENE GLYCOL 3350 17 GM PACKET PEG SCH (10:07)
[2017-11-12] MEDS: LIDOCAINE PATCH 5% TOP SCH (10:07)
[2017-11-12] MEDS ORDERED: guaiFENesin 100 MG/5 ML UDC PEG PRN (11:39)
[2017-11-12] MEDS ORDERED: MORPHINE 2 MG/ML SYRINGE IVP PRN (12:00)
[2017-11-12 12:12] LABS: INR 1.1 (0.8-1.2); PT - PROTHROMBIN TIME 12.6 secs (9.9-12.6)
--- NOTE | 2017-11-12 12:15 | CONSULTATION NOTE ---
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 She was found on CT to have increased large neck ligament mass from baseline, new left-sided pleural-based masses and significantly large left pleural effusion as well as new right lung pulmonary nodules and new mediastinal lymphadenopathy. She was admitted for treatment with antibiotics for presumed healthcare associated pneumonia, as well as possible thoracentesis. She has been on immunotherapy, pembrolizumab, with increasing side effects after failing standard chemotherapy. This is actually her third round of head and neck cancer. Did confirm with Dr. Robledo, her information her note, which was if she did progress, as they were planning to do CT scan follow-up, she would be more appropriate as a hospice candidate. Did speak with her about the findings on the CT scan, and feels reasonable at this point to proceed with plans for hospice. Did speak with patient, she is aware of progressive disease found on the scans, she does feel she is done with treatment, is feeling quite terrible. She has had progressive pain, has been challenging as she has tolerated opioids poorly previously with severe nausea and vomiting. She has been started on methadone and has received morphine, she does have some underlying nausea, but this could be multifactorial in origin including the antibiotics. Of note her foot is most difficult at this point, as she is having increased trouble clearing her secretions, is needing trach suctioning which is new, and is having some difficulty with thickened, ramsey, blood-tinged sputum. Her neck mass, as well as her area around her fistula, has continued to increase in size seems to be tumor at this point. 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 Now confirmed on CT scan increased neck mass, new left-sided pleural-based masses, new left pleural effusion as well as new right lung pulmonary nodules. She is also thought to have most likely health care acquired pneumonia, on antibiotics. She did receive her pembrolizamub, this last week. Social History - Living Situation Living arrangement: At home Living Situation: With spouse/s.o., With family (Daughter Natali is her primary caregiver, she tries to stay independently as much as possible. Her has fairly advanced Alzheimer's and is cared for by her daughter as well) Medications/Allergies - Medications Active Medication List: Active Medications Acetaminophen (Tylenol) 650 mg PEG Q4HR PRN PRN Reason: Pain or Fever > 38C (100.4F) Albuterol/Ipratropium (Duoneb) 3 ml INH RTQID [facility] Amlodipine Besylate (Norvasc) 10 mg PEG DAILY [facility] Last Admin: 11/12/17 10:03 Dose: 10 mg Atenolol (Tenormin) 50 mg PEG BID [facility] Last Admin: 11/12/17 10:02 Dose: 50 mg Famotidine (Pepcid) 20 mg PEG DAILY [facility] Last Admin: 11/12/17 10:02 Dose: 20 mg Fluconazole (Diflucan) 100 mg PEG Q7D [facility] Last Admin: 11/12/17 03:05 Dose: 100 mg Gabapentin (Neurontin) 300 mg PEG 0900,1200 [facility] Last Admin: 11/12/17 10:03 Dose: 300 mg Gabapentin (Neurontin) 600 mg PEG 1800,2200 [facility] Guaifenesin (Robitussin Liquid) 300 mg PEG Q6HR PRN PRN Reason: Cough Sodium Chloride (Normal Saline 0.9%) 1,000 mls @ 40 mls/hr IV .Q25H [facility] Last Admin: 11/11/17 23:53 Dose: 40 mls/hr Aztreonam 2 gm/ Sodium (Chloride) 100 mls @ 100 mls/hr IV Q8H [facility] Last Admin: 11/12/17 10:03 Dose: 100 mls/hr Lansoprazole (Prevacid) 15 mg PEG BID PRN PRN Reason: HEARTBURN Levothyroxine Sodium (Synthroid) 150 mcg PEG QDAC [facility] Last Admin: 11/12/17 07:02 Dose: 150 mcg Lidocaine (Lidoderm Patch) 1 patch TOP DAILY [facility] Last Admin: 11/12/17 10:07 Dose: 1 patch Lisinopril (Zestril) 40 mg PEG BID [facility] Last Admin: 11/12/17 10:01 Dose: 40 mg Methadone HCl () 5 mg PEG BID [facility] Last Admin: 11/12/17 10:02 Dose: 5 mg Morphine Sulfate (Morphine) 2 mg IVP Q2HR PRN PRN Reason: PAIN 8 - 10 Ondansetron HCl (Zofran Inj) 4 mg IVP Q6HR PRN PRN Reason: Nausea / Vomiting Last Admin: 11/12/17 07:03 Dose: 4 mg Ondansetron HCl (Zofran Odt) 4 mg TL Q6HR PRN PRN Reason: Nausea / Vomiting Last Admin: 11/12/17 10:13 Dose: 4 mg Polyethylene Glycol (Miralax) 17 gm PEG DAILY PRN PRN Reason: Constipation Polyethylene Glycol (Miralax) 17 gm PEG DAILY [facility] Last Admin: 11/12/17 10:07 Dose: Not Given Prochlorperazine Maleate (Compazine Supp) 12.5 - 25 mg WA Q8HR PRN PRN Reason: Nausea / Vomiting Sodium Chloride (Normal Saline Flush 0.9%) 10 ml IVP PRN PRN PRN Reason: NEEDED PER PROVIDER ORDERS Last Admin: 11/12/17 03:07 Dose: 10 ml Sodium Chloride (Normal Saline Flush 0.9%) 10 ml IVP 0100,0900,1700 [facility] Last Admin: 11/12/17 10:07 Dose: Not Given Temazepam (Restoril) 15 mg PEG QPM PRN PRN Reason: Insomnia Atenolol [Tenormin] 50 mg PEG BID 11/30/13 Lisinopril 40 mg PEG BID 12/17/16 amLODIPine [Norvasc] 10 mg PO DAILY 05/28/17 Acetaminophen 500 - 1,000 mg PEG TID PRN 06/04/17 Omeprazole [PriLOSEC] 20 mg PEG DAILY 09/20/17 Fluconazole [Diflucan] 100 mg PEG TH 10/12/17 Gabapentin 600 mg PEG QID 10/12/17 Levothyroxine [Synthroid] 150 mcg PO QDAC 11/12/17 - Allergies Allergies/Adverse Reactions: Allergies Allergy/AdvReac Type Severity Reaction Status Date / Time avocado Allergy Emesis Verified 09/01/17 16:32 mirtazapine AdvReac Mild Dizziness Verified 11/12/17 11:12 fentanyl AdvReac Nausea Verified 09/03/17 18:40 oxycodone AdvReac Nausea Verified 09/03/17 18:40 Review of Systems - Constitutional Constitutional: reports: Fatigue - Ears, Nose & Throat Ears, Nose & Throat: reports: Hearing loss (mild), Other (Has had ongoing challenges with candidiasis, has been on weekly Diflucan to try and manage.) - Cardiovascular Cardiovascular: reports: Decr. exercise tolerance. denies: Chest pain - Respiratory Respiratory: reports: Cough, Sputum production (thickened and more difficult to manage; needing trach suctioning), SOB at rest, SOB with exertion - Gastrointestinal Gastrointestinal: reports: Other (reports hungery; on 5-6 cans feeding at home- gravity feed) - Musculoskeletal Musculoskeletal: reports: Muscle aches, Stiffness, Limited range of motion ( left hip severe DJD) - Integumentary Integumentary: reports: Other (more tumor growth at fistula/surgical site) - Neurological Neurological: reports: General weakness, Headache, Other (Increased difficulty communicating with electrolarynx, is writing) - Psychiatric Psychiatric: reports: Depression (Worried about being a burden on her daughter and her family.) - Endocrine Endocrine: reports: Hyperthyroidism - Hematologic/Lymphatic Hematologic/Lymphatic: reports: Anemia, Recurrent infections (recently treated for pneumonia) - All Other Systems All Other Systems: reports: Reviewed and negative Physical Exam - Vital Signs Vital Signs: Vital Signs x48h Temp Pulse Resp BP Pulse Ox 11/12/17 08:08 36.7 C 84 18 140/63 H 95 - Physical Exam General Appearance: positive: Mild distress, Anxious Eyes Bilateral: positive: Normal inspection ENT: positive: Other (oral candidiasis) Neck: positive: Other (Much more pronounced swelling on the right side of her neck and increasing tumor mass; increased pressure on her liver NG tube, as well as increased tumor noted along the incision and fistula site on left.) Cardiovascular: positive: Systolic murmur Respiratory: positive: Other (diminished left; right with rhonchi cleared after suctioning) Abdomen: positive: Soft, Other (PEG tube exit site without s/s of infection) Skin: positive: Pallor, Dryness Extremities: positive: No pedal edema, Other (in bed on exam) Neurologic/Psychiatric: positive: Oriented x3 (but admits to getting overwhelmed and difficulty remembering things), Depressed mood/affect Palliative Care - POLST Patient has POLST: Yes POLST Status: DNR, Selective Treatment Pain: Pain worsening, Location (right neck area and pressure in head), Comment ( Has been managed on increasing gabapentin, as well as intermittent acetaminophen. She also has gotten some relief with topical lidocaine patches on the right side and neck. Patient has been initiated on methadone 5 mg twice daily, and has so far tolerated the morphine for breakthrough pain. Her past experiences with opioids have been severe nausea and vomiting.) Tiredness/Fatigue: Severe (7-10) Drowsiness/Sedation: Moderate (4-6) Nausea: Moderate (4-6) Depression: Moderate (4-6) (Patient was trialed on mirtazapine, she did not tolerated it well. We did do a rechallenge last week which she had severe symptoms of confusion and felt poorly on it. Should be listed as an allergy.) Anxiety: Moderate (4-6) Dyspnea: Moderate (4-6) Constipation: Yes, Opoid induced, Managed Feelings of wellbeing/Perceived Quality of Life: Poor, Worsening Performance Status: Patient has previously been independent in ambulation, needing some assistance with dressing support but also has been independent in doing her tube feedings. She reports she is still able to walk, though she does appear quite weak and is willing to consider hospital bed at this point - Palliative Care Discussion: Patient and I have had long-term relationship since [id number], was able to speak with her though she is not able to verbalize much. She does have understanding of the seriousness of her condition, she is feeling quite badly for her daughter Natali and family needing to be part of the end of her life care. She has been quite independent up to this point in time. She is feeling quite terrible, she does want to return home, she does understand in the context of the team hospice. We did review this, as well as I reviewed it on the phone later with her daughter Natali. Patient is somewhat anxious with her increased difficulty with secretions and managing at home. Results - Lab Results Lab results reviewed: Yes Fish Bones: 11/12/17 07:28 11/12/17 07:28 Lab and Imaging Results: Lab Results x24hrs 18 11/12/17 Range/Units 07:28 07:28 WBC 14.1 H (4.8-10.8) x10^3/uL RBC 3.95 L (4.20-5.40) 10^6/uL Hgb 10.8 L (12.0-16.0) g/dL Hct 33.1 L (37.0-47.0) % MCV 83.7 (81.0-99.0) fL MCH 27.4 (27.0-31.0) pg MCHC 32.7 (32.0-36.0) g/dL RDW 14.5 (12.0-15.0) % Plt Count 302 (130-450) 10^3/uL MPV 6.3 L (7.9-10.8) fL Sodium 131 L (135-145) mmol/L Potassium 4.5 (3.5-5.0) mmol/L Chloride 95 L (101-111) mmol/L Carbon Dioxide 28 (21-32) mmol/L Anion Gap 8.0 (6-13) BUN 12 (6-20) mg/dL Creatinine 0.4 (0.4-1.0) mg/dL Estimated GFR (MDRD) 153 (>89) Glucose 88 (70-100) mg/dL Calcium 7.7 L (8.5-10.3) mg/dL Impression and Recommendations - Palliative Care Impression: This is an 81-year-old woman with hypopharyngeal carcinoma with now known progressive disease with metastatic disease in her lungs, as well as metastases to T2. She presents with increased difficulty managing her secretions, increased pain, and at this point goals of care are transitioning to hospice. Concern regarding judgment of her symptoms long-term, with increasing tumor burden and pressure, family will need to be trained in suctioning as well as patient more stable. Recommendations/Counseling Done: 1.Left pleural effusion. Follow-up with hospitalist, at this point awaiting to see if possible to drain and improve respiratory status prior to discharge home and transition to hospice. 2. Respiratory secretions. Did speak with both the nurse and respiratory therapist regarding patient's needs for transition home. Follow-up with hospice will need aerolized humidity, as well as suction supplies. Reviewed need to train family at bedside as well; need to manage at home. We will also need to preorder "fishes" normal saline. Of note, when patient has vomiting, she does leak through her fistula adding to her aspiration risk. 3. Pain of neoplastic origin. Patient has been titrated up on her gabapentin, there is some room for further titration up. Patient has been started on methadone 5 mg twice daily, the hope is she will tolerate this. Will be of concern if able to tolerate morphine given past experiences. 4. Protein calorie nutrition. Patient has been holding her weight between 100 -105.Has been using gravity drainage with tube feedings, would encourage continued to do bolus feedings as not to add the complexity at home. Is to see dietitian to start as soon as possible, patient does complain of feeling hungry. 5. Oral candidiasis. Patient has been maintained on weekly Diflucan with some improvement, she has dislikes the nystatin swish and swallow. If she is on antibiotics may need to transition this to daily. 6. Depression. Patient did not tolerate re-challenging of mirtazapine, at this point in time but suggests just interdisciplinary support via transition to hospice with social work and digital sales executive. Patient does have significant akua community, and is able to express this of comfort for her. 7. Goals of care. Patient to transition to hospice, this was discussed with her daughter Natali, Dr. Robledo, Dr. Bain. Goal is to discharge in 1-2 days after patient is stable as possible, and equipment set up. [id number] Addendum; did follow-up with patient, she is feeling much better after her thoracentesis with removal of 1100 mils. She is currently self administering food and fluids which has improved her nausea. She is quite surprised how much better she feels, did not realize she felt so poorly. She does report it is quite a relief as far as having a plan in going home for end-of-life care. She is concerned about Natali, but is feeling confident that she will be able to manage. She is expecting a follow-up visit from her remote broadcast technician tomorrow. Time Spent: 75 minutes with >50% of this done in counseling and coordination of care regarding patient's transition to hospice and anticipatory guidance and symptom management.
[2017-11-12] MEDS: IPRATROPIUM/ALBUTEROL 3 ML NEB INH SCH ×2 (13:15→15:30)
--- NOTE | 2017-11-12 15:38 | PROVIDER PROGRESS NOTE ---
Subjective - Prog Note Date Prog Note Date: 11/12/17 Prog Note Time: 13:45 - Subjective Pt reports feeling: No change (The patient is short of breath and has poor appetite. She has been feeling weaker and has been declining overall for the last couple of weeks. Her pain has been fairly well-managed.) Current Medications - Current Medications Current Medications: Acetaminophen, amlodipine, atenolol, aztreonam, famotidine, fluconazole, gabapentin, guaifenesin, DuoNeb, lansoprazole, levothyroxine, lidocaine patch, lisinopril,Methadone, mirtazapine, morphine, ondansetron, polyethylene glycol, Compazine, sodium chloride, temazepam Objective - Vital Signs/Intake & Output Reviewed Vital Signs: Yes Vital Signs: Vital Signs x48h Temp Pulse Resp BP Pulse Ox 11/12/17 13:00 36.7 C 82 18 130/60 94 11/12/17 08:08 36.7 C 84 18 140/63 H 95 Intake & Output: Intake & Output 11/09/17 11/10/17 11/11/17 11/12/17 23:59 23:59 23:59 23:59 Intake Total 280 Output Total 150 1100 Balance -150 -820 - Objective General Appearance: positive: No acute distress, Alert, Anxious Eyes Bilateral: positive: Normal inspection, PERRL, EOMI, No lid inflammation, Conjunctivae nml, No scleral icterus ENT: positive: ENT inspection nml, No signs of dehydration, Other (The patient has a tracheostomy in place.) Neck: positive: Thyroid nml, No JVD, Trachea midline. negative: Thyromegaly ( The patient has a tracheostomy in place and signs of previous surgical work in her neck.) Respiratory: positive: Chest non-tender, No respiratory distress, Breath sounds nml. negative: Wheezes, Rales, Rhonchi Cardiovascular: positive: Regular rate & rhythm, No murmur, No gallop Abdomen: positive: Non-tender, No organomegaly, Nml bowel sounds, No distention. negative: Guarding, Rebound Back: positive: Nml inspection. negative: CVA tenderness (R), CVA tenderness (L ) Skin: positive: Color nml, No rash, Warm, Dry. negative: Cyanosis Extremities: positive: Non-tender, Full ROM, Nml appearance, No pedal edema Neurologic/Psychiatric: positive: Oriented x3, CN's nml (2-12), Motor nml, Sensation nml, Mood/affect nml - Lab Results Fish Bones: 11/12/17 07:28 11/12/17 07:28 Other Labs: Lab Results x24hrs 11/12/17 11/12/17 11/12/17 Range/Units 11:42 07:28 07:28 WBC 14.1 H (4.8-10.8) x10^3/uL RBC 3.95 L (4.20-5.40) 10^6/uL Hgb 10.8 L (12.0-16.0) g/dL Hct 33.1 L (37.0-47.0) % MCV 83.7 (81.0-99.0) fL MCH 27.4 (27.0-31.0) pg MCHC 32.7 (32.0-36.0) g/dL RDW 14.5 (12.0-15.0) % Plt Count 302 (130-450) 10^3/uL MPV 6.3 L (7.9-10.8) fL PT 12.6 (9.9-12.6) secs INR 1.1 (0.8-1.2) APTT 23.5 L (24.9-33.3) secs Sodium 131 L (135-145) mmol/L Potassium 4.5 (3.5-5.0) mmol/L Chloride 95 L (101-111) mmol/L Carbon Dioxide 28 (21-32) mmol/L Anion Gap 8.0 (6-13) BUN 12 (6-20) mg/dL Creatinine 0.4 (0.4-1.0) mg/dL Estimated GFR (MDRD) 153 (>89) Glucose 88 (70-100) mg/dL Calcium 7.7 L (8.5-10.3) mg/dL - Diagnostic Imaging Diagnostic Imaging Results: positive: Final report reviewed Diagnostic Imaging Comments: EXAM: CT CHEST EXAM DATE: 11/11/2017 07:56 PM. CLINICAL HISTORY: Left sided pleural effusion, leukocytosis. COMPARISONS: Chest CT 08/23/2017. TECHNIQUE: Routine helical CT imaging was performed through the chest. IV contrast: 80 ML Isovue 300. Reconstructions: Coronal and sagittal. In accordance with CT protocol optimization, one or more of the following dose reduction techniques were utilized for this exam: automated exposure control, adjustment of mA and/or KV based on patient size, or use of iterative reconstructive technique. FINDINGS: Increased size of the large neck mass occluding the airway and encasing neck vessels. The mass measures 8.8 x 10.7 cm. Patient has a tracheostomy tube. The left subclavian artery appears mostly occluded, appears similar to the prior. High-grade stenosis with consultation seen at the proximal common carotid artery, unchanged. No thoracic aortic aneurysm or dissection. Prominent heart size. Increased paratracheal lymphadenopathy measuring 1.3 cm. Subcarinal lymphadenopathy measures 1.1 cm , increased. Large left pleural effusion is new. There is passive atelectasis with consolidation at the left upper lobe and left lower lobe. Pneumonia not excluded. Multiple new pleural- based masses seen on the left side, the largest is seen posteriorly measuring 4.4 x 2.3 cm most concerning for pleural metastasis. Left apex fibrosis again noted. New right upper lobe pulmonary nodule measures 7 mm. New right middle lobe pulmonary nodule measures 5 mm. Mild right base atelectasis. There is debris within the trachea and fluid in the bilateral bronchi , left greater than right. No acute bone findings are seen. 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 In the upper abdomen, status post cholecystectomy without bile duct dilatation. IMPRESSION: 1. Increased large neck malignant mass as described above. 2. Multiple new left-sided pleural-based masses concerning for pleural metastasis. 3. New large left pleural effusion. Left passive atelectasis. Pneumonia not excluded. 4. New right lung pulmonary nodules most concerning for metastasis. 5. New mediastinal lymphadenopathy concerning for metastasis. 6. There is debris within the trachea and fluid in the bilateral bronchi, left greater than right. 6. See the remainder of the findings as above. EXAM: CHEST RADIOGRAPHY EXAM DATE: 11/11/2017 04:43 PM. CLINICAL HISTORY: Dyspnea. COMPARISON: 10/04/2017. TECHNIQUE: 1 view. FINDINGS: Lungs/Pleura: Large left pleural effusion now seen, increased compared to prior. Left basilar consolidation is also increased. Unchanged coarse linear right basilar opacities , likely reflecting atelectasis and scarring. No new right-sided consolidation. No pneumothorax. Mediastinum: Heart size and mediastinum appear unchanged. Atheromatous calcification noted aortic arch. Other: Stable position of chest port catheter. IMPRESSION: 1. Increasing left-sided pleural effusion now large. 2. Left lower lung consolidation is also increased, a component of which likely reflects compressive atelectasis. Underlying infection or other process cannot be excluded. Assessment/Plan - Problem List (1) Laryngeal cancer Impression: The mass in the patient's neck is larger on CT than the previous scan a month ago. She also has multiple new masses throughout her lungs. I had a long discussion with the patient and her family and they are now electing for hospice care. (2) Lung metastases Impression: Mostly in the left lung but also in the right. The left lung also has a large amount of effusion and 1100 cc were removed today via thoracentesis. Unfortunately it appears as if the patient will continue to have tumors in her lungs and will likely from complications of respiratory failure secondary to the laryngeal cancer metastases in her lungs. Continue present care. (3) Malnutrition Impression: The patient has a PEG tube and is receiving Jevity per nutrition. Continue present care. (4) Pleural effusion Impression: Large pleural effusion on the left lung was removed today, radiology notes 1100 cc were removed. Continue present care. (5) Pneumonia Impression: Likely postobstructive. We will monitor the patient address any infectious processes that we find. Qualifiers: Pneumonia type: due to unspecified organism Laterality: left Lung location: unspecified part of lung Qualified Code(s): J18.9 - Pneumonia, unspecified organism (6) HTN (hypertension) Impression: Well-managed, continue home care. Qualifiers: Hypertension type: essential hypertension Qualified Code(s): I10 - Essential (primary) hypertension
--- NOTE | 2017-11-12 16:00 | Ultrasound Report ---
ULTRASOUND-GUIDED THORACENTESIS: 11/12/2017 CLINICAL INDICATION: Left effusion with atelectasis, respiratory distress. FINDINGS: Following obtaining informed consent, a suitable site in the patient's left posterior thorax was selected with ultrasound. The skin was prepped and draped in the usual sterile fashion. The skin and soft tissues were anesthetized with lidocaine. A [id number] catheter was inserted into the left pleural space, and approximately 1100 mL of fluid was removed without difficulty. The patient tolerated the procedure well. No immediate complications. IMPRESSION: SUCCESSFUL ULTRASOUND-GUIDED LEFT THORACENTESIS, YIELDING APPROXIMATELY 1100 ML OF FLUID. TD: 11/12/2017 15:59
[2017-11-12] MEDS ORDERED: LIDOCAINE 1% 50 ML MDV TD ONE (18:20)
[2017-11-12] MEDS ORDERED: MIRTAZAPINE 15 MG TABLET PO SCH (21:00)
[2017-11-13] MEDS: IPRATROPIUM/ALBUTEROL 3 ML NEB INH SCH ×5 (00:05→17:00)
[2017-11-13] MEDS: AZTREONAM 2 GM in SODIUM CHLORIDE 0.9% MINIBAG 100 ML IV SCH ×2 (00:16→09:04)
[2017-11-13] MEDS: SODIUM CHLORIDE FLUSH 0.9% 10 ML SYRINGE IVP SCH ×3 (00:18→17:47)
[2017-11-13 06:24] LABS: HGB - HEMOGLOBIN 10.5 g/dL (12.0-16.0); MEAN CORPUSCULAR HEMOGLOBIN 26.9 pg (27.0-31.0); MEAN CORPUSCULAR HGB CONC 32.1 g/dL (32.0-36.0); MEAN CORPUSCULAR VOLUME 83.7 fL (81.0-99.0); MEAN PLATELET VOLUME 6.9 fL (7.9-10.8); RED BLOOD COUNT 3.91 10^6/uL (4.20-5.40); RED CELL DISTRIBUTION WIDTH 14.6 % (12.0-15.0); WHITE BLOOD COUNT 14.4 x10^3/uL (4.8-10.8)
[2017-11-13] MEDS: SODIUM CHLORIDE 0.9% 1,000 ML IV SCH (06:25)
[2017-11-13] MEDS: LEVOTHYROXINE 75 MCG TABLET PEG SCH (06:26)
[2017-11-13] MEDS ORDERED: MIN OIL/DIMETHICON/COCONUT OIL 92 GM TUBE TOP PRN (06:31)
[2017-11-13 06:38] LABS: ALBUMIN 2.4 g/dL (3.2-5.5); ALBUMIN/GLOBULIN RATIO 0.7 (1.0-2.2); BILIRUBIN,TOTAL 0.7 mg/dL (0.2-1.0); CALCIUM 7.2 mg/dL (8.5-10.3); CREATININE 0.4 mg/dL (0.4-1.0); MAGNESIUM 1.7 mg/dL (1.7-2.8); PHOSPHORUS 1.9 mg/dL (2.5-4.6); TOTAL PROTEIN 5.7 g/dL (6.7-8.2)
[2017-11-13] MEDS: ONDANSETRON 4 MG/2 ML VIAL IVP PRN (07:54)
[2017-11-13] MEDS ORDERED: LANSOPRAZOLE 15 MG CAPSULE PEG PRN (08:00)
[2017-11-13] MEDS ORDERED: LORazepam 2 MG/ML VIAL IVP SCH (08:32)
[2017-11-13] MEDS ORDERED: LORazepam 2 MG/ML VIAL IVP PRN (08:32)
[2017-11-13] MEDS: POLYETHYLENE GLYCOL 3350 17 GM PACKET PEG SCH (09:07)
[2017-11-13] MEDS: METHADONE 5 MG TABLET PEG SCH ×2 (09:09→21:59)
[2017-11-13] MEDS: amLODIPine 5 MG TABLET PEG SCH (09:17)
[2017-11-13] MEDS: LISINOPRIL 20 MG TABLET PEG SCH (09:17)
[2017-11-13] MEDS: FAMOTIDINE 20 MG TABLET PEG SCH (09:17)
[2017-11-13] MEDS: ATENOLOL 25 MG TABLET PEG SCH (09:17)
[2017-11-13] MEDS: GABAPENTIN 300 MG CAPSULE PEG SCH ×4 (09:18→21:54)
[2017-11-13] MEDS: LIDOCAINE PATCH 5% TOP SCH (09:18)
[2017-11-13] MEDS ORDERED: AMOX/CLAV 875 MG/125 MG TABLET PO SCH (10:00)
--- NOTE | 2017-11-13 16:40 | PROVIDER PROGRESS NOTE ---
Subjective - Prog Note Date Prog Note Date: 11/13/17 Prog Note Time: 16:29 - Subjective Pt reports feeling: No change Subjective: Patient states she does not feel any better after thoracentesis. Still has secretions and coughing. Denies any chest pain. Feels weak. She feels anxious this am. Current Medications - Current Medications Current Medications: Active Medications Generic Name Dose Route Start Last Admin Trade Name Freq PRN Reason Stop Dose Admin Acetaminophen 640 mg 11/13/17 16:26 11/13/17 16:41 Tylenol PEG 640 mg Q4HR PRN Administration Pain or Fever > 38C (100.4F) Albuterol/Ipratropium 3 ml 11/12/17 12:00 11/13/17 13:40 Duoneb INH 3 ml RTQID LESLEE Administration Amlodipine Besylate 10 mg 11/12/17 09:00 11/13/17 09:17 Norvasc PEG 10 mg DAILY LESLEE Administration Atenolol 50 mg 11/11/17 21:00 11/13/17 09:17 Tenormin PEG 50 mg BID LESLEE Administration Famotidine 20 mg 11/12/17 09:00 11/13/17 09:17 Pepcid PEG 20 mg DAILY LESLEE Administration Fluconazole 100 mg 11/12/17 02:00 11/12/17 03:05 Diflucan PEG 100 mg Q7D LESLEE Administration Gabapentin 300 mg 11/11/17 23:45 11/13/17 11:23 Neurontin PEG 300 mg 0900,1200 LESLEE Administration Gabapentin 600 mg 11/12/17 18:00 11/12/17 21:41 Neurontin PEG 600 mg 1800,2200 LESLEE Administration Guaifenesin 300 mg 11/12/17 11:39 Robitussin Liquid PEG Q6HR PRN Cough Sodium Chloride 1,000 mls @ 40 mls/hr 11/11/17 21:00 11/13/17 06:25 Normal Saline 0.9% IV 40 mls/hr .Q25H LESLEE Administration Piperacillin Sod/Tazobactam 100 mls @ 200 mls/hr 11/13/17 17:00 Sod 3.375 gm/ Sodium Chloride IV 11/13/17 17:29 ONCE ONE Piperacillin Sod/Tazobactam 100 mls @ 25 mls/hr 11/13/17 21:00 Sod 3.375 gm/ Sodium Chloride IV Q8H LESLEE Lansoprazole 15 mg 11/13/17 08:00 Prevacid PEG BID PRN HEARTBURN Levothyroxine Sodium 150 mcg 11/12/17 07:00 11/13/17 06:26 Synthroid PEG 150 mcg QDAC LESLEE Administration Lidocaine 1 patch 11/12/17 09:00 11/13/17 09:18 Lidoderm Patch TOP Not Given DAILY LESLEE Lisinopril 40 mg 11/11/17 21:00 11/13/17 09:17 Zestril PEG 40 mg BID LESLEE Administration Lorazepam 0.5 mg 11/13/17 16:44 Ativan PEG Q6H PRN Anxiety Methadone HCl 5 mg 11/12/17 09:00 11/13/17 09:09 PEG Not Given BID [facility] Mineral Oil 1 applic 11/13/17 06:31 Cavilon TOP PRN PRN Skin Care Morphine Sulfate 10 mg 11/13/17 16:44 Roxanol PEG Q2HR PRN PAIN Ondansetron HCl 4 mg 11/11/17 20:48 11/13/17 07:54 Zofran Inj IVP 4 mg Q6HR PRN Administration Nausea / Vomiting Ondansetron HCl 4 mg 11/12/17 07:30 11/12/17 10:13 Zofran Odt TL 4 mg Q6HR PRN Administration Nausea / Vomiting Polyethylene Glycol 17 gm 11/12/17 07:26 Miralax PEG DAILY PRN Constipation Polyethylene Glycol 17 gm 11/12/17 09:00 11/13/17 09:07 Miralax PEG Not Given DAILY [facility] Prochlorperazine Maleate 12.5 - 25 mg 11/12/17 07:26 Compazine Supp NM Q8HR PRN Nausea / Vomiting Sodium Chloride 10 ml 11/11/17 20:48 11/12/17 12:36 Normal Saline Flush 0.9% IVP 10 ml PRN PRN Administration NEEDED PER PROVIDER ORDERS Sodium Chloride 10 ml 11/12/17 01:00 11/13/17 07:55 Normal Saline Flush 0.9% IVP 10 ml 0100,0900,1700 LESLEE Administration Temazepam 15 mg 11/12/17 09:11 Restoril PEG QPM PRN Insomnia Atenolol [Tenormin] 50 mg PEG BID 11/30/13 Lisinopril 40 mg PEG BID 12/17/16 amLODIPine [Norvasc] 10 mg PO DAILY 05/28/17 Acetaminophen 500 - 1,000 mg PEG TID PRN 06/04/17 Omeprazole [PriLOSEC] 20 mg PEG DAILY 09/20/17 Fluconazole [Diflucan] 100 mg PEG TH 10/12/17 Gabapentin 600 mg PEG QID 10/12/17 Levothyroxine [Synthroid] 150 mcg PO QDAC 11/12/17 Objective - Vital Signs/Intake & Output Reviewed Vital Signs: Yes Vital Signs: Vital Signs x48h Temp Pulse Pulse Resp BP Pulse Ox 11/13/17 15:27 36.8 C 96 20 113/46 L 95 11/13/17 13:40 92 18 11/13/17 13:00 36.8 C 84 20 118/46 L 100 11/13/17 09:45 96 15 Intake & Output: Intake & Output 11/10/17 11/11/17 11/12/17 11/13/17 23:59 23:59 23:59 23:59 Intake Total 470 1744 Output Total 150 1100 Balance -150 -630 1744 - Objective General Appearance: positive: Alert, Mild distress, Other (Cachectic) Eyes Bilateral: positive: Normal inspection, PERRL, EOMI, No lid inflammation, Conjunctivae nml, No scleral icterus ENT: positive: No signs of dehydration, Dry mucous membranes, Other (Trach with lots of secretions) Neck: positive: Nml inspection, Thyroid nml, No JVD, Trachea midline. negative : Thyromegaly, Lymphadenopathy (R), Lymphadenopathy (L) Respiratory: positive: Chest non-tender, No respiratory distress, Wheezes, Rhonchi Cardiovascular: positive: No murmur, No gallop, Tachycardia Abdomen: positive: Non-tender, No organomegaly, Nml bowel sounds, No distention. negative: Guarding, Rebound Back: positive: Nml inspection. negative: CVA tenderness (R), CVA tenderness (L ) Skin: positive: Color nml, No rash. negative: Cyanosis, Diaphoresis, Pallor Extremities: positive: Non-tender, Full ROM, Nml appearance, Pedal edema Neurologic/Psychiatric: positive: Oriented x3, CN's nml (2-12), Motor nml, Sensation nml - Lab Results Fish Bones: 11/13/17 05:42 11/13/17 05:42 Other Labs: Lab Results x24hrs 11/13/17 11/13/17 Range/Units 05:42 05:42 WBC 14.4 H (4.8-10.8) x10^3/uL RBC 3.91 L (4.20-5.40) 10^6/uL Hgb 10.5 L (12.0-16.0) g/dL Hct 32.7 L (37.0-47.0) % MCV 83.7 (81.0-99.0) fL MCH 26.9 L (27.0-31.0) pg MCHC 32.1 (32.0-36.0) g/dL RDW 14.6 (12.0-15.0) % Plt Count 318 (130-450) 10^3/uL MPV 6.9 L (7.9-10.8) fL Sodium 130 L (135-145) mmol/L Potassium 3.7 (3.5-5.0) mmol/L Chloride 96 L (101-111) mmol/L Carbon Dioxide 25 (21-32) mmol/L Anion Gap 9.0 (6-13) BUN 11 (6-20) mg/dL Creatinine 0.4 (0.4-1.0) mg/dL Estimated GFR (MDRD) 153 (>89) Glucose 85 (70-100) mg/dL Calcium 7.2 L (8.5-10.3) mg/dL Phosphorus 1.9 L (2.5-4.6) mg/dL Magnesium 1.7 (1.7-2.8) mg/dL Total Bilirubin 0.7 (0.2-1.0) mg/dL AST 37 (10-42) IU/L ALT 61 H (10-60) IU/L Alkaline Phosphatase 83 (42-121) IU/L Total Protein 5.7 L (6.7-8.2) g/dL Albumin 2.4 L (3.2-5.5) g/dL Globulin 3.3 (2.1-4.2) g/dL Albumin/Globulin Ratio 0.7 L (1.0-2.2) Prealbumin 16 L (18-45) mg/dL - Diagnostic Imaging Diagnostic Imaging Results: positive: Final report reviewed Assessment/Plan - Problem List (1) Laryngeal cancer Impression: The mass in the patient's neck is larger on CT than the previous scan a month ago. She also has multiple new masses throughout her lungs. Patient and family have elected for hospice care and Hospice has met with the patient and her family Patient will be discharged home with hospice on 11/15/17 (2) Bacteremia Impression: Patients blood cultures are growing both gram negative and gram positive organisms Klebsiella Oxytoca and gram positive cocci with sputum positive for staph aureus Will change aztreonam to augmentin and start IV zosyn WBC improving No fevers Plan is for patient to be discharged to hospice on 11/15/17 if improving and stable Will await sensitivities (3) Lung metastases Impression: Mostly in the left lung but also in the right. The left lung also has a large amount of effusion and 1100 cc were removed via thoracentesis. Unfortunately it appears as if the patient will continue to have tumors in her lungs and will likely from complications of respiratory failure secondary to the laryngeal cancer metastases in her lungs. Patient states that she does not feel as though her breathing is improved at all today despite the thoracentesis Will continue treatment with nebs and abx (4) Malnutrition Impression: The patient has a PEG tube and is receiving Jevity per nutrition. Stable (5) Pleural effusion Impression: Large pleural effusion on the left lung was removed, radiology notes 1100 cc were removed. Continue present care. (6) Pneumonia Impression: Likely postobstructive. Patient was on Aztreonam and WBC had improved from 20.4 to 14.4 Patient still on 5L O2 via trach Respiratory cx growing staph areus susceptible to augmentin Stop aztreonam and start augmentin Will continue abx and wean down O2 Plan for patient to discharge home on 11/15/17 as long as she does improve and remains stable Qualifiers: Pneumonia type: due to unspecified organism Laterality: left Lung location: unspecified part of lung Qualified Code(s): J18.9 - Pneumonia, unspecified organism (7) HTN (hypertension) Impression: Well-managed, continue home care. Qualifiers: Hypertension type: essential hypertension Qualified Code(s): I10 - Essential (primary) hypertension
[2017-11-13] MEDS: ACETAMINOPHEN 160 MG/5 ML SUSP UDC PEG PRN (16:41)
[2017-11-13] MEDS ORDERED: MORPHINE SOL 10 MG/0.5 ML SYRINGE PEG PRN (16:44)
[2017-11-13] MEDS ORDERED: PIPERACILLIN/TAZOBACTAM 3.375 GM in SODIUM CHLORIDE 0.9% MINIBAG 100 ML IV ONE (17:00)
[2017-11-13] MEDS ORDERED: PIPERACILLIN/TAZOBACTAM 3.375 GM in SODIUM CHLORIDE 0.9% MINIBAG 100 ML IV SCH (21:00)
[2017-11-13] MEDS ORDERED: AMOX/CLAV 200 MG/28.5 MG/5 ML SYRINGE PEG SCH (21:00)
[2017-11-13] MEDS: AMOX/CLAV 200 MG/28.5 MG/5 ML SYRINGE PEG SCH (22:02)
[2017-11-14] MEDS: SODIUM CHLORIDE FLUSH 0.9% 10 ML SYRINGE IVP SCH ×3 (00:14→16:09)
[2017-11-14] MEDS: LEVOTHYROXINE 75 MCG TABLET PEG SCH (06:05)
[2017-11-14] MEDS: ACETAMINOPHEN 160 MG/5 ML SUSP UDC PEG PRN ×2 (06:05→18:26)
[2017-11-14 06:23] LABS: MEAN CORPUSCULAR HEMOGLOBIN 26.7 pg (27.0-31.0); MEAN CORPUSCULAR HGB CONC 31.9 g/dL (32.0-36.0); MEAN CORPUSCULAR VOLUME 83.7 fL (81.0-99.0); MEAN PLATELET VOLUME 6.6 fL (7.9-10.8); RED BLOOD COUNT 3.75 10^6/uL (4.20-5.40); RED CELL DISTRIBUTION WIDTH 14.6 % (12.0-15.0); WHITE BLOOD COUNT 13.4 x10^3/uL (4.8-10.8)
[2017-11-14 06:30] LABS: CALCIUM 6.7 mg/dL (8.5-10.3); CREATININE 0.3 mg/dL (0.4-1.0)
[2017-11-14] MEDS: IPRATROPIUM/ALBUTEROL 3 ML NEB INH SCH ×4 (07:21→19:00)
[2017-11-14] MEDS: SODIUM CHLORIDE 0.9% 1,000 ML IV SCH (10:45)
[2017-11-14] MEDS: AMOX/CLAV 200 MG/28.5 MG/5 ML SYRINGE PEG SCH ×2 (10:45→21:49)
[2017-11-14] MEDS: amLODIPine 5 MG TABLET PEG SCH (10:45)
[2017-11-14] MEDS: LISINOPRIL 20 MG TABLET PEG SCH ×2 (10:46→21:38)
[2017-11-14] MEDS: ATENOLOL 25 MG TABLET PEG SCH (10:46)
[2017-11-14] MEDS: POLYETHYLENE GLYCOL 3350 17 GM PACKET PEG SCH (10:47)
[2017-11-14] MEDS: METHADONE 5 MG TABLET PEG SCH ×2 (10:47→21:36)
[2017-11-14] MEDS: GABAPENTIN 300 MG CAPSULE PEG SCH ×5 (10:47→21:37)
[2017-11-14] MEDS: FAMOTIDINE 20 MG TABLET PEG SCH (10:47)
[2017-11-14] MEDS: LIDOCAINE PATCH 5% TOP SCH (10:52)
[2017-11-14] MEDS: LORazepam 0.5 MG TABLET PEG PRN (13:50)
--- NOTE | 2017-11-14 13:51 | CONSULTATION NOTE ---
Palliative Care Follow Up - Referral Referring Provider: Dr. Amina Ernandez Time of Visit: [id number] Referral setting: Hospitalized patient Referral Reason: Goals of Care - Information Sources Records reviewed: RN notes reviewed, Previous records reviewed History/Review of Systems obtained from: Patient Exam limitations: Clinical condition (patient with less ability to communicate; needing to use white board) Social History - Living Situation Living arrangement: At home Living Situation: With spouse/s.o. (has Alzheimers), With family (daughter Natali living with parents to be caregiver) Medications/Allergies - Medications Active Medication List: Active Medications Acetaminophen (Tylenol) 640 mg PEG Q4HR PRN PRN Reason: Pain or Fever > 38C (100.4F) Last Admin: 11/14/17 06:05 Dose: 640 mg Albuterol/Ipratropium (Duoneb) 3 ml INH RTQID [facility] Last Admin: 11/14/17 11:16 Dose: 3 ml Amlodipine Besylate (Norvasc) 2.5 mg PEG DAILY [facility] Last Admin: 11/14/17 10:45 Dose: 2.5 mg Amoxicillin/Clavulanate Potassium (Amox-Clav 200-28.5 Mg/5 Ml [place]) 800 mg PEG BID [facility] Last Admin: 11/14/17 10:45 Dose: 800 mg Atenolol (Tenormin) 50 mg PEG DAILY [facility] Last Admin: 11/14/17 10:46 Dose: 50 mg Famotidine (Pepcid) 20 mg PEG DAILY [facility] Last Admin: 11/14/17 10:47 Dose: 20 mg Fluconazole (Diflucan) 100 mg PEG Q7D [facility] Last Admin: 11/12/17 03:05 Dose: 100 mg Gabapentin (Neurontin) 300 mg PEG 0900,1200 [facility] Last Admin: 11/14/17 10:47 Dose: 300 mg Gabapentin (Neurontin) 600 mg PEG 1800,2200 [facility] Last Admin: 11/13/17 21:54 Dose: 600 mg Guaifenesin (Robitussin Liquid) 300 mg PEG Q6HR PRN PRN Reason: Cough Sodium Chloride (Normal Saline 0.9%) 1,000 mls @ 40 mls/hr IV .Q25H [facility] Last Admin: 11/14/17 10:45 Dose: 40 mls/hr Lansoprazole (Prevacid) 15 mg PEG BID PRN PRN Reason: HEARTBURN Levothyroxine Sodium (Synthroid) 150 mcg PEG QDAC [facility] Last Admin: 11/14/17 06:05 Dose: 150 mcg Lidocaine (Lidoderm Patch) 1 patch TOP DAILY [facility] Last Admin: 11/14/17 10:52 Dose: Not Given Lisinopril (Zestril) 10 mg PEG BID [facility] Last Admin: 11/14/17 10:46 Dose: 10 mg Lorazepam (Ativan) 0.5 mg PEG Q6H PRN PRN Reason: Anxiety Methadone HCl () 2.5 mg PEG BID [facility] Last Admin: 11/14/17 10:47 Dose: 2.5 mg Mineral Oil (Cavilon) 1 applic TOP PRN PRN PRN Reason: Skin Care Morphine Sulfate (Roxanol) 10 mg PEG Q2HR PRN PRN Reason: PAIN Ondansetron HCl (Zofran Inj) 4 mg IVP Q6HR PRN PRN Reason: Nausea / Vomiting Last Admin: 11/13/17 07:54 Dose: 4 mg Ondansetron HCl (Zofran Odt) 4 mg TL Q6HR PRN PRN Reason: Nausea / Vomiting Last Admin: 11/12/17 10:13 Dose: 4 mg Polyethylene Glycol (Miralax) 17 gm PEG DAILY PRN PRN Reason: Constipation Polyethylene Glycol (Miralax) 17 gm PEG DAILY [facility] Last Admin: 11/14/17 10:47 Dose: 17 gm Prochlorperazine Maleate (Compazine Supp) 12.5 - 25 mg CO Q8HR PRN PRN Reason: Nausea / Vomiting Sodium Chloride (Normal Saline Flush 0.9%) 10 ml IVP PRN PRN PRN Reason: NEEDED PER PROVIDER ORDERS Last Admin: 11/12/17 12:36 Dose: 10 ml Sodium Chloride (Normal Saline Flush 0.9%) 10 ml IVP 0100,0900,1700 [facility] Last Admin: 11/14/17 10:48 Dose: Not Given Temazepam (Restoril) 15 mg PEG QPM PRN PRN Reason: Insomnia Atenolol [Tenormin] 50 mg PEG BID 11/30/13 Lisinopril 40 mg PEG BID 12/17/16 amLODIPine [Norvasc] 10 mg PO DAILY 05/28/17 Acetaminophen 500 - 1,000 mg PEG TID PRN 06/04/17 Omeprazole [PriLOSEC] 20 mg PEG DAILY 09/20/17 Fluconazole [Diflucan] 100 mg PEG TH 10/12/17 Gabapentin 600 mg PEG QID 10/12/17 Levothyroxine [Synthroid] 150 mcg PO QDAC 11/12/17 - Allergies Allergies/Adverse Reactions: Allergies Allergy/AdvReac Type Severity Reaction Status Date / Time avocado Allergy Emesis Verified 09/01/17 16:32 mirtazapine AdvReac Mild Dizziness Verified 11/12/17 11:12 fentanyl AdvReac Nausea Verified 09/03/17 18:40 oxycodone AdvReac Nausea Verified 09/03/17 18:40 Review of Systems - Constitutional Constitutional: reports: Fatigue, Weight stable - Respiratory Respiratory: reports: Cough (improved; still needing intermittent suctioning but feeling it is managed) - Gastrointestinal Gastrointestinal: reports: Other (patient controlling feedings with bolus) - Neurological Neurological: reports: General weakness - Psychiatric Psychiatric: reports: Depression, Anxiety - Hematologic/Lymphatic Hematologic/Lymphatic: reports: Other (blood cultures postitive; treating pneumonia) Physical Exam - Vital Signs Vital Signs: Vital Signs x48h Temp Pulse Pulse Resp BP Pulse Ox 11/14/17 11:50 36.6 C 85 20 131/56 H 96 11/14/17 08:10 36.5 C 92 18 119/49 L 97 11/14/17 07:26 86 18 - Physical Exam General Appearance: positive: No acute distress Eyes Bilateral: positive: Other (baseline right eye drooping) ENT: positive: Other (oral candidiasis) Neck: positive: Other (less drainage noted from fistula today; right neck mass pressing on "michelle" tube) Respiratory: positive: No respiratory distress (breathing unlabored; no coughing during visit) Neurologic/Psychiatric: positive: Oriented x3 Palliative Care - POLST Patient has POLST: Yes POLST Status: DNR, Selective Treatment Pain: Pain improved, Location (right neck/shoulder; improved on lower dose of methadone) Tiredness/Fatigue: Moderate (4-6) Performance Status: Patient with poor activity tolerance, has mostly been bedbound since admit. Hospital bed and equipment been set up at home for tomorrow's discharge - Palliative Care Discussion: Patient looking forward to going home, discussed some anticipatory guidance regarding expectations in the future, patient really wants to focus on just enjoying the time she has left. Did discuss benefits of burdens and transitioning at end of life, including the topic of tube feedings. Currently patient is looking forward to some respite time at home but is aware of the seriousness of her illness. Is difficult to engage in extensive conversation given the limitations now for communication. Daughter not present, would like to defer completing POLST at a later date. Wants daughter to have information as well for anticipatory guidance, but given my experience with Natali best done in person, and may need to unfold as situation progresses. POLST but should be updated, to focus on comfort measures, but can update this later if needed with hospice. Results - Lab Results Lab results reviewed: Yes Fish Bones: 11/14/17 06:00 11/14/17 06:00 Lab and Imaging Results: Lab Results x24hrs 11/14/17 11/14/17 Range/Units 06:00 06:00 WBC 13.4 H (4.8-10.8) x10^3/uL RBC 3.75 L (4.20-5.40) 10^6/uL Hgb 10.0 L (12.0-16.0) g/dL Hct 31.4 L (37.0-47.0) % MCV 83.7 (81.0-99.0) fL MCH 26.7 L (27.0-31.0) pg MCHC 31.9 L (32.0-36.0) g/dL RDW 14.6 (12.0-15.0) % Plt Count 298 (130-450) 10^3/uL MPV 6.6 L (7.9-10.8) fL Sodium 130 L (135-145) mmol/L Potassium 3.5 (3.5-5.0) mmol/L Chloride 96 L (101-111) mmol/L Carbon Dioxide 26 (21-32) mmol/L Anion Gap 8.0 (6-13) BUN 11 (6-20) mg/dL Creatinine 0.3 L (0.4-1.0) mg/dL Estimated GFR (MDRD) 213 (>89) Glucose 90 (70-100) mg/dL Calcium 6.7 L (8.5-10.3) mg/dL Impression and Recommendations - Palliative Care Impression: This is an 81-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 She presented this hospitalization with a left pleural effusion, she is breathing better with the tapped of 1100 mils. She is responding to antibiotics, she is thinned secretions, less difficulty with cough, still needing some suctioning. Patient is scheduled to transition home tomorrow with hospice support. Recommendations/Counseling Done: 1.Pain of neoplastic origin. Patient is doing better on the lower dose of the methadone 2.5 mg twice daily and on her baseline gabapentin. Counseling done regarding tools for pain management, as well as managing for shortness of breath with morphine. Reassured hospice would review medications on admit, as Natali is not present for current appointment. Did [place] back around is still at home preparing for discharge. Reviewed need prescriptions prior to discharge for Lorazepam, methadone, and morphine as well as antibiotics. Discharge is scheduled for later in day, hospitalist aware 2. Respiratory secretions. Patient is doing better with management, they are thinned, she is using erythematous lysed humidity. Patient currently managing much better today, did initiate conversation regarding tube feedings and anticipatory guidance. Patient currently is planning to continue to point of comfort, again weighing benefits and burdens. She will be discharged on antibiotics to continue to treat her positive blood culture as well as her healthcare acquired pneumonia. She is feeling much better and is hoping to have some more time with her family, and enjoy the time she has left. 3. Advanced care planning. Patient would like to defer updating [facility] until Natali available, she does have a current POLST that is a DNAR, can be updated at hospice visit if needed. Time Spent: Time spent 30 minutes with greater than 50% of this done in counseling and anticipatory guidance follow-up regarding pain and symptom management and support
[2017-11-14] MEDS ORDERED: COD LIVER OIL/ZINC OXIDE 113 GM TUBE TOP PRN (15:13)
[2017-11-14] MEDS: SODIUM CHLORIDE FLUSH 0.9% 10 ML SYRINGE IVP PRN (17:56)
[2017-11-14] MEDS: ONDANSETRON 4 MG/2 ML VIAL IVP PRN (17:56)
--- NOTE | 2017-11-14 19:02 | PROVIDER PROGRESS NOTE ---
Subjective - Prog Note Date Prog Note Date: 11/14/17 Prog Note Time: 19:02 - Subjective Pt reports feeling: Improved Subjective: patient feels slightly better. She states that her breathing is easier. She denies any fevers or chills. She denies any chest pain. She states her anxiety is well controlled. Current Medications - Current Medications Current Medications: Atenolol [Tenormin] 50 mg PEG BID 11/30/13 Lisinopril 40 mg PEG BID 12/17/16 amLODIPine [Norvasc] 10 mg PO DAILY 05/28/17 Acetaminophen 500 - 1,000 mg PEG TID PRN 06/04/17 Omeprazole [PriLOSEC] 20 mg PEG DAILY 09/20/17 Fluconazole [Diflucan] 100 mg PEG TH 10/12/17 Gabapentin 600 mg PEG QID 10/12/17 Levothyroxine [Synthroid] 150 mcg PO QDAC 11/12/17 Microbiology 11/11/17 21:30 Blood Culture - Final Blood Klebsiella Oxytoca 11/11/17 21:30 Blood Culture - Preliminary Blood Medications Summary Discontinued Medications Acetaminophen (Tylenol) 640 mg PEG Q4HR PRN PRN Reason: Pain or Fever > 38C (100.4F) Last Admin: 11/14/17 18:26 Dose: 640 mg Acetaminophen Assessment Document 11/14/17 18:26 [facility] (Rec: 11/14/17 18:26 [facility] [id number]) Pain or Fever Assessment Pain Scale Used 0-10 Pain Intensity (0-10) 3 Fever No Re-Assess: Acetaminophen Effectiveness Document 11/14/17 19:26 [facility] (Rec: 11/14/17 19:43 [facility] [id number]) Effect on Pain or Fever Pain Scale Used 0-10 Pain Intensity (0-10) 0 Effective/Ineffective Effective Albuterol/Ipratropium (Duoneb) 3 ml INH RTQID [facility] Last Admin: 11/15/17 08:41 Dose: 3 ml Amlodipine Besylate (Norvasc) 10 mg PEG DAILY [facility] Last Admin: 11/13/17 09:17 Dose: 10 mg Amlodipine Besylate (Norvasc) 2.5 mg PEG DAILY [facility] Last Admin: 11/15/17 09:26 Dose: 2.5 mg Amoxicillin/Clavulanate Potassium (Augmentin 875/125) 1 tab PO BID [facility] Last Admin: 11/13/17 11:19 Dose: 1 tab Amoxicillin/Clavulanate Potassium (Amox-Clav 200-28.5 Mg/5 Ml Jo Ann) 800 mg PEG BID [facility] Last Admin: 11/15/17 09:29 Dose: 800 mg Atenolol (Tenormin) 50 mg PEG BID [facility] Last Admin: 11/13/17 09:17 Dose: 50 mg Comments: sbp 124 hr 103 Atenolol (Tenormin) 50 mg PEG DAILY [facility] Last Admin: 11/15/17 09:26 Dose: 50 mg Famotidine (Pepcid) 20 mg PEG DAILY [facility] Last Admin: 11/15/17 09:24 Dose: 20 mg Fluconazole (Diflucan) 100 mg PEG Q7D [facility] Last Admin: 11/12/17 03:05 Dose: 100 mg Gabapentin (Neurontin) 300 mg PEG 0900,1200 [facility] Last Admin: 11/15/17 09:25 Dose: 300 mg Gabapentin (Neurontin) 600 mg PEG 1800,2200 [facility] Last Admin: 11/14/17 21:37 Dose: 600 mg Sodium Chloride (Normal Saline 0.9%) 1,000 mls @ 40 mls/hr IV .Q25H [facility] Last Admin: 11/15/17 06:54 Dose: 40 mls/hr Medication Titration Document 11/15/17 06:54 TF (Rec: 11/15/17 06:55 TF [id number]) Titration Intake Container Volume 1,000 Elapsed Time 70h 9m Titration Dosing IV Rate 40 Increase/Decrease Started/Running Cumulative Dose Not Applicable Total Intake (Rx) 2,806 Volume Adjustment/Waste 0 Aztreonam 2 gm/ Sodium (Chloride) 100 mls @ 100 mls/hr IV Q8H [facility] Last Infusion: 11/13/17 11:18 Dose: 0 mls/hr Medication Titration Document 11/13/17 11:18 DL (Rec: 11/13/17 11:18 DL [id number]) Titration Intake Titration Intake 100 Cumulative Intake 100 Container Volume 0 Elapsed Time 7h 56m Titration Dosing IV Rate 0 Increase/Decrease Infused Cumulative Dose 0 Total Intake (Rx) 500 Volume Adjustment/Waste 0 Piperacillin Sod/Tazobactam (Sod 3.375 gm/ Sodium Chloride) 100 mls @ 200 mls/ hr IV ONCE ONE Stop: 11/13/17 17:29 Last Infusion: 11/13/17 18:20 Dose: 0 mls/hr Medication Titration Document 11/13/17 18:20 [facility] (Rec: 11/13/17 19:08 HDP [id number]) Titration Intake Titration Intake 100 Cumulative Intake 100 Container Volume 0 Elapsed Time 34m Titration Dosing IV Rate 0 Increase/Decrease Infused Cumulative Dose 0 Total Intake (Rx) 100 Volume Adjustment/Waste 0 Iopamidol (Isovue-300) 80 ml IVP ONCE ONE Stop: 11/11/17 19:51 Last Admin: 11/11/17 19:51 Dose: 80 ml Levothyroxine Sodium (Synthroid) 150 mcg PEG QDAC [facility] Last Admin: 11/15/17 06:54 Dose: 150 mcg Lidocaine (Lidoderm Patch) 1 patch TOP DAILY [facility] Last Admin: 11/14/17 10:52 Dose: Not Given Non-Admin Reason: Patient Refused Lidocaine HCl (Xylocaine 1%) 8 ml TD ONCE ONE Stop: 11/12/17 18:21 Last Admin: 11/12/17 18:23 Dose: 8 ml Lisinopril (Zestril) 40 mg PEG BID [facility] Last Admin: 11/13/17 09:17 Dose: 40 mg Lisinopril (Zestril) 10 mg PEG BID [facility] Last Admin: 11/15/17 09:25 Dose: 10 mg Lorazepam (Ativan Inj (Vial)) 1 mg IVP ONCE [facility] Stop: 11/13/17 10:00 Last Admin: 11/13/17 09:04 Dose: 1 mg CIWA-Ar Score Document 11/13/17 09:04 DL (Rec: 11/13/17 09:04 DL [id number]) Regimen Current Score Not Applicable Lorazepam (Ativan) 0.5 mg PEG Q6H PRN PRN Reason: Anxiety Last Admin: 11/15/17 04:57 Dose: 0.5 mg CIWA-Ar Score Document 11/15/17 04:57 TF (Rec: 11/15/17 04:57 TF [id number]) Regimen Current Score 0-7 Lorazepam (Ativan Inj (Vial)) 0.5 mg IVP ONCE ONE Stop: 11/15/17 08:58 Last Admin: 11/15/17 09:16 Dose: 0.5 mg CIWA-Ar Score Document 03/22/18 09:16 LS (Rec: 11/15/17 09:17 LS [id number]) Regimen Current Score Not Applicable Methadone HCl () 5 mg PEG BID [facility] Last Admin: 11/13/17 09:09 Dose: Not Given Non-Admin Reason: Patient Refused Pain Assessment Document 11/13/17 09:09 DL (Rec: 11/13/17 09:10 DL [id number]) Pain Level Pain Scale Used 0-10 Intensity (0-10) 0 Methadone HCl () 2.5 mg PEG BID [facility] Last Admin: 11/15/17 09:25 Dose: 2.5 mg Mirtazapine (Remeron) 7.5 mg PO ACHS [facility] Last Admin: 11/12/17 07:02 Dose: 7.5 mg Morphine Sulfate (Morphine (Carpuject)) 2 mg IVP ONCE STA Stop: 11/11/17 16:14 Last Admin: 11/11/17 16:51 Dose: 2 mg Morphine Sulfate (Morphine (Carpuject)) 2 mg IVP ONCE STA Stop: 11/11/17 18:23 Last Admin: 11/11/17 18:25 Dose: 2 mg Morphine Sulfate (Morphine (Carpuject)) 2 mg IVP Q2HR PRN PRN Reason: Pain 8 to 10 Last Admin: 11/12/17 07:03 Dose: 2 mg Pain Assessment Document 11/12/17 07:03 TF (Rec: 11/12/17 07:03 TF [id number]) Pain Level Pain Scale Used 0-10 Intensity (0-10) 7 Re-Assess: Pain Reassessment Document 11/12/17 07:33 DL (Rec: 11/12/17 08:42 DL [id number]) Reassessment Effective/Ineffective Effective Ondansetron HCl (Zofran Inj) 4 mg IVP ONCE STA Stop: 11/11/17 18:23 Last Admin: 11/11/17 18:25 Dose: 4 mg Ondansetron HCl (Zofran Inj) 4 mg IVP Q6HR PRN PRN Reason: Nausea / Vomiting Last Admin: 11/14/17 17:56 Dose: 4 mg Re-Assess: General PRN Medication Reasses Document 11/14/17 18:26 EJG (Rec: 11/14/17 18:30 EJG [id number]) Reassessment Effective/Ineffective Effective Ondansetron HCl (Zofran Odt) 4 mg TL Q6HR PRN PRN Reason: Nausea / Vomiting Last Admin: 11/12/17 10:13 Dose: 4 mg Re-Assess: General PRN Medication Reasses Document 11/12/17 11:13 DL (Rec: 11/12/17 11:19 DL [id number]) Reassessment Effective/Ineffective Effective Polyethylene Glycol (Miralax) 17 gm PEG DAILY [facility] Last Admin: 11/15/17 09:27 Dose: 17 gm Sodium Chloride (Normal Saline Flush 0.9%) 10 ml IVP PRN PRN PRN Reason: NEEDED PER PROVIDER ORDERS Last Admin: 11/14/17 17:56 Dose: 10 ml Sodium Chloride (Normal Saline Flush 0.9%) 10 ml IVP 0100,0900,1700 [facility] Last Admin: 11/15/17 03:13 Dose: Objective - Vital Signs/Intake & Output Reviewed Vital Signs: Yes Vital Signs: Vital Signs x48h Temp Pulse Pulse Resp BP Pulse Ox 11/14/17 15:37 36.9 C 108 H 20 133/53 H 98 11/14/17 14:06 90 20 11/14/17 11:50 36.6 C 85 20 131/56 H 96 Intake & Output: Intake & Output 11/11/17 11/12/17 11/13/17 11/14/17 23:59 23:59 23:59 23:59 Intake Total 470 2121 1891 Output Total 150 1100 275 250 Balance -150 -630 1846 1641 - Objective General Appearance: positive: Alert, Other (Trach and peg tube in place. Patient is cachectic looking) Eyes Bilateral: positive: Normal inspection, PERRL, EOMI, No lid inflammation, Conjunctivae nml, No scleral icterus ENT: positive: ENT inspection nml, Pharynx nml, Dry mucous membranes. negative : Purulent nasal drainage, Pharyngeal erythema, Oral lesions Neck: positive: Nml inspection, Thyroid nml, No JVD, Trachea midline. negative : Lymphadenopathy (R), Lymphadenopathy (L), Stiff neck, Carotid bruit, Tracheal deviation Respiratory: positive: Chest non-tender, Wheezes, Rales, Rhonchi Cardiovascular: positive: Regular rate & rhythm, No murmur, No gallop Abdomen: positive: Non-tender, No organomegaly, Nml bowel sounds. negative: Guarding, Rebound, Hepatomegaly Back: positive: Nml inspection. negative: CVA tenderness (R), CVA tenderness (L ) Skin: positive: Color nml, No rash. negative: Cyanosis, Diaphoresis, Pallor Extremities: positive: Full ROM, Nml appearance, No pedal edema Neurologic/Psychiatric: positive: Oriented x3, CN's nml (2-12), Motor nml, Sensation nml - Lab Results Fish Bones: 11/15/17 06:06 11/15/17 06:06 Other Labs: Lab Results x24hrs 11/14/17 11/14/17 Range/Units 06:00 06:00 WBC 13.4 H (4.8-10.8) x10^3/uL RBC 3.75 L (4.20-5.40) 10^6/uL Hgb 10.0 L (12.0-16.0) g/dL Hct 31.4 L (37.0-47.0) % MCV 83.7 (81.0-99.0) fL MCH 26.7 L (27.0-31.0) pg MCHC 31.9 L (32.0-36.0) g/dL RDW 14.6 (12.0-15.0) % Plt Count 298 (130-450) 10^3/uL MPV 6.6 L (7.9-10.8) fL Sodium 130 L (135-145) mmol/L Potassium 3.5 (3.5-5.0) mmol/L Chloride 96 L (101-111) mmol/L Carbon Dioxide 26 (21-32) mmol/L Anion Gap 8.0 (6-13) BUN 11 (6-20) mg/dL Creatinine 0.3 L (0.4-1.0) mg/dL Estimated GFR (MDRD) 213 (>89) Glucose 90 (70-100) mg/dL Calcium 6.7 L (8.5-10.3) mg/dL - Diagnostic Imaging Diagnostic Imaging Results: positive: Final report reviewed Assessment/Plan - Problem List (1) Laryngeal cancer Impression: The mass in the patient's neck is larger on CT than the previous scan a month ago. She also has multiple new masses throughout her lungs. Patient and family have elected for hospice care and Hospice has met with the patient and her family Patient will be discharged home with hospice on 11/15/17 (2) Bacteremia Impression: Patients blood culture growing Klebsiella Oxytoca Klebsiella Oxytoca and gram positive cocci with sputum positive for staph aureus Both sensitive to Augmentin WBC improving No fevers Plan is for patient to be discharged to hospice on 11/15/17 if improving and stable (3) Lung metastases Impression: Mostly in the left lung but also in the right. The left lung also has a large amount of effusion and 1100 cc were removed via thoracentesis. Unfortunately it appears as if the patient will continue to have tumors in her lungs and will likely from complications of respiratory failure secondary to the laryngeal cancer metastases in her lungs. Patient states that she does not feel as though her breathing is improved at all today despite the thoracentesis Will continue treatment with nebs and abx (4) Malnutrition Impression: The patient has a PEG tube and is receiving Jevity per nutrition. Stable (5) Pleural effusion Impression: Large pleural effusion on the left lung was removed, radiology notes 1100 cc were removed. Continue present care. (6) Pneumonia Impression: Likely postobstructive. Patient was on Aztreonam and WBC had improved from 20.4 to 13.4 Patient down to 4.5L O2 via trach Respiratory cx growing staph areus susceptible to augmentin On Augmentin Will continue abx and wean down O2 Plan for patient to discharge home on 11/15/17 as long as she does improve and remains stable Qualifiers: Pneumonia type: due to unspecified organism Laterality: left Lung location: unspecified part of lung Qualified Code(s): J18.9 - Pneumonia, unspecified organism (7) HTN (hypertension) Impression: Well-managed, continue home care. Qualifiers: Hypertension type: essential hypertension Qualified Code(s): I10 - Essential (primary) hypertension
[2017-11-15] MEDS: SODIUM CHLORIDE 0.9% 1,000 ML IV SCH ×2 (03:12→06:54)
[2017-11-15] MEDS: SODIUM CHLORIDE FLUSH 0.9% 10 ML SYRINGE IVP SCH (03:13)
[2017-11-15] MEDS: LORazepam 0.5 MG TABLET PEG PRN (04:57)
[2017-11-15 06:34] LABS: HGB - HEMOGLOBIN 9.5 g/dL (12.0-16.0); MEAN CORPUSCULAR HEMOGLOBIN 26.9 pg (27.0-31.0); MEAN CORPUSCULAR HGB CONC 32.4 g/dL (32.0-36.0); MEAN CORPUSCULAR VOLUME 82.9 fL (81.0-99.0); MEAN PLATELET VOLUME 6.7 fL (7.9-10.8); RED BLOOD COUNT 3.55 10^6/uL (4.20-5.40); RED CELL DISTRIBUTION WIDTH 14.5 % (12.0-15.0); WHITE BLOOD COUNT 12.8 x10^3/uL (4.8-10.8)
[2017-11-15 06:48] LABS: ALBUMIN 2.2 g/dL (3.2-5.5); ALBUMIN/GLOBULIN RATIO 0.7 (1.0-2.2); ALKALINE PHOSPHATASE 80 IU/L (42-121); ALT ALANINE AMINOTRANSFERASE 37 IU/L (10-60); AST ASPARTATE AMINOTRANSFERASE 27 IU/L (10-42); BILIRUBIN,TOTAL 0.7 mg/dL (0.2-1.0); BUN - BLOOD UREA NITROGEN 6 mg/dL (6-20); CALCIUM 6.5 mg/dL (8.5-10.3); CARBON DIOXIDE - CO2 26 mmol/L (21-32); CHLORIDE 97 mmol/L (101-111); CREATININE < 0.3 mg/dL (0.4-1.0); GFR - MDRD 213 (>89); GLUCOSE 101 mg/dL (70-100); MAGNESIUM 1.7 mg/dL (1.7-2.8); PREALBUMIN 11 mg/dL (18-45); SODIUM 132 mmol/L (135-145); TOTAL PROTEIN 5.3 g/dL (6.7-8.2)
[2017-11-15] MEDS: LEVOTHYROXINE 75 MCG TABLET PEG SCH (06:54)
[2017-11-15 08:04] VITALS: BP 153/67
[2017-11-15] MEDS: IPRATROPIUM/ALBUTEROL 3 ML NEB INH SCH (08:41)
[2017-11-15] MEDS ORDERED: LORazepam 2 MG/ML VIAL IVP ONE (08:57)
[2017-11-15] MEDS ORDERED: LORazepam 2 MG/ML VIAL ONE (09:14)
[2017-11-15] MEDS: FAMOTIDINE 20 MG TABLET PEG SCH (09:24)
[2017-11-15] MEDS: LISINOPRIL 20 MG TABLET PEG SCH (09:25)
[2017-11-15] MEDS: GABAPENTIN 300 MG CAPSULE PEG SCH (09:25)
[2017-11-15] MEDS: METHADONE 5 MG TABLET PEG SCH (09:25)
[2017-11-15] MEDS: amLODIPine 5 MG TABLET PEG SCH (09:26)
[2017-11-15] MEDS: ATENOLOL 25 MG TABLET PEG SCH (09:26)
[2017-11-15] MEDS: POLYETHYLENE GLYCOL 3350 17 GM PACKET PEG SCH (09:27)
[2017-11-15] MEDS: AMOX/CLAV 200 MG/28.5 MG/5 ML SYRINGE PEG SCH (09:29)
--- NOTE | 2017-11-15 10:38 | Discharge Plan ---
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 You presented with shortness of breath and increasing oxygen requirement. You did have a large pleural effusion which was drained by a thoracentesis. You also were found to have pneumonia which is currently being treated. After discussion with palliative care you have come to the decision that you would like to enroll in hospice care. We have arranged for hospice care to start at your home today. I am discharging you home with hospice and have prescribed you medications for pain, anxiety and an antibiotic that you she will continue for the next 10 days to complete treatment for your pneumonia. No Smoking: If you smoke, Please STOP! Call for help. Follow-up with: Zacarias Lord ARNP [Primary Care Provider] -
--- NOTE | 2017-11-15 17:10 | DISCHARGE SUMMARY ---
Discharge Summary Admit Date: 11/11/17 Discharge Date: 11/15/17 Discharging Provider: Jez Neves MD Primary Care Provider: Bruce Barth MD Code Status: Do Not Attempt Resuscitation Condition at Discharge: Fair Discharge Disposition: 50 Hospice/Home DC/Xfer - DIAGNOSES Admission Diagnoses: 1. Healthcare associated pneumonia 2. Pleural effusion, left-sided, large 3. Extensive and diffuse neck and thoracic masses/metastasis 4. 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 Malnutrition/cachexia 6. 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 History of hypertension 8. History of myocardial infarction 9. History of depression Discharge Diagnoses with Status of Each Condition: 1. Laryngeal cancer 2. Bacteremia with gram-negative organism 3. Lung metastasis 4. Healthcare associated pneumonia 5. Pleural effusion, left 6. Malnutrition 7. Hypertension - HPI History of Present Illness: Patient is an 81-year-old female with history of head and neck cancer, laryngectomy, tracheostomy with PEG tube feedings. She has a history of spread of the cancer and is currently undergoing chemotherapy. She also has history of remote [place] and coronary stenting, hypertension, hypothyroidism, depression and chronic pain. The patient and her with dementia being taken care of by their daughter, the caregiver. The patient presented today with more trouble breathing than usual and difficulty clearing secretions. The family tried to suction her at home, but this did not help with her shortness of breath and she was brought to the emergency department. There were no fevers and she had a slight cough. The emergency room findings were that of a large left-sided pleural effusion, which she has had before. The emergency room doctor called the oncologist covering Dr. Robledo, her oncologist. That oncologist recommended that the patient be admitted here for thoracentesis of the left sided pleural effusion by interventional radiology. - HOSPITAL COURSE Hospital Course: The patient was found to have a large left pleural effusion and underwent thoracentesis with removal of 1100 cc of pleural fluid. She was also started on treatment for healthcare associated pneumonia with IV antibiotics. She grew Klebsiella oxytoca and her blood culture and both Klebsiella oxytoca and staph aureus on sputum culture all of which was susceptible to Augmentin. The patient was switched to oral Augmentin for treatment of healthcare associated pneumonia. The patient was seen by palliative care during the hospitalization and with the finding of enlarging neck mass on CT scan from a month ago with multiple new masses throughout her lungs the patient and her family elected for hospice care and met with the hospice team. The patient was discharged home with hospice. Patient's PEG tube and trach continue to be managed during the hospitalization and she continued to receive nutrition with Jevity through the PEG tube and oxygen through the trach. By the time of discharge the patient WBC count had improved to 12.8 from 20.4. She was down to 4.5 L of oxygen and she seemed to be breathing much better. The patient did have a fair bit of anxiety during the hospitalization and was placed on Ativan which seemed to work well for the patient. The patient was discharged home and will meet with hospice later today. Patient did have equipment delivered to her house the day prior and required BLS for transport home. The patient was prescribed Augmentin at discharge for an additional 10 days to complete treatment for healthcare associated pneumonia and bacteremia. The patient was also given prescriptions for methadone which she was started on in the hospital and appeared to control her chronic pain. She was given a prescription for Ativan for her anxiety and morphine sulfate for any breakthrough pain. The remainder of the patient's home medications were continued and will be adjusted by the hospice team. - ALLERGIES Allergies/Adverse Reactions: Allergies Allergy/AdvReac Type Severity Reaction Status Date / Time avocado Allergy Emesis Verified 09/01/17 16:32 mirtazapine AdvReac Mild Dizziness Verified 11/12/17 11:12 fentanyl AdvReac Nausea Verified 09/03/17 18:40 oxycodone AdvReac Nausea Verified 09/03/17 18:40 - MEDICATIONS Home Medications: Ambulatory Orders Medication Instructions Recorded Confirmed RX: Atenolol [Tenormin] 50 mg PEG BID 11/30/13 11/12/17 RX: Lisinopril 40 mg PEG BID 12/17/16 11/12/17 RX: amLODIPine [Norvasc] 10 mg PO DAILY 05/28/17 11/12/17 RX: Acetaminophen 500 - 1,000 mg PEG TID PRN 06/04/17 11/12/17 RX: Ondansetron HCl [Zofran] 4 mg PO Q6H PRN #10 tablet 06/30/17 11/12/17 RX: Lidocaine Patch 5% [Lidoderm 1 each TOP DAILY #14 patch 09/01/17 11/12/17 Patch] RX: Omeprazole [PriLOSEC] 20 mg PEG DAILY 09/20/17 11/12/17 RX: Fluconazole [Diflucan] 100 mg PEG TH 10/12/17 11/12/17 RX: Gabapentin 600 mg PEG QID 10/12/17 11/12/17 RX: Levothyroxine [Synthroid] 150 mcg PO QDAC 11/12/17 11/12/17 Amoxicillin/Potassium Clav 600 mg PEG BID #100 ml 11/15/17 [Augmentin Es-600 Suspension] Morphine Sulfate [Morphine Sulf 5 mg PO Q4H PRN #30 ml 11/15/17 Oral (Roxanol)] RX: LORazepam [Ativan] 1 mg SL Q4HR PRN #30 tablet 11/15/17 RX: Methadone 2.5 mg PEG BID #30 tablet 11/15/17 - PHYSICAL EXAM AT DISCHARGE General Appearance: positive: Alert, Anxious, Other (Trach and PEG tube. Patient appears cachetic.) Eyes Bilateral: positive: Normal inspection, PERRL, EOMI, No lid inflammation, Conjunctivae nml, No scleral icterus ENT: positive: ENT inspection nml, Pharynx nml, Dry mucous membranes. negative : Purulent nasal drainage, Pharyngeal erythema, Oral lesions Neck: positive: Nml inspection, Thyroid nml, No JVD, Trachea midline. negative : Thyromegaly, Lymphadenopathy (R), Lymphadenopathy (L), Stiff neck, Carotid bruit, Tracheal deviation Respiratory: positive: Wheezes, Rales, Rhonchi Cardiovascular: positive: Regular rate & rhythm, No murmur, No gallop Peripheral Pulses: positive: 2+ Abdomen: positive: Non-tender, No organomegaly, Nml bowel sounds, No distention , Other (PEG tube in place) Back: positive: Nml inspection. negative: CVA tenderness (R), CVA tenderness (L ) Skin: positive: Color nml, No rash. negative: Cyanosis, Diaphoresis, Pallor Extremities: positive: Non-tender, Full ROM, Nml appearance, Pedal edema Neurologic/Psychiatric: positive: Oriented x3, CN's nml (2-12), Motor nml, Sensation nml - LABS Result Diagrams: 11/15/17 06:06 11/15/17 06:06 Other Lab Results: Laboratory Results WBC 12.8 x10^3/uL (4.8-10.8) H 11/15/17 06:06 RBC 3.55 10^6/uL (4.20-5.40) L 11/15/17 06:06 Hgb 9.5 g/dL (12.0-16.0) L 11/15/17 06:06 Hct 29.4 % (37.0-47.0) L 11/15/17 06:06 MCV 82.9 fL (81.0-99.0) 11/15/17 06:06 MCH 26.9 pg (27.0-31.0) L 11/15/17 06:06 MCHC 32.4 g/dL (32.0-36.0) 11/15/17 06:06 RDW 14.5 % (12.0-15.0) 11/15/17 06:06 Plt Count 299 10^3/uL (130-450) 11/15/17 06:06 MPV 6.7 fL (7.9-10.8) L 11/15/17 06:06 Neut # 18.9 10^3/uL (1.5-6.6) H 11/11/17 16:30 Lymph # 0.5 10^3/uL (1.5-3.5) L 11/11/17 16:30 Phillips # 0.7 10^3/uL (0.0-1.0) 11/11/17 16:30 Eos # 0.0 10^3/uL (0.0-0.7) 11/11/17 16:30 Baso # 0.1 10^3/uL (0.0-0.1) 11/11/17 16:30 Absolute Nucleated RBC 0.00 x10^3/uL 11/11/17 16:30 Nucleated RBC % 0.0 /100WBC 11/11/17 16:30 Manual Slide Review Indicated 11/11/17 16:30 Platelet Estimate NORMAL (130-450,000) (NORMAL) 11/11/17 16:30 Platelet Morphology NORMAL APPEARANCE (NORMAL) 11/11/17 16:30 RBC Morph Micro Appear 1+ ANISOCYTOSIS (NORMAL) 11/11/17 16:30 PT 12.6 secs (9.9-12.6) 11/12/17 11:42 INR 1.1 (0.8-1.2) 11/12/17 11:42 APTT 23.5 secs (24.9-33.3) L 11/12/17 11:42 Sodium 132 mmol/L (135-145) L 11/15/17 06:06 Potassium 3.4 mmol/L (3.5-5.0) L 11/15/17 06:06 Chloride 97 mmol/L (101-111) L 11/15/17 06:06 Carbon Dioxide 26 mmol/L (21-32) 11/15/17 06:06 Anion Gap 9.0 (6-13) 11/15/17 06:06 BUN 6 mg/dL (6-20) 11/15/17 06:06 Creatinine < 0.3 mg/dL (0.4-1.0) L 11/15/17 06:06 Estimated GFR (MDRD) 213 (>89) 11/15/17 06:06 Glucose 101 mg/dL (70-100) H 11/15/17 06:06 Calcium 6.5 mg/dL (8.5-10.3) L* 11/15/17 06:06 Phosphorus 2.0 mg/dL (2.5-4.6) L 11/15/17 06:06 Magnesium 1.7 mg/dL (1.7-2.8) 11/15/17 06:06 Total Bilirubin 0.7 mg/dL (0.2-1.0) 11/15/17 06:06 AST 27 IU/L (10-42) 11/15/17 06:06 ALT 37 IU/L (10-60) 11/15/17 06:06 Alkaline Phosphatase 80 IU/L (42-121) 11/15/17 06:06 Troponin I < 0.04 ng/mL (<0.49) 11/11/17 16:30 Total Protein 5.3 g/dL (6.7-8.2) L 11/15/17 06:06 Albumin 2.2 g/dL (3.2-5.5) L 11/15/17 06:06 Globulin 3.1 g/dL (2.1-4.2) 11/15/17 06:06 Albumin/Globulin Ratio 0.7 (1.0-2.2) L 11/15/17 06:06 Prealbumin 11 mg/dL (18-45) L 11/15/17 06:06 Lipase 13 U/L (22-51) L 11/11/17 16:30 Ref Lab Test Result REPORT 11/11/17 21:30 - DIAGNOSTIC IMAGING Diagnostic Imaging Results: Final report reviewed Diagnostic Imaging Results Comments: EXAM: [id number] XR/[id number] ([id number]) EXAM: CHEST RADIOGRAPHY EXAM DATE: 11/11/2017 04:43 PM. CLINICAL HISTORY: Dyspnea. COMPARISON: 10/04/2017. TECHNIQUE: 1 view. FINDINGS: Lungs/Pleura: Large left pleural effusion now seen, increased compared to prior. Left basilar consolidation is also increased. Unchanged coarse linear right basilar opacities , likely reflecting atelectasis and scarring. No new right-sided consolidation. No pneumothorax. Mediastinum: Heart size and mediastinum appear unchanged. Atheromatous calcification noted aortic arch. Other: Stable position of chest port catheter. IMPRESSION: 1. Increasing left-sided pleural effusion now large. 2. Left lower lung consolidation is also increased, a component of which likely reflects compressive atelectasis. Underlying infection or other process cannot be excluded. EXAM: [id number] CT/CHTW ([id number]) EXAM: CT CHEST EXAM DATE: 11/11/2017 07:56 PM. CLINICAL HISTORY: Left sided pleural effusion, leukocytosis. COMPARISONS: Chest CT 08/23/2017. TECHNIQUE: Routine helical CT imaging was performed through the chest. IV contrast: 80 ML Isovue 300. Reconstructions: Coronal and sagittal. In accordance with CT protocol optimization, one or more of the following dose reduction techniques were utilized for this exam: automated exposure control, adjustment of mA and/or KV based on patient size, or use of iterative reconstructive technique. FINDINGS: Increased size of the large neck mass occluding the airway and encasing neck vessels. The mass measures 8.8 x 10.7 cm. Patient has a tracheostomy tube. The left subclavian artery appears mostly occluded, appears similar to the prior. High-grade stenosis with consultation seen at the proximal common carotid artery, unchanged. No thoracic aortic aneurysm or dissection. Prominent heart size. Increased paratracheal lymphadenopathy measuring 1.3 cm. Subcarinal lymphadenopathy measures 1.1 cm , increased. Large left pleural effusion is new. There is passive atelectasis with consolidation at the left upper lobe and left lower lobe. Pneumonia not excluded. Multiple new pleural- based masses seen on the left side, the largest is seen posteriorly measuring 4.4 x 2.3 cm most concerning for pleural metastasis. Left apex fibrosis again noted. New right upper lobe pulmonary nodule measures 7 mm. New right middle lobe pulmonary nodule measures 5 mm. Mild right base atelectasis. There is debris within the trachea and fluid in the bilateral bronchi , left greater than right. No acute bone findings are seen. 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 In the upper abdomen, status post cholecystectomy without bile duct dilatation. IMPRESSION: 1. Increased large neck malignant mass as described above. 2. Multiple new left-sided pleural-based masses concerning for pleural metastasis. 3. New large left pleural effusion. Left passive atelectasis. Pneumonia not excluded. 4. New right lung pulmonary nodules most concerning for metastasis. 5. New mediastinal lymphadenopathy concerning for metastasis. 6. There is debris within the trachea and fluid in the bilateral bronchi, left greater than right. 6. See the remainder of the findings as above. EXAM: [id number] US/TATE ([id number]) ULTRASOUND-GUIDED THORACENTESIS: 11/12/2017 CLINICAL INDICATION: Left effusion with atelectasis, respiratory distress. FINDINGS: Following obtaining informed consent, a suitable site in the patient' s left posterior thorax was selected with ultrasound. The skin was prepped and draped in the usual sterile fashion. The skin and soft tissues were anesthetized with lidocaine. A [id number] catheter was inserted into the left pleural space, and approximately 1100 mL of fluid was removed without difficulty. The patient tolerated the procedure well. No immediate complications. IMPRESSION: SUCCESSFUL ULTRASOUND-GUIDED LEFT THORACENTESIS, YIELDING APPROXIMATELY 1100 ML OF FLUID. - FOLLOW UP Follow Up: Patient admitted for healthcare associated pneumonia and left pleural effusion. Patient had effusion drained with thoracentesis 1100 cc was removed. Patient was placed on IV antibiotics and grew Klebsiella oxytoca and staph aureus in sputum and Klebsiella oxytoca in bloodstream. Patient was placed on oral Augmentin which covers both. Patient had significant improvement in her symptoms. Patient was seen by palliative care and she decided to pursue hospice. Patient was discharged with hospice. - TIME SPENT Time Spent in Discharge (Minutes): 75
== END 2017-11-15 11:22 | disposition hospice, home (50) | DRG 178 ==
LOC: ED 15:59 → MS2 20:48
PROVIDERS: ADMIT Internal Medicine; ATTEND Internal Medicine
DX: R09.02 Hypoxemia (principal); J15.211 Pneumonia due to Methicillin susceptible Staphylococcus aureus; E46 Unspecified protein-calorie malnutrition; Z68.1 Body mass index [BMI] 19.9 or less, adult; J91.0 Malignant pleural effusion; E78.00 Pure hypercholesterolemia, unspecified; C78.02 Secondary malignant neoplasm of left lung; K59.09 Other constipation; C78.01 Secondary malignant neoplasm of right lung; C79.89 Secondary malignant neoplasm of other specified sites; R53.83 Other fatigue; R78.81 Bacteremia; E87.1 Hypo-osmolality and hyponatremia; B96.89 Other specified bacterial agents as the cause of diseases classified elsewhere; C13.9 Malignant neoplasm of hypopharynx, unspecified; G89.3 Neoplasm related pain (acute) (chronic); I10 Essential (primary) hypertension; E03.9 Hypothyroidism, unspecified; M19.90 Unspecified osteoarthritis, unspecified site; F32.9 Major depressive disorder, single episode, unspecified; F41.9 Anxiety disorder, unspecified; I77.89 Other specified disorders of arteries and arterioles; Z51.5 Encounter for palliative care; Y95 Nosocomial condition; Z66 Do not resuscitate; Z93.0 Tracheostomy status; Z93.1 Gastrostomy status; Z79.899 Other long term (current) drug therapy; Z95.5 Presence of coronary angioplasty implant and graft; Z85.3 Personal history of malignant neoplasm of breast; I25.2 Old myocardial infarction; Z90.02 Acquired absence of larynx
CPT/HCPCS: 32555; 36415; 71045; 71260; 80048; 80053; 81599; 83690; 83735; 84100; 84134; 84484; 85025; 85610; 85730; 87040; 87070; 87076; 87205; 93005; 94640; 94644; 94645; 96374; 96375; 99232; 99233; 99284; 99285

== ENCOUNTER 2017-11-15 11:35 | Outpatient (CLI) | payer MEDICARE | END 2017-11-15 11:36 | disposition hospice, home (50) | LOC: EMS 11:35 | PROVIDERS: ATTEND Surgery | DX: C32.9 Malignant neoplasm of larynx, unspecified (principal); Z99.81 Dependence on supplemental oxygen; Z93.0 Tracheostomy status; Z93.1 Gastrostomy status | CPT/HCPCS: A0425; A0428 ==